=== PATIENT | male | born 1950 | race Caucasian/White ===

== ENCOUNTER 2016-10-02 05:12 | Day surgery (SDC) | payer MEDICARE, OTHER ==
[2016-10-01 09:59] LABS: HEMATOCRIT 50.1 % (42.0-54.0); HEMOGLOBIN 16.9 g/dL (13.5-17.5); MCH 32.9 pg (26.0-34.0); MCHC 33.7 g/dL (31.0-37.0); MCV 97.7 fL (80.0-100.0); MEAN PLATELET VOLUME 9.9 fL (7.4-10.4); RBC 5.13 10x6/uL (4.20-6.10); RDW 14.4 % (11.5-14.5); WBC 9.9 10x3/uL (4.8-10.8)
[~2016-10-02] VITALS: Ht 188 cm; Wt 172.4 kg
[~2016-10-02 05:12] MED LIST: ALEVE220 MG PO; ASPIRIN325 MG PO; GLUCOSAMINE & C1 CAP PO; HYDROCODONE-APA1 TAB PO; LOPRESSOR25 MG PO; MULTI-DAY VITAM1 TAB PO; ZANAFLEX4 MG PO
[2016-10-02 08:17] VITALS: BP 139/98; Ht 188 cm; Wt 172.4 kg
--- NOTE | 2016-10-02 08:53 | NUR ---
0830 CALLED SURGERY AND REPORTED TO DR. GRAHAM ABOUT REDDENED SORE TO [place] AREA. TOLD TO PROCEED WITH CHECKIN PROCESS.
[2016-10-02] MEDS ORDERED: OXYCODONE HCL10 MG PO (11:57)
--- NOTE | 2016-10-03 08:20 | OP ---
PATIENT NAME: CY BOLES MEDICAL RECORD: [id number] :52 LOCATION:D.FORMERLY [facility] ADMISSION DATE: SURGEON: CHRISTIANO GRAHAM MD DATE OF OPERATION: 10/02/2016 SURGEON: Christiano Graham MD. PREOPERATIVE DIAGNOSES: 1. Symptomatic cholelithiasis. 2. Right upper quadrant pain. 3. Morbid obesity. POSTOPERATIVE DIAGNOSES: 1. Symptomatic cholelithiasis. 2. Right upper quadrant pain. 3. Morbid obesity. PROCEDURE PERFORMED: Laparoscopic cholecystectomy. ANESTHESIA: General. COMPLICATIONS: None. SPECIMENS: Gallbladder. Case was contaminated. ESTIMATED BLOOD LOSS: 30 cc. OPERATIVE COURSE: After consent was obtained, the patient was taken to the operating room and placed in supine position on the operating table. Next, general anesthesia was given via endotracheal intubation after a timeout was taken to confirm the correct patient and procedure. The abdomen was then prepped and draped in typical sterile fashion. Local anesthetic was injected just above the umbilicus. A stab incision was made with an 11-blade scalpel. Using a 5-mm bladeless optical trocar, the abdomen was entered under direct laparoscopic vision. Adequate pneumoperitoneum was achieved. The abdominal cavity was inspected. No evidence of bowel injury. No evidence of bleeding. The patient was then placed in the steep reverse Trendelenburg position. All additional trocars were then placed after the administration of local anesthetic. Under direct laparoscopic vision, two 5-mm trocars in the right upper quadrant, 11-mm trocar in the subxiphoid position and an additional fifth trocar was placed in the right upper quadrant for traction. The patient had a significant amount of intra-abdominal fat even in max reverse Trendelenburg position. The liver was nonvisible and it was covered with greater omentum. Using the extra retractor, the greater omentum was retracted caudad exposing the fundus of the gallbladder. The fundus of the gallbladder was then grasped and retracted cephalad. The infundibulum was grasped and retracted laterally. The peritoneum was incised using electrocautery. Blunt dissection was the performed until the critical view was obtained, cystic duct lateral, cystic artery medial, liver in the posterior window, 3 clips were placed in the proximal cystic duct, 3 clips were placed in the proximal cystic artery, both the duct and artery were then transected with laparoscopic Metzenbaum scissors. The remaining portion of the gallbladder was then dissected from the liver bed using electrocautery. Once complete, it was placed into an EndoCatch bag and removed with the 11-mm OPERATIVE REPORT [id number] CY BOLES and sent for permanent pathology. The operative site was then copiously irrigated and suctioned. Careful attention was paid to hemostasis, which was obtained in the liver bed using electrocautery. At this time, the abdominal cavity was inspected. There was no evidence of bowel injury, no evidence of bleeding, no evidence of bile leak. The entire abdominal cavity was then copiously irrigated and suctioned. Again, the liver bed was inspected, no evidence of bleeding or bile leak. All [address] on both the cystic duct and cystic artery. At this time, all remaining instruments were removed. The abdomen was desufflated. Trocars were then removed. Skin was closed with 4-0 Monocryl, Mastisol and Steri-Strips. At the end of the case, all needle and instrument counts were correct. No complications occurred. The patient was extubated and transferred to the PACU in stable condition. TRANSINT:[id number] Voice Confirmation ID: [id number] DOCUMENT ID: [id number] CHRISTIANO GRAHAM MD at 0820 CC: [id number] DICTATION DATE: 10/02/16 1155 JEWEL SORTER: 10/02/16 1711 [facility] 10/02/16 [facility] [address] [place] [address]
== END 2016-10-02 15:45 | disposition home or self-care (01) ==
LOC: D.OPS 05:12 → D.PAN 10:45 → D.OPS 10:45 → D.PAN 11:00 → D.OPS 15:45
PROVIDERS: Anesthesiology
DX: K80.10 Calculus of gallbladder with chronic cholecystitis without obstruction (principal); E66.01 Morbid (severe) obesity due to excess calories; Z68.42 Body mass index [BMI] 45.0-49.9, adult

== ENCOUNTER 2016-12-10 08:55 | Outpatient (CLI) | payer MEDICARE, OTHER ==
[~2016-12-10] VITALS: Ht 190.5 cm; Wt 163.6 kg
--- NOTE | ~2016-12-10 | HEMODYNAMI ---
PATIENT:CY BOLES MEDICAL RECORD: [id number] : 52 LOCATION:[facility] ADMISSION DATE: 12/10/16 Generatedon:12/10/201611:53 Patient name: CY BOLES Patient #: [id number] SSN: D OB: 1950 Date of study: 12/10/2016 Page: Of Hemodynamic Procedure Report Patient Data Patient Demographics Procedure consent was obtained First Name: CY Gender: Male Last Name: ELVI : 1950 Middle Initial: H Age: 66 year(s) Patient #: [id number] Race: Additional ID: [id number] Contact details Address: [address] State: [place] [facility] [place]: [address] Past Medical History Allergies: No known allergies Admission Admission Data Admission Date: 12/10/2016 Admission Time: 8:55 Height (in.): 75 BSA: 2.82 (m2) Height (cm.): 190.5 BMI: 45 (kg/m2) Weight (lbs.): 360 Weight (kg.): 163.29 Lab Results Lab Result Date: 12/10/2016 Lab Result Time: 9:20 Biochemistry Name Units Result Min Max BUN mg/dl 9 --(*---)-- 7 18 Creatinine mg/dl 1 --(--*-)-- 0.6 1.3 CBC Name Units Result Min Max Hematocrit % 44.9 --(*---)-- 42 54 Hemoglobin g/dl 14.7 --(-*--)-- 13.5 17.5 Procedure Procedure Types Cath Procedure Diagnostic Procedure [facility] w/Coronaries Miscellaneous Procedures Moderate Sedation up to 30 minutes Procedure Description Procedure Date Procedure Date: 12/10/2016 Procedure Start Time: 11:40 Procedure End Time: 11:51 Procedure Staff Name Function Catalino Moore MD Performing Physician Risa Roy RT Scrub Charles Bonner RN Nurse Milton Stringer RT Monitor Procedure Data Cath Procedure Fluoroscopy Diagnostic fluoroscopy Total fluoroscopy Time: 2.6 time: 2.6 min min Diagnostic fluoroscopy Total fluoroscopy dose: dose: 1844 mGy 1844 mGy Contrast Material Contrast Material Type Amount (ml) Isovue 300 79 Entry Location Entry Primary Successful Side Size Upsize Upsize Entry Closure Veras ccessful Closure Location (Fr) 1 (Fr) 2 (Fr) Remarks Device Remarks Radial Right 6 Fr Mechanical artery Short Compression Estimated blood loss: 5 ml Diagnostic catheters Device Type Used For End Catheter Placement Medtronic Dexterity 5Fr Procedure TRAP 4.0 catheter (NO CHARGE) Medtronic Dexterity 5Fr Procedure TRAP 4.5 catheter (NO CHARGE) Procedure Complications No complications Procedure Medications Medication Administration Route Dosage Oxygen NC 2 l/min Heparin Flush Bag added to field 2 bags (1000units/500ml NS) 0.9% NaCl I.V. 100 ml/hr Radial Cocktail added to field 1 syringe (Verapomil 2mg/Nitro 400mcg/Heparin 1500units) Fentanyl I.V. 50 mcg Versed I.V. 1 mg Fentanyl I.V. 50 mcg Versed I.V. 1 mg Fentanyl I.V. 50 mcg Versed I.V. 1 mg Fentanyl I.V. 50 mcg Versed I.V. 1 mg Fentanyl I.V. 50 mcg Versed I.V. 1 mg Fentanyl I.V. 50 mcg Versed I.V. 1 mg Radial Cocktail I.A. 1 syringe (Verapomil 2mg/Nitro 400mcg/Heparin 1500units) Hemodynamics Rest BSA: 2.82 (m2) HGB: 14.7 (g/dl) O2 Consumption: Estimated: 333.76 (ml/min) O2 Co nsumption indexed: Estimated:118.35 (ml/min/m) Heart Rate: 75 (bpm) Snapshots Pre Cath Intra NCS Post Cath Vital Signs Time Heart Resp SPO2 etCO2 PQ0rcog NIBP (mmHg) Rhythm Pain Sedation Rate (ipm) (%) (mmHg) (mmHg) Status Level (bpm) 11:08:53 77 18 98 0 0 127/89(100) A-Fib 0 (11) 10(A) , No pain 11:13:16 66 19 97 0 0 110/83(96) A-Fib 0 (11) 10(A) , No pain 11:17:36 87 16 98 0 0 108/61(93) A-Fib 0 (11) 10(A) , No pain 11:21:56 79 18 95 0 0 119/64(85) A-Fib 0 (11) 10(A) , No pain 11:26:20 73 18 96 0 0 111/55(69) A-Fib 0 (11) 10(A) , No pain 11:30:42 87 18 96 0 0 130/60(83) A-Fib 0 (11) 10(A) , No pain 11:35:09 76 18 96 0 0 119/57(89) A-Fib 0 (11) 10(A) , No pain 11:39:33 88 16 95 0 0 117/55(85) A-Fib 0 (11) 10(A) , No pain 11:44:05 95 18 95 0 0 107/42(64) A-Fib 0 (11) 9(A) , No pain 11:48:31 103 18 94 0 0 102/44(62) A-Fib 0 (11) 9(A) , No pain 11:51:50 101 19 96 0 0 113/49(73) A-Fib 0 (11) 9(A) , No pain Medications Time Medication Route Dose Verified Delivered Reason Notes Effectiveness by by 11:08:01 Oxygen NC 2 l/min Charles Soto Per Ha Bonner RN physician RN 11:08:10 Heparin Flush added 2 bags Charles Kimbley used for Bag to Ha Bonner frog farmer (1000units/500ml field RN NS) 11:08:23 0.9% NaCl I.V. 100 Charles Charles Per ml/hr Ha Bonner RN physician RN 11:08:33 Radial Cocktail added 1 Charles Charles used for (Verapomil to syringe Ha Bonner frog farmer 2mg/Nitro field RN 400mcg/Heparin 1500units) 11:34:13 Fentanyl I.V. 50 mcg Charles Charles for sedation Ha Bonner RN RN 11:34:20 Versed I.V. 1 mg Charels Charles for sedation Ha Bonner RN RN 11:35:37 Fentanyl I.V. 50 mcg Charles Charles for sedation Ha Bonner RN RN 11:35:40 Versed I.V. 1 mg Charles Charles for sedation Bonner Bonner RN RN 11:38:44 Fentanyl I.V. 50 mcg Charles Charles for sedation Ha Bonner RN RN 11:38:47 Versed I.V. 1 mg Charles Charles for sedation Ha Bonner RN RN 11:40:08 Fentanyl I.V. 50 mcg Charles Charles for sedation Ha Bonner RN RN 11:40:11 Versed I.V. 1 mg Charles Charles for sedation Ha Bonner RN RN 11:41:47 Fentanyl I.V. 50 mcg Charles Charles for sedation Ha Bonner RN RN 11:41:50 Versed I.V. 1 mg Charles Charles for sedation Ha Bonner RN RN 11:41:59 Radial Cocktail I.A. 1 Charles Vasquezrey for (Verapomil syringe Ha Moore MD vasodilation 2mg/Nitro RN 400mcg/Heparin 1500units) 11:46:44 Fentanyl I.V. 50 mcg Charles Soto for sedation Ha Bonner RN RN 11:46:46 Versed I.V. 1 mg Charles Soto for sedation Ha Bonner RN oncology rn Log Time Note 10:28:39 Charles Bonner RN sent for patient. Start room use. 10:28:40 Time tracking: Regular hours 10:28:44 Plan of Care:Hemodynamics will remain stable., Cardiac rhythm will remain stable., Comfort level will be maintained., Respiratory function will remain adequate., Patient/ family verbilizes understanding of procedure., Procedure tolerated without complication., Recovers from procedure without complications.. 10:59:56 Patient received from Pre/Post Procedure Room to [facility] 1 Alert and oriented. Tansferred to table in Supine position. 10:59:57 Warm blankets applied, and laurie hugger turned on for patient comfort. 10:59:58 Correct patient and procedure confirmed by team. 10:59:59 Signed procedure consent form obtained from patient. 11:00:00 ECG and BP/O2 sat monitors applied to patient. 11:00:09 H&P Date Dictated: 12/04/2016 Within 30 days and on chart., H&P Addendum completed by physician on day of procedure. (MUST COMPLETE FOR ALL OUTPATIENTS). 11:00:11 Pre-procedure instructions explained to patient. 11:00:11 Pre-op teaching completed and patient verbalized understanding. 11:00:12 Family in waiting room. 11:00:13 Patient NPO since Midnight. 11:07:34 Vital chart was started 11:08:01 Oxygen 2 l/min NC was administered by Charles Bonner RN; Per physician; 11:08:10 Heparin Flush Bag (1000units/500ml NS) 2 bags added to field was administered by Charles Bonner RN; used for procedure; 11:08:23 0.9% NaCl 100 ml/hr I.V. was administered by Charles Bonner RN; Per physician; 11:08:33 Radial Cocktail (Verapomil 2mg/Nitro 400mcg/Heparin 1500units) 1 syringe added to field was administered by Charles Bonner RN; used for procedure; 11:15:25 Patient allergic to No known allergies 11:15:27 Is the patient allergic to Iodine/contrast media? No. 11:15:28 Is patient on blood thinner?Yes 11:15:30 ACC The patient was administered the following blood thiners within the last 24 hours: ACCPlavix 11:15:32 Patient diabetic? No. 11:15:35 Previous problem with sedation/anesthesia? No ? 11:15:35 Snore? Yes 11:15:36 Sleep apnea? No 11:15:37 Deviated septum? No 11:15:38 Opens mouth fully? Yes 11:15:39 Sticks out tongue? Yes 11:15:40 Airway obstruction? No ? 11:15:43 Dentures? Yes out 11:15:46 Modified Abdirashid's test Ulnar < 7 seconds 11:15:48 Patient pain scale 0/10 ?. 11:15:51 IV patent on arrival in left forearm with 0.9% NaCl at [facility]. 11:17:20 Lab Result : BUN 9 mg/dl 11:17:20 Lab Result : Creatinine 1 mg/dl 11:17:20 Lab Result : Hematocrit 44.9 % 11:17:20 Lab Result : Hemoglobin 14.7 g/dl 11:17:23 Lab results completed and on chart. 11:17:25 Right Radial & Right Groin area was prepped with chlora-prep and draped in sterile fashion 11:17:26 Alarms reviewed by RMagda NMagda 11:17:27 Sharps counted by scrub and verified by R.N. 11:17:29 Use device set Radial Dx 11:17:30 MBrace Wrist Support opened to sterile field. 11:17:31 Tegaderm 4 x 4 opened to sterile field. 11:17:32 Acist Manifold opened to sterile field. 11:17:32 Acist Hand Control opened to sterile field. 11:17:33 Acist Syringe opened to sterile field. 11:17:35 Medline Cath Pack opened to sterile field. 11:17:35 Bag Decanter opened to sterile field. 11:17:36 Terumo 6Fr Slender Glidesheath opened to sterile field. 11:17:36 St Bill 260cm J .035 wire opened to sterile field. 11:19:06 Baseline sample Acquired. 11:21:59 Zero performed for pressure channel P1 11:25:00 Patient Weight : 360 kg 11:25:16 Patient Height : 75 cm 11:26:10 Rhythm: atrial fibrillation 11:26:11 Full Disclosure recording started 11:33:53 Physician arrived 11:33:54 Physician arrived 11:33:54 --------ALL STOP TIME OUT------ 11:33:55 Final Timeout: patient, procedure, and site verified with staff and physician. All members of the team are in agreement. 11:33:56 Right Radial & Right Groin site verified by team. 11:33:59 Physical assessment completed. ASA score P 2 - A patient with mild systemic disease as per Catalino Moore MD. 11:34:04 Sedation plan: IV Moderate Sedation Versed, Fentanyl 11:34:13 Fentanyl 50 mcg I.V. was administered by Charles Bonner RN; for sedation; 11:34:20 Versed 1 mg I.V. was administered by Charles Bonner RN; for sedation; 11:35:37 Fentanyl 50 mcg I.V. was administered by Charles Bonner RN; for sedation; 11:35:40 Versed 1 mg I.V. was administered by Charles Bonner RN; for sedation; 11:38:44 Fentanyl 50 mcg I.V. was administered by Charles Bonner RN; for sedation; 11:38:47 Versed 1 mg I.V. was administered by Charles Bonner RN; for sedation; 11:40:08 Fentanyl 50 mcg I.V. was administered by Charles Bonner RN; for sedation; 11:40:11 Versed 1 mg I.V. was administered by Charles Bonner RN; for sedation; 11:40:48 Procedure started. 11:40:54 Local anesthetic to right radial artery with Lidocaine 2% by Catalino Moore MD.INITIAL ACCESS ONLY 11:41:03 A 6 Fr Short sheath was inserted into the Right Radial artery 11:41:47 Fentanyl 50 mcg I.V. was administered by Charles Bonner RN; for sedation; 11:41:50 Versed 1 mg I.V. was administered by Charles Bonner RN; for sedation; 11:41:59 Radial Cocktail (Verapomil 2mg/Nitro 400mcg/Heparin 1500units) 1 syringe I.A. was administered by Catalino Moore MD; for vasodilation; 11:42:29 A Luqittronic Dexterity 5Fr TRAP 4.0 catheter (NO CHARGE) was advanced over the wire and used for Procedure. 11:42:42 LV gram done using PLATT 11:42:49 Injector settings: Ml/sec: 5, Volume: 15, 11:42:54 High Pressure Extension Tubing (Ponce) opened to sterile field. 11:43:32 EF : 50 % 11:43:59 LCA angiography performed. 11:45:55 RCA angiography performed. 11:46:03 Catheter exchanged over wire. 11:46:05 A Medtronic Dexterity 5Fr TRAP 4.5 catheter (NO CHARGE) was advanced over the wire and used for Procedure. 11:46:44 Fentanyl 50 mcg I.V. was administered by Charles Bonner RN; for sedation; 11:46:46 Versed 1 mg I.V. was administered by Charles Bonner RN; for sedation; 11:47:57 LCA angiography performed. 11:49:27 Catheter removed. 11:49:34 Terumo TR Band Large opened to sterile field. 11:49:41 Sheath removed intact; hemostasis achieved with Mechanical Compression to the Right Radial artery. 11:49:44 Procedure ended.(Physican Out) 11:50:12 Fluoroscopy time 02.60 minutes. 11:50:16 Fluoroscopy dose: 1844 mGy 11:50:16 Flurop Dose total: 1844 11:50:22 Contrast amount:Isovue 300 79ml. 11:50:24 Sharps counted by scrub and verified by R.N. 11:50:26 TR band inflated with 12cc of air. 11:50:27 Insertion/operative site no bleeding no hematoma. 11:50:31 Post right radial artery:stable, clean and dry 11:50:38 Post Procedure Pulses reassessed and unchanged 11:50:40 Post-procedure physical assessment completed. ASA score P 2 - A patient with mild systemic disease as per Catalino Moore MD. 11:50:42 Post procedure rhythm: unchanged. 11:50:44 Estimated blood loss: 5 ml 11:50:45 Post procedure instruction explained to patient.Patient verbalizes understanding. 11:50:46 Patient needs reinforcement of post procedure teaching. 11:51:04 Procedure type changed to Cath procedure, Diagnostic procedure, LHC, LHC w/Coronaries, Miscellaneous Procedures, Moderate Sedation up to 30 minutes 11:51:22 Procedure and supply charges have been captured, reviewed, submitted and are correct. 11:51:25 Procedure Complication : No complications 11:51:27 Vital chart was stopped 11:51:27 See physician's report for complete and final results. 11:51:29 Report given to Pre/Post Procedure Room. 11:51:31 Patient transfered to Pre/Post Procedure Room with Stretcher. 11:51:33 Procedure ended. 11:51:33 Full Disclosure recording stopped 11:51:39 End room use (Document Last) Device Usage Item Name Manufacture Quantity Catalog Hospital Part Current Minimal Lot# / Number Charge Number Stock Stock Serial# Code [facility] 1 140-0250-00 [id number] 61028 165525 5 Wrist Vascular Support Dynamics Tegaderm 4 3M 1 [id number] 777643 082581 022533 5 x 4 Acist Acist 1 94645 028639 775608 220110 5 Manifold Medical Systems Inc Acist Hand Acist 1 71689 008100 468383 368600 5 Control Medical Systems Inc Acist Acist 1 06659 982732 240636 589480 20 Syringe Medical Systems Inc Medline Cardinal 1 [id number] 688233 29703 627775 5 Cath Pack Health Bag Microtek 1 2002S [id number] 73348 307453 5 Decanter Medical Inc. Terumo 6Fr Terumo 1 [id number] 062951 358445 406797 [address] St Bill 1 964150 793684 036179 417254 30 260cm J .035 wire Medtronic Medtronic 1 [id number] 569831 019939 5 Dexterity 5Fr TRAP 4.0 catheter (NO CHARGE) High Merit 1 [id number] 038212 57379 157076 10 Pressure Medical Extension Tubing (Ponce) Medtronic Medtronic 1 [id number] 337004 969426 5 Dexterity 5Fr TRAP 4.5 catheter (NO CHARGE) Terumo TR Terumo 1 [id number] 078569 317279 433288 40 Band Large Signature Audit [place] Stage Time Signature Unsigned Intra-Procedure 12/10/2016 Milton Stringer 11:53:41 AM RT(R) Signatures Monitor : Milton Stringer RT Signature : Date : Time : [address] [address]
--- NOTE | ~2016-12-10 | OP ---
PATIENT NAME: CY BOLES MEDICAL RECORD: [id number] :52 LOCATION:D.CAT ADMISSION DATE: SURGEON: RADHA GLEZ MD DATE OF OPERATION: 12/10/2016 PROCEDURES: 1. Left heart catheterization. 2. Selective coronary angiography. 3. Left ventriculogram. PROCEDURE IN DETAIL: After informed consent was obtained and after detailed explanation of risks, benefits as well as alternative therapies, the patient elected to proceed with angiogram and heart catheterization. The right radial area was prepped and draped in normal sterile fashion. The right radial artery was cannulated via modified Seldinger technique with placement of 6-Malay sheath. All catheters exchanged through this sheath. FINDINGS: Left ventriculogram was performed in standard 30-degree PLATT view, reveals preserved cardiac wall motion, ejection fraction 50%. SELECTIVE CORONARY ANGIOGRAPHY: 1. Left main is with no significant angiographic disease. 2. Left anterior descending has moderate irregularities, but no flow-limiting stenosis. 3. Left circumflex shows moderate irregularities, but no flow-limiting stenosis. 4. Right coronary has moderate irregularities, but no flow-limiting stenosis. OVERALL IMPRESSION: No hemodynamically significant coronary artery disease is present. Center medical management on treatment of the atrial fibrillation. TRANSINT:[id number] Voice Confirmation ID: [id number] DOCUMENT ID: [id number] RADHA GLEZ MD CC: [id number] DICTATION DATE: 12/10/16 1152 RECORD CHANGER TESTER: 12/10/16 1826 DEP CLI 12/10/16 [facility] [address] [place] [id number]
[~2016-12-10 08:55] MED LIST changes: +OXYCODONE HCL10 MG PO
[2016-12-10] MEDS ORDERED: CIALIS5 MG PO (09:11)
[2016-12-10 09:12] VITALS: BP 157/94; Ht 190.5 cm; Wt 163.6 kg
[2016-12-10 09:27] LABS: BASOPHILS 0.3 % (0-2); EOSINOPHILS 4.2 % (0-7); HEMATOCRIT 44.9 % (42.0-54.0); HEMOGLOBIN 14.7 g/dL (13.5-17.5); IMMATURE GRANULOCYTES 0.3 % (0-5); LYMPHOCYTES 19.6 % (15-50); MCH 31.1 pg (26.0-34.0); MCHC 32.7 g/dL (31.0-37.0); MCV 94.9 fL (80.0-100.0); MEAN PLATELET VOLUME 9.2 fL (7.4-10.4); MONOCYTES 12.5 % (2-11); NEUTROPHILS 63.1 % (40-80); PLATELET COUNT 227 10x3/uL (130-400); RBC 4.73 10x6/uL (4.20-6.10); RDW 14.7 % (11.5-14.5)
[2016-12-10 09:34] LABS: CALC OSMOLALITY 272 mosm/kg (275-300); CALCIUM 8.8 mg/dL (8.5-10.1); CHLORIDE - SERUM 102 mmol/L (98-107); GLUCOSE 104 mg/dL (74-106); POTASSIUM - SERUM 4.2 mmol/L (3.5-5.1); SODIUM 137 mmol/L (136-145); UREA NITROGEN 9 mg/dL (7-18); eGFR NON AFRICAN AMERICAN 80 mL/min (90-120)
--- NOTE | 2016-12-10 12:12 | NUR ---
1205 RECEIVED PT FROM [employer]BR[employer] ARTIST TECHNICAL. PT IS ALERT, DENIES ANY C/O CHEST PAIN. TR BAND IS CDI, NO BLEEDING OR HEMATOMA NOTED. CAP REFILL TO FINGERS IS BRISK, FINGERS WARM TO TOUCH. AT BEDSIDE. CALL LIGHT IN REACH.
--- NOTE | 2016-12-10 12:21 | NUR ---
TR BAND REMAINS TO R/WRIST CDI NO BLEEDING NO HEMATOMA NOTED. VSS WITH CHEST PAIN DENIED WILL MONITOR
[2016-12-10 12:22] LABS: CKMB 1.5 U/L (0.0-3.6); CREATINE KINASE 99 UL (21-232)
[2016-12-10 12:26] LABS: TROPONIN-I < 0.017 ng/mL (0.000-0.060)
--- NOTE | 2016-12-10 13:16 | NUR ---
1255 PT DENIES ANY C/O. TR BAND CDI, NO BLEEDING OR HEMATOMA NOTED. AT BEDSIDE. PT SANTOS PO FLUIDS.
--- NOTE | 2016-12-10 13:17 | NUR ---
1305 TR BAND DEFLATION HAS BEGUN WITH NO BLEEDING OR HEMATOMA NOTED. PT DENIES ANY C/O. AT BEDSIDE. VSS.
[2016-12-10] MEDS ORDERED: COUMADIN5 MG PO (13:20)
--- NOTE | 2016-12-10 14:20 | NUR ---
1400 TR BAND HAS BEEN DEFLATED AND REMOVED PER PROTOCOL. 2X2 AND TEGADERM APPLIED. NO BLEEDING OR HEMATOMA NOTED AT SITE. PT DENIES ANY C/O PAIN OR NAUSEA. DC INSTRUCTIONS REVIEWED WITH PT AND WHO VERBALIZE UNDERSTANDING. COUMADIN PRESCRIPTION GIVEN TO PT, MEDICATION REVIEWED. PT ESCORTED TO PRIVATE AUTO VIA WC BY STAFF WITH DRIVING HIM HOME.
== END 2016-12-10 14:00 | disposition home or self-care (01) ==
LOC: D.CATH 08:55
PROVIDERS: Internal Medicine Interventional Cardiology
DX: I20.9 Angina pectoris, unspecified (principal); R06.02 Shortness of breath; I48.91 Unspecified atrial fibrillation; R60.0 Localized edema; I42.0 Dilated cardiomyopathy; I50.9 Heart failure, unspecified; Z01.812 Encounter for preprocedural laboratory examination

== ENCOUNTER 2017-09-08 07:51 | Outpatient (CLI) | payer MEDICARE, OTHER ==
[~2017-09-08] VITALS: Ht 190.5 cm; Wt 168.2 kg
--- NOTE | ~2017-09-08 | OP ---
PATIENT NAME: CY BOLES MEDICAL RECORD: [id number] :52 LOCATION:D.CAT ADMISSION DATE: SURGEON: RDAHA GLEZ MD DATE OF OPERATION: 09/08/2017 PROCEDURES: 1. Aortofemoral runoff. 2. Abdominal aortography. INDICATION: Leg pain compatible with claudication. PROCEDURE IN DETAIL: After informed consent was obtained and after a detailed explanation of the risks, benefits as well as alternative therapies, the patient elected to proceed with angiogram and aortofemoral runoff. The right femoral area was prepped and draped in normal sterile fashion. The right femoral artery was cannulated via modified Seldinger technique with placement of 5-Tajik sheath. All catheters exchanged through this sheath. FINDINGS: The abdominal aortography was performed. The catheter was pulled down for aortofemoral runoff. Abdominal aortography reveals no significant non-aortic disease. No dissection or aneurysm formation. No renal artery stenosis. RIGHT LEG: A. Iliac: The common internal and external iliacs have mild irregularities, but none greater than 10%. No flow-limiting stenosis. B. Femoral system: The common superficial and deep femoral have minimal disease, nothing greater than 10%. C. Popliteal and infrapopliteal vessels are widely patent. LEFT LEG: A. Iliac: The common internal and external iliacs have mild irregularities, but none greater than 10%. No flow-limiting stenosis. B. Femoral system: The common superficial and deep femoral have minimal disease, nothing greater than 10%. C. Popliteal and infrapopliteal vessels are widely patent. OVERALL IMPRESSION: No significant peripheral vascular disease is present. Leg pain is non-arterial vascular in etiology. TRANSINT:[id number] Voice Confirmation ID: [id number] DOCUMENT ID: [id number] RADHA GLEZ MD CC: [id number] DICTATION DATE: 09/08/17 1014 UNIVERSAL BANKER: 09/08/17 1221 [facility] [address] [place] [address]
--- NOTE | ~2017-09-08 | HEMODYNAMI ---
PATIENT:CY BOLES MEDICAL RECORD: [id number] : 52 LOCATION:[facility] ADMISSION DATE: 09/08/17 Generatedon:09/08/201710:13 Patient name: CY BOLES Patient #: [id number] SSN: D OB: 1950 Date of study: 09/08/2017 Page: Of Hemodynamic Procedure Report Patient Data Patient Demographics Procedure consent was obtained First Name: CY Gender: Male Last Name: ELVI : 1950 [facility] Initial: H Age: 67 year(s) Patient #: [id number] Race: Additional ID: [id number] Contact details Address: [address] State: [place] City: [facility] Zip code: [address] Past Medical History Allergies: No known allergies Admission Admission Data Admission Date: 09/08/2017 Admission Time: 7:51 Lab Results Lab Result Date: 09/08/2017 Lab Result Time: 0:00 Biochemistry Name Units Result Min Max BUN mg/dl 11 --(-*--)-- 7 18 Creatinine mg/dl 1.2 --(---*)-- 0.6 1.3 CBC Name Units Result Min Max Hemoglobin g/dl 16.2 --(--*-)-- 13.5 17.5 Coagulation Name Units Result Min Max PT sec 14.4 --(---*)-- 11.6 15 Procedure Procedure Types Cath Procedure Miscellaneous Procedures Peripheral Cath Diagnostic Procedure Cath Peripheral Kzgxw-Alsskji-Hsu-Off Procedure Description Procedure Date Procedure Date: 09/08/2017 Procedure Start Time: 10:06 Procedure End Time: 10:13 Procedure Staff Name Function Catalino Moore MD Performing Physician Chiqui Grewal RT Monitor Sherorn Brownlee RT Scrub Trang Guajardo RN Nurse Procedure Data Cath Procedure Fluoroscopy Diagnostic fluoroscopy Total fluoroscopy Time: 0.4 time: 0.4 min min Diagnostic fluoroscopy Total fluoroscopy dose: 367 dose: 367 mGy mGy Contrast Material Contrast Material Type Amount (ml) Isovue 300 61 Entry Location Entry Primary Successful Side Size Upsize Upsize Entry Closure Succes sful Closure Location (Fr) 1 (Fr) 2 (Fr) Remarks Device Remarks Femoral Right 5 Fr Exoseal artery Estimated blood loss: 10 ml Diagnostic catheters Device Type Used For End Catheter Placement DIAGNOSTIC UF 5Fr Procedure catheter ([id number]) Procedure Complications No complications Procedure Medications Medication Administration Route Dosage 0.9% NaCl I.V. 100 ml/hr Oxygen NC 2 l/min Lidocaine 2% added to field 20 Heparin Flush Bag added to field 2 bags (1000units/500ml NS) Fentanyl I.V. 100 mcg Versed I.V. 2 mg Versed I.V. 2 mg Fentanyl I.V. 100 mcg Versed I.V. 2 mg Hemodynamics Rest HGB: 16.2 (g/dl) Heart Rate: 94 (bpm) Snapshots Pre Cath Intra NCS Post Cath Vital Signs Time Heart Resp SPO2 etCO2 NIBP (mmHg) Rhythm Pain Sedation Rate (ipm) (%) (mmHg) Status Level (bpm) 9:47:10 89 23 96 0 154/104(128) NSR 0 (11) 10(A) , No pain 9:52:15 78 15 99 36.8 168/108(125) NSR 0 (11) 10(A) , No pain 9:56:47 77 15 99 14.3 157/106(128) NSR 0 (11) 10(A) , No pain 10:01:20 95 20 97 0 156/77(117) NSR 0 (11) 10(A) , No pain 10:05:46 96 16 97 42.9 152/115(133) NSR 0 (11) 10(A) , No pain 10:10:08 88 15 99 0 159/100(145) NSR 0 (11) 10(A) , No pain Medications Time Medication Route Dose Verified Delivered Reason Notes E ffectiveness by by 9:39:34 0.9% NaCl I.V. 100ml/hr Catalino Costello used for Teresa Guajardo RN procedure 9:39:44 Oxygen NC 2 l/min Catalino Costello Per Teresa Guajardo RN physician 9:39:54 Lidocaine 2% added 20ml Catalino Bae for local to vial Teresa Moore MD anesthetic field 9:40:06 Heparin Flush added 2 bags Catalino Bae used for Bag to Teresa Moore MD procedure (1000units/500ml field NS) 10:04:10 Fentanyl I.V. 100 mcg Catalino Costello for Teresa Guajardo RN sedation 10:04:20 Versed I.V. 2 mg Catalino Costello for Teresa Guajardo RN sedation 10:06:06 Versed I.V. 2 mg Catalino Costello for Teresa Guajardo RN sedation 10:07:32 Fentanyl I.V. 100 mcg Catalino Costello for Teresa Guajardo RN sedation 10:08:14 Versed I.V. 2 mg Catalino Costello for Teresa Guajardo RN sedation Procedure Log Time Note 9:35:10 Sherron Brownlee RT(R) sent for patient. Start room use. 9:39:34 0.9% NaCl 100ml/hr I.V. was administered by Trang Guajardo RN; used for procedure; 9:39:44 Oxygen 2 l/min NC was administered by Trang Guajardo RN; Per physician; 9:39:54 Lidocaine 2% 20ml vial added to field was administered by Catalino Moore MD; for local anesthetic; 9:40:06 Heparin Flush Bag (1000units/500ml NS) 2 bags added to field was administered by Catalino Moore MD; used for procedure; 9:44:44 Time tracking: Regular hours 9:44:49 Plan of Care:Hemodynamics will remain stable., Cardiac rhythm will remain stable., Comfort level will be maintained., Respiratory function will remain adequate., Patient/ family verbilizes understanding of procedure., Procedure tolerated without complication., Recovers from procedure without complications.. 9:44:55 Patient received from Pre/Post Procedure Room to CCL 2 Alert and oriented. Tansferred to table in Supine position. 9:44:57 Warm blankets applied, and laurie hugger turned on for patient comfort. 9:44:57 Correct patient and procedure confirmed by team. 9:45:02 Signed procedure consent form obtained from patient. 9:45:11 ECG and BP/O2 sat monitors applied to patient. 9:45:37 H&P Date Dictated: 08/28/2017 Within 30 days and on chart., H&P Addendum completed by physician on day of procedure. (MUST COMPLETE FOR ALL OUTPATIENTS). 9:45:39 Pre-procedure instructions explained to patient. 9:45:40 Family in waiting room. 9:45:42 Patient NPO since Midnight. 9:45:52 Patient allergic to No known allergies 9:45:56 Is the patient allergic to Iodine/contrast media? No. 9:45:56 Vital chart was started 9:45:59 Was the patient premedicated? Yes 9:46:06 Is patient on blood thinner?No 9:46:08 Patient diabetic? No. 9:46:22 Snore? No 9:46:24 Sleep apnea? No 9:46:33 Dentures? No ? 9:46:46 Patient pain scale 0/10 ?. 9:47:00 IV patent on arrival in left forearm with 0.9% NaCl at [facility]. 9:47:44 Lab Result : BUN 11 mg/dl 9:47:44 Lab Result : Hemoglobin 16.2 g/dl 9:47:44 Lab Result : Creatinine 1.2 mg/dl 9:47:44 Lab Result : PT 14.4 sec 9:47:50 Lab results completed and on chart. 9:47:55 Bilateral groins area was prepped with chlora-prep and draped in sterile fashion 9:47:56 Alarms reviewed by R. N. 9:47:56 Sharps counted by scrub and verified by R.N. 9:48:28 Baseline sample Acquired. 9:48:46 Full Disclosure recording started 9:59:00 Rhythm: atrial fibrillation 9:59:05 Physician paged 10:03:41 Zero performed for pressure channel P1 10:03:47 Zero performed for pressure channel P1 10:03:53 Physician arrived 10:03:54 --------ALL STOP TIME OUT------ 10:03:55 Final Timeout: patient, procedure, and site verified with staff and physician. All members of the team are in agreement. 10:04:05 Bilateral groins site verified by team. 10:04:09 Physical assessment completed. ASA score P 2 - A patient with mild systemic disease as per Catalino Moore MD. 10:04:10 Fentanyl 100 mcg I.V. was administered by Trang Guajardo RN; for sedation; 10:04:14 Sedation plan: IV Moderate Sedation Medication:Versed, Fentanyl 10:04:20 Versed 2 mg I.V. was administered by Trang Guajardo RN; for sedation; 10:05:03 Use device set Femoral Dx 10:05:05 ACIST Syringe (73013) opened to sterile field. 10:05:05 Bag Decanter (2002S) opened to sterile field. 10:05:12 Medline Cath Pack ([id number]) opened to sterile field. 10:05:13 SHEATH 5FR Clarinda ([id number]) opened to sterile field. 10:05:14 DIAGNOSTIC WIRE .035 260cm J wire (773511) opened to sterile field. 10:05:15 ACIST Hand Control (83587) opened to sterile field. 10:05:16 ACIST Manifold (10389) opened to sterile field. 10:05:20 Tegaderm 4 x 4 (1626W) opened to sterile field. 10:05:21 PERCUTANEOUS ENTRY 19GA needle opened to sterile field. 10:06:06 Versed 2 mg I.V. was administered by Trang Guajardo RN; for sedation; 10:06:24 Procedure started. 10:06:34 Local anesthetic to right femoral artery with Lidocaine 2% by Catalino Moore MD.INITIAL ACCESS ONLY 10:07:17 A 5 Fr sheath was inserted into the Right Femoral artery 10:07:32 Fentanyl 100 mcg I.V. was administered by Trang Guajardo RN; for sedation; 10:07:56 A DIAGNOSTIC UF 5Fr catheter ([id number]) was advanced over the wire and used for Procedure.AFRO 10:08:13 Left leg runoff performed. 10:08:14 Versed 2 mg I.V. was administered by Trang Guajardo RN; for sedation; 10:08:27 Right leg runoff performed. 10:09:05 EXOSEAL 5Fr (EX500) opened to sterile field. 10:11:40 Sheath removed intact; hemostasis achieved with Exoseal to the Right Femoral artery. 10:11:42 Procedure ended.(Physican Out) 10:11:53 Fluoroscopy time 00.40 minutes. 10:11:57 Fluoroscopy dose: 367 mGy 10:11:57 Flurop Dose total: 367 10:12:01 Contrast amount:Isovue 300 61ml. 10:12:02 Sharps counted by scrub and verified by R.N. 10:12:07 Insertion/operative site no bleeding no hematoma. 10:12:11 Post-op/insertion site Right Femoral artery dressed using a 4 x 4 and Tegaderm. 10:12:13 Post Procedure Pulses reassessed and unchanged 10:12:20 Post procedure rhythm: unchanged. 10:12:24 Estimated blood loss: 10 ml 10:12:26 Post procedure instruction explained to patient.Patient verbalizes understanding. 10:12:41 Procedure and supply charges have been captured, reviewed, submitted and are correct. 10:13:04 Procedure Complication : No complications 10:13:07 Vital chart was stopped 10:13:07 See physician's report for complete and final results. 10:13:09 Report given to Pre/Post Procedure Room. 10:13:13 Patient transfered to Pre/Post Procedure Room with Stretcher. 10:13:15 Procedure ended. 10:13:15 Full Disclosure recording stopped 10:13:17 End room use (Document Last) Device Usage Item Name Manufacture Quantity Catalog Hospital Part Current Minimal Lot# / Number Charge Number Stock Stock Serial# Code ACIST Acist 1 10674 133763 772377 516355 20 Syringe Medical (47467) Systems Inc Bag Decanter Microtek 1 2001S 133858 40754 111946 5 (2001S) Medical Inc. Medline Cath Cardinal 1 [id number] 419985 71321 927007 5 Pack Health ([id number]) SHEATH 5FR Terumo 1 UOS419 272737 024275 553717 40 Clarinda (GLE453) DIAGNOSTIC St Bill 1 673382 963818 201692 222122 30 WIRE .035 260cm J wire (244287) ACIST Hand Acist 1 22514 050188 817261 255015 5 Control Medical (18243) Systems Inc ACIST Acist 1 34717 465602 268009 463603 5 Manifold Medical (22664) Systems Inc Tegaderm 4 x 3M 1 1626W 692409 479740 224661 5 4 (1626W) PERCUTANEOUS Cook Medical 1 [id number] 602705 702455 5 ENTRY 19GA needle DIAGNOSTIC Cardinal 1 [id number] 236966 932896 550513 10 UF 5Fr Health catheter ([id number]) EXOSEAL 5Fr Cardinal 1 EX500 794674 004510 449005 10 (EX500) Health Signature Audit Meraux Stage Time Signature Unsigned Intra-Procedure 09/08/2017 Chiqui Grewal 10:13:40 AM RT(R) Signatures Monitor : Chiqui Grewal Signature : RT Date : Time : [address] [place] [address]
[~2017-09-08 07:51] MED LIST changes: +CIALIS5 MG PO; +COUMADIN5 MG PO
[2017-09-08 08:11] VITALS: BP 157/76; Ht 190.5 cm; Wt 168.2 kg
[2017-09-08 08:28] LABS: BASOPHILS 0.3 % (0-2); EOSINOPHILS 2.8 % (0-7); HEMATOCRIT 47.5 % (42.0-54.0); HEMOGLOBIN 16.2 g/dL (13.5-17.5); IMMATURE GRANULOCYTES 0.5 % (0-5); LYMPHOCYTES 17.8 % (15-50); MCH 32.9 pg (26.0-34.0); MCHC 34.1 g/dL (31.0-37.0); MCV 96.3 fL (80.0-100.0); MEAN PLATELET VOLUME 9.5 fL (7.4-10.4); MONOCYTES 9.3 % (2-11); NEUTROPHILS 69.3 % (40-80); PLATELET COUNT 197 10x3/uL (130-400); RBC 4.93 10x6/uL (4.20-6.10); RDW 14.2 % (11.5-14.5); WBC 10.1 10x3/uL (4.8-10.8)
[2017-09-08 08:44] LABS: INR 1.16 (0.85-1.17); PROTIME 14.4 SECONDS (11.6-15.0)
[2017-09-08 08:48] LABS: ANION GAP 14.3 mmol/L (8-16); CALCIUM 8.9 mg/dL (8.5-10.1); CARBON DIOXIDE 26.3 mmol/L (21.0-32.0); CREATININE - SERUM 1.2 mg/dL (0.6-1.3); POTASSIUM - SERUM 4.6 mmol/L (3.5-5.1)
== END 2017-09-08 12:55 | disposition home or self-care (01) ==
LOC: D.CATH 07:51
PROVIDERS: Internal Medicine Interventional Cardiology
DX: M79.605 Pain in left leg (principal); M79.604 Pain in right leg; Z01.812 Encounter for preprocedural laboratory examination

== ENCOUNTER 2018-11-05 23:23 | Inpatient (IN) | payer MEDICARE, OTHER ==
[2018-11-05 23:50] LABS: HEMATOCRIT 45.2 % (42.0-54.0); HEMOGLOBIN 15.9 g/dL (13.5-17.5); MCH 32.9 pg (26.0-34.0); MCHC 35.2 g/dL (31.0-37.0); MCV 93.6 fL (80.0-100.0); MEAN PLATELET VOLUME 9.5 fL (7.4-10.4); PLATELET COUNT 181 10x3/uL (130-400); RBC 4.83 10x6/uL (4.20-6.10); RDW 14.2 % (11.5-14.5); WBC 28.2 10x3/uL (4.8-10.8)
[2018-11-06] VITALS (8 sets, daily range): BP systolic 109–139; BP diastolic 60–102; BMI 41.3; BMI 41.2
[2018-11-06 00:02] LABS: ANION GAP 16.1 mmol/L (8-16); BILIRUBIN - TOTAL 1.07 mg/dL (0.2-1.3); CALCIUM 8.3 mg/dL (8.5-10.1); CARBON DIOXIDE 19.5 mmol/L (21.0-32.0); CREATININE - SERUM 1.7 mg/dL (0.6-1.3); POTASSIUM - SERUM 4.6 mmol/L (3.5-5.1); PROTEIN - SERUM 6.9 g/dL (6.4-8.2)
[2018-11-06 00:04] LABS: APTT 55.3 SECONDS (22.8-39.4); INR 3.28 (0.85-1.17); PROTIME 32.6 SECONDS (11.6-15.0)
--- NOTE | 2018-11-06 00:23 | NUR ---
ULTRASOUND AT PT'S BEDSIDE TO DO STUDY.
[2018-11-06 00:28] LABS: LYMPHOCYTES 3 % (15-50); MONOCYTES 5 % (2-11); NEUTROPHILS 82 % (40-80); PLATELET ESTIMATE NORMAL
--- NOTE | 2018-11-06 01:28 | NUR ---
PT TO RADIOLOGY.
[2018-11-06 01:31] LABS: APPEARANCE CLEAR (CLEAR); BACTERIA NONE SEEN /hpf (NONE SEEN); BILIRUBIN NEGATIVE (NEGATIVE); COLOR DK YELLOW (YELLOW); EPITHELIAL CELLS 0-5 /hpf (0-5); GLUCOSE NEGATIVE (NEGATIVE); KETONE NEGATIVE (NEGATIVE); NITRITE NEGATIVE (NEGATIVE); PROTEIN TRACE mg/dL (NEGATIVE); RED CELLS - URINE RARE /hpf (0-5); WHITE CELLS - URINE 0-5 /hpf (0-5)
[2018-11-06 01:32] LABS: AMORPHOUS SEDIMENT >1+ /lpf (NONE SEEN); GRANULAR CAST 0-5 /lpf (NONE SEEN)
--- NOTE | 2018-11-06 01:40 | NUR ---
PT'S IV ANTIBIOTIC INVANZ FINISHED.
--- NOTE | 2018-11-06 01:52 | NUR ---
PT RETURNED FROM RADIOLOGY.
--- NOTE | 2018-11-06 02:05 | NUR ---
PT'S IV INFUSION OF NORMAL SALINE RATE CHANGED FROM 125ML/HR TO A BOLUS. INFUSION AT RATE OF 125ML/HR STOPPED AT THIS TIME AND BOLUS STARTED.
--- NOTE | 2018-11-06 03:45 | NUR ---
RECIEVED PT FROM ER VIA BED WITH HOSPITAL STAFF PRESENT. ALERT AND ORIENTED X4. RESPIRATIONS EVEN AND UNLABORED. VS STABLE AND AFEBRILE. NO VISUAL CUES OF DISTRESS NOTED. INSTRUCTED ON USING CALL LIGHT SYSTEM FOR ASSISTANCE. STATED HE UNDERSTOOD. DENIES ANY OTHER NEEDS AT THIS TIME. BED LOW, SIDE RAILS UP X2. CALL LIGHT IN REACH. WILL CONTINUE TO MONITOR.
[2018-11-06 11:20] LABS: BASOPHILS 0 % (0-2); EOSINOPHILS 0 % (0-7); HEMOGLOBIN 14.3 g/dL (13.5-17.5); IMMATURE GRANULOCYTES 2.4 % (0-5); LYMPHOCYTES 2.7 % (15-50); MCH 33.5 pg (26.0-34.0); MCHC 35.8 g/dL (31.0-37.0); MCV 93.7 fL (80.0-100.0); MEAN PLATELET VOLUME 9.8 fL (7.4-10.4); MONOCYTES 4.1 % (2-11); NEUTROPHILS 90.8 % (40-80); PLATELET COUNT 193 10x3/uL (130-400); RBC 4.27 10x6/uL (4.20-6.10); RDW 14.3 % (11.5-14.5); WBC 29.7 10x3/uL (4.8-10.8)
--- NOTE | 2018-11-06 15:27 | NUR ---
[facility] READY TO PICK HIM UP TO GO TO SURGERY. JUST GOT PHONE CALL THAT THE [facility] ARE READY TO BE GIVEN.
--- NOTE | 2018-11-06 17:45 | NUR ---
RECEIVED TO ROOM AND STABLE AT THIS TIME.NO COMPLAINTS
[2018-11-07] VITALS: BP 132/53
[2018-11-07 04:00] VITALS: BP 136/73
[2018-11-07 07:44] LABS: HEMATOCRIT 37.6 % (42.0-54.0); HEMOGLOBIN 12.8 g/dL (13.5-17.5); MCH 32.6 pg (26.0-34.0); MCV 95.7 fL (80.0-100.0); MEAN PLATELET VOLUME 9.6 fL (7.4-10.4); PLATELET COUNT 208 10x3/uL (130-400); RBC 3.93 10x6/uL (4.20-6.10); RDW 14.7 % (11.5-14.5); WBC 23.4 10x3/uL (4.8-10.8)
[2018-11-07 07:54] LABS: ALBUMIN 1.7 g/dL (3.4-5.0); ANION GAP 15.6 mmol/L (8-16); BILIRUBIN - TOTAL 1.04 mg/dL (0.2-1.3); CALCIUM 7.3 mg/dL (8.5-10.1); CARBON DIOXIDE 21.7 mmol/L (21.0-32.0); CREATININE - SERUM 1.4 mg/dL (0.6-1.3); POTASSIUM - SERUM 4.3 mmol/L (3.5-5.1); PROTEIN - SERUM 6.2 g/dL (6.4-8.2)
[2018-11-07 08:17] LABS: LYMPHOCYTES 3 % (15-50); MONOCYTES 5 % (2-11); NEUTROPHILS 85 % (40-80); PLATELET ESTIMATE NORMAL
[2018-11-07 09:45] LABS: INR 2.28 (0.85-1.17); PROTIME 24.4 SECONDS (11.6-15.0)
[2018-11-07 09:50] VITALS: BP 128/66
[2018-11-07 14:16] VITALS: BP 131/69
[2018-11-07 17:19] VITALS: BP 121/79
--- NOTE | 2018-11-07 20:05 | NUR ---
LYING IN BED. ALERT AND ORIENTED X4. RESP IRREG. BBS EXP WHEEZES. NONPROD COUGH NOTED. ABD IS DISTENDED AND FIRM. BS ARE HYPOACTIVE X4 QUADS. SCROTAL EDEMA AND REDNESS NOTED. LOMBARDO CATH PATENT AND DRAINING STEPHON URINE. 2+ EDEMA NOTED TO BLE. SCDS IN USE BILAT. NS @ 125 ML/HR INFUSING IN LT HAND WITHOUT DIFF. SALINE LOCK NOTED TO RT HAND. RATES PAIN IN SCROTUM 9. SR ELEVATED X2. CL IN REACH. MEDICATED WITH MORPHINE FOR PAIN.
[2018-11-07 20:32] VITALS: BP 123/64
[2018-11-08 01:01] VITALS: BP 125/81
--- NOTE | 2018-11-08 02:35 | NUR ---
MEDICATED WITH MORPHINE FOR C/O PAIN IN SCROTUM RATING 9. LARGE AMT OF YELLOW DRAINAGE NOTED ON BLUE PADS FROM SCROTUM. PADS CHANGED. PT HAS DIFF TURNING IN BED AND REQUIRED STAFF X2 TO TURN HIM DUE TO THE PAIN. CL IN REACH.
[2018-11-08 07:20] LABS: BASOPHILS 0.2 % (0-2); EOSINOPHILS 1.3 % (0-7); HEMATOCRIT 37.2 % (42.0-54.0); HEMOGLOBIN 12.8 g/dL (13.5-17.5); IMMATURE GRANULOCYTES 1.5 % (0-5); LYMPHOCYTES 5.9 % (15-50); MCH 32.8 pg (26.0-34.0); MCHC 34.4 g/dL (31.0-37.0); MCV 95.4 fL (80.0-100.0); MEAN PLATELET VOLUME 9.6 fL (7.4-10.4); MONOCYTES 7.8 % (2-11); NEUTROPHILS 83.3 % (40-80); PLATELET COUNT 207 10x3/uL (130-400); RDW 14.9 % (11.5-14.5); WBC 18.3 10x3/uL (4.8-10.8)
[2018-11-08 07:32] LABS: INR 2.02 (0.85-1.17); PROTIME 22.2 SECONDS (11.6-15.0)
--- NOTE | 2018-11-08 07:54 | NUR ---
PT ALERT X 4. EXPIRATORY WHEEZES TO ALL WILLAMS. IV TO LEFT HAND, PATENT, DRESSING CLEAN DRY AND INTACT. IV TO RIGHT HAND, SALINE LOCKED. ADBOMEN DISTENDED AND FIRM. SCD'S IN PLACE. PT REPORTING PAIN OF 9/10. BED LOW, CALL LIGHT IN REACH. NO OTHER NEEDS AT THIS TIME.
[2018-11-08 08:33] LABS: ALBUMIN 1.5 g/dL (3.4-5.0); BILIRUBIN - TOTAL 1.47 mg/dL (0.2-1.3); CALCIUM 7.5 mg/dL (8.5-10.1); CARBON DIOXIDE 23.1 mmol/L (21.0-32.0); CREATININE - SERUM 1.2 mg/dL (0.6-1.3); POTASSIUM - SERUM 4.1 mmol/L (3.5-5.1); PROTEIN - SERUM 6.1 g/dL (6.4-8.2)
[2018-11-08 10:12] VITALS: BP 131/76
[2018-11-08 14:37] VITALS: BP 172/95
[2018-11-08 18:17] VITALS: BP 156/93
--- NOTE | 2018-11-08 19:45 | NUR ---
LYING IN BED. ALERT AND ORIENTED X4. RATES PAIN IN SCROTUM 9. SCROTAL EDEMA AND REDNESS NOTED WITH YELLOW DRAINAGE. LOMBARDO CATH PATENT AND DRAINING STEPHON URINE. ABD OBESE, FIRM AND BS HYPOACTIVE X4 QUADS. 2+ EDEMA NOTED TO BLE. SCDS IN USE BILAT. NS @ 10 ML/HR INFUSING IN LT HAND. SR ELEVATED X2. CL IN REACH.
[2018-11-08 20:00] VITALS: BP 146/87
--- NOTE | 2018-11-08 20:45 | NUR ---
MEDICATED WITH MORPHINE FOR C/O PAIN IN SCROTUM. CL IN REACH.
[2018-11-09] VITALS: BP 151/76
--- NOTE | 2018-11-09 00:20 | NUR ---
MEDICATED WITH TORADOL ORDERED FOR C/O PAIN IN SCROTUM. CL IN REACH.
--- NOTE | 2018-11-09 03:51 | NUR ---
HAS RESTED WELL SINCE TORADOL WAS GIVEN. NO DISTRESS. CL IN REACH.
[2018-11-09 04:00] VITALS: BP 156/75
--- NOTE | 2018-11-09 04:00 | NUR ---
WOKE UP AND REQUESTED PAIN MED. MEDICATED WITH MORPHINE FOR C/O PAIN IN SCROTUM.
[2018-11-09 08:00] VITALS: BP 141/83
[2018-11-09 08:01] LABS: BASOPHILS 0.2 % (0-2); EOSINOPHILS 2.3 % (0-7); HEMATOCRIT 38.9 % (42.0-54.0); IMMATURE GRANULOCYTES 2.5 % (0-5); LYMPHOCYTES 7.8 % (15-50); MCH 31.7 pg (26.0-34.0); MCHC 33.4 g/dL (31.0-37.0); MCV 94.9 fL (80.0-100.0); MEAN PLATELET VOLUME 9.6 fL (7.4-10.4); NEUTROPHILS 77.2 % (40-80); PLATELET COUNT 234 10x3/uL (130-400)
[2018-11-09 08:06] LABS: INR 1.8 (0.85-1.17); PROTIME 20.3 SECONDS (11.6-15.0)
[2018-11-09 08:25] LABS: ALBUMIN 1.4 g/dL (3.4-5.0); ANION GAP 12.8 mmol/L (8-16); BILIRUBIN - TOTAL 1.55 mg/dL (0.2-1.3); CALCIUM 7.8 mg/dL (8.5-10.1); CARBON DIOXIDE 26.1 mmol/L (21.0-32.0); CREATININE - SERUM 1.3 mg/dL (0.6-1.3); POTASSIUM - SERUM 3.9 mmol/L (3.5-5.1); PROTEIN - SERUM 6.2 g/dL (6.4-8.2)
--- NOTE | 2018-11-09 09:03 | OP ---
PATIENT NAME: CY BOLES MEDICAL RECORD: [id number] :52 LOCATION:[facility] ADMISSION DATE:11/06/18 SURGEON: ROD PLATA MD DATE OF OPERATION: 11/06/2018 SURGEON: Rod Plata MD ANESTHESIA: General anesthesia by Farhad Mahoney CRNA DIAGNOSIS: Scrotal cellulitis, scrotal edema, ____ Emma's gangrene. PROCEDURE: Incision and drainage of scrotal edema. FINDINGS: Scrotal edema. No abscess or necrosis seen. SPECIMENS: Scrotal edema, fluid for culture. ESTIMATED BLOOD LOSS: None. CLINICAL HISTORY: This is a 68-year-old male, who is not diabetic. He complained of increasing scrotal pain for the past few days. He came to the Emergency Room and he was found to have quite severe leukocytosis with a white blood cell count of 28.2. He also had lactic acidosis with a lactic acid level of 2.2 this morning. He is in renal failure with a creatinine of 1.7. A CT scan of the abdomen shows no subcutaneous gas in the scrotum. The scrotal james are extremely thickened and inflamed. Sigmoid diverticulosis is also noted. Ultrasound of the testicles shows normal testicular flow. He is on warfarin at home for chronic atrial fibrillation. His INR was 3.28. Prior to this surgery, we gave him 2 units of fresh frozen plasma. Since he is already on IV antibiotics on the floor, we did not give any further antibiotics here in the OR. This morning when I examined him, he had some areas that looked like bruising or possibly early necrosis in the most dependent part of the scrotum. It was difficult to examine him due to the scrotal tenderness. He comes to have this area further examined under anesthesia and possibly debride if necessary. DESCRIPTION OF PROCEDURE: The patient was placed in supine position on the OR table. He was then given induction of general anesthesia. We placed the legs in frog-leg position and prepped and draped him. A Alvarez catheter was inserted into the bladder and put to bag drainage. A 16-Maltese Alvarez catheter was used for this. Looking at the scrotum, I do not see any areas of necrosis. I cannot palpate any obvious areas of fluctuance, which what appeared to be an abscess. There is fluid seeping out from the scrotal skin due to transudation. I used an 18-gauge needle and placed it into the most dependent part of the scrotum to look for an abscess. I got clear fluid out, which is just edema fluid. We sent this fluid for culture. I made a couple of small stab incisions using a #10 blade. With exploration with my fingers, no abscess cavities were found. We could actually squeeze on the scrotal skin and expressed fluid out through the incisions. I have left the incisions open to prevent abscess formation in the area. We put 4 x 4 gauze to soak up any exudation of scrotal edema fluid. The patient was awakened and brought to the recovery room. TRANSINT:[id number] Voice Confirmation ID: [id number] DOCUMENT ID: [id number] OPERATIVE REPORT [id number] CY BOLES, ROD Burnham MD at 0903 CC: [id number] DICTATION DATE: 11/06/18 165 SUPERVISOR MOTOR VEHICLE ASSEMBLY: 11/07/18 0147 ADM IN [facility] [address] [place] [address]
--- NOTE | 2018-11-09 13:07 | NUR ---
NUTRITION F/U CHART REVIEWED. PT VISIT. TOLERATING REG DIET WITH 100% INTAKE RECENT MEALS. WILL CONTINUE TO PROVIDE DIET, MONITOR INTAKE. RD FOLLOWING
[2018-11-09 14:23] VITALS: BP 126/74
--- NOTE | 2018-11-09 14:39 | NUR ---
PATIENT SLEEPING. NO NEEDS AT THIS TIME. WCTM
--- NOTE | 2018-11-09 16:00 | NUR ---
DRESSING CHANGE COMPLETED. TOLERATED WELL. TM
[2018-11-09 18:01] VITALS: BP 146/81
[2018-11-09 20:00] VITALS: BP 172/82
--- NOTE | 2018-11-09 21:35 | NUR ---
PT ALERT X 4. EXPIRATORY WHEEZES TO ALL WILLAMS. IV TO RIGHT HAND, SALINE LOCKED. IV TO LEFT HAND, PATENT, DRESSING CLEAN DRY AND INTACT. LOMBARDO IN PLACE, URINE DARK STEPHON BLOOD TINGED. SCROTUM SWOLLEN, INCISION TO POSTERIOR SIDE, DRESSING CDI. +2 EDEMA TO BLE, SCD'S IN PLACE. PT REPORTING PAIN OF 10/10, MEDICATED PER ORDERS, WILL MONITOR. BED LOW, CALL LIGHT IN REACH. NO OTHER NEEDS AT THIS TIME.
--- NOTE | 2018-11-10 01:36 | NUR ---
PT SLEEPING AT THIS TIME
[2018-11-10 04:00] VITALS: BP 165/94
[2018-11-10 05:39] LABS: BASOPHILS 0.6 % (0-2); EOSINOPHILS 3.3 % (0-7); HEMATOCRIT 38.5 % (42.0-54.0); HEMOGLOBIN 12.9 g/dL (13.5-17.5); IMMATURE GRANULOCYTES 4.7 % (0-5); LYMPHOCYTES 9.3 % (15-50); MCHC 33.5 g/dL (31.0-37.0); MCV 95.5 fL (80.0-100.0); MEAN PLATELET VOLUME 9.2 fL (7.4-10.4); MONOCYTES 12.1 % (2-11); PLATELET COUNT 271 10x3/uL (130-400); RBC 4.03 10x6/uL (4.20-6.10); RDW 15.1 % (11.5-14.5)
[2018-11-10 05:56] LABS: INR 1.56 (0.85-1.17); PROTIME 18.1 SECONDS (11.6-15.0)
[2018-11-10 06:24] LABS: ALBUMIN 1.4 g/dL (3.4-5.0); ANION GAP 10.2 mmol/L (8-16); BILIRUBIN - TOTAL 1.45 mg/dL (0.2-1.3); CALCIUM 7.6 mg/dL (8.5-10.1); CARBON DIOXIDE 26.9 mmol/L (21.0-32.0); CREATININE - SERUM 1.2 mg/dL (0.6-1.3); POTASSIUM - SERUM 4.1 mmol/L (3.5-5.1); PROTEIN - SERUM 6.2 g/dL (6.4-8.2)
[2018-11-10 08:27] VITALS: BP 140/83
--- NOTE | 2018-11-10 09:15 | NUR ---
PT RESTING IN BED. C/O PAIN TO SCROTAL AREA 05/13. PAIN MEDICATION TO BE ADMINISTERED PER MD ORDERS. IV TO LEFT HAND WITH NS @ 50ML/HR INFUSING VIA PUMP, SITE WITHOUT REDNESS OR EDEMA. SALINE LOC TO RIGHT HAND, INTACT WITHOUT REDNESS OR EDEMA. F/C PATENT TO GRAVITY. DENIES FURTHER NEEDS AT THIS TIME. CL WITHIN REACH. ENCOURAGED TO CALL WITH NEEDS. CONTINUE POC
[2018-11-10 12:45] VITALS: BP 135/84
--- NOTE | 2018-11-10 13:47 | MORECARE ---
CASE MANAGEMENT DISCHARGE SUMMARY PATIENT: CY BOLES UNIT: [id number] ADM DATE: 11/06/18 AGE: 68 : 51 SEX: M ROOM/BED: D.2201 AUTHOR: CHRISTIAN IRVIN PHYSICIAN: REFERRING PHYSICIAN: SULMA GREER MD DATE OF SERVICE: 11/10/18 Discharge Plan Patient Name: CY BOLES Facility: [facility]:[place] : 1950 Planned Disposition: Group Home Facility Anticipated Discharge Date: Discharge Date: Expected LOS: Initial Reviewer: [email or web address] Initial Review Date: 11/06/2018 Generated: 11/10/18 2:47 pm DCPIA - Discharge Planning Initial Assessment Updated by [email or web address]: Laura Bryan on 11/10/18 1:43 pm * Is the patient Alert and Oriented? Yes * How many steps to enter\exit or inside your home? HANDICAP * PCP KASH * Pharmacy [facility] [address] * Preadmission Environment Home Alone * ADLs Independent * Equipment [facility] Bed Shower Chair Walker Wheelchair * List name and contact numbers for known caregivers / representatives who currently or will assist patient after discharge: AGA HUITRON ([phone]) * Verbal permission to speak to the caregivers and representatives has been obtained from the patient. N/A * Community resources currently utilized None * Additional services required to return to the preadmission environment? Yes * Can the patient safely return to the preadmission environment? No * Has this patient been hospitalized within the prior 30 days at any hospital? No Patient Name: CY BOLES Page [id number] at 1347 All edits/amendments must be made on the electronic document DICTATION DATE: 11/10/18 1346 NETWORK PLANNER: ROSANA 11/10/18 1346 RPT#: [id number] DC DATE: STATUS: ADM IN [facility] [address] [place] [address] END OF REPORT
--- NOTE | 2018-11-10 13:57 | MORECARE ---
CASE MANAGEMENT DISCHARGE SUMMARY PATIENT: CY BOLES UNIT: [id number] ADM DATE: 11/06/18 AGE: 68 : 51 SEX: M ROOM/BED: D.2201 AUTHOR: ALBARO,DOC PHYSICIAN: REFERRING PHYSICIAN: SULMA GREER MD DATE OF SERVICE: 11/10/18 Discharge Plan Patient Name: CY BOLES Facility: [facility]:[place] : 1950 Planned Disposition: [facility] Facility Anticipated Discharge Date: Discharge Date: Expected LOS: Initial Reviewer: [email or web address] Initial Review Date: 11/06/2018 Generated: 11/10/18 2:57 pm Comments DCP- Discharge Planning Updated by [email or web address]: Laura Bryan on 11/10/18 12:[address] Patient Name: CY BOLES Admission Status: ER Accout number: [id number] Admission Date: 11-06-2018 : 1950 Admission Diagnosis: Attending: ZOEY, Current LOS: 4 Anticipated DC Date: Planned Disposition: [facility] Facility Primary Insurance: MEDICARE A & B Discharge Planning Comments: CM met with patient to complete initial dc planning assessment. CM educated patient on the CM role and verbal consent given by patient to complete assessment. Patient lives at home by himself at home, he recently lost his . His daughter in law work from his home during the day. At discharge patient [facility] and feels this is a safe discharge. Patient stated that he has a cane, hospital bed, shower, walker, wheelchair at home. He stated that he needs some help before he can return home. IMM served and explained. I will send a referral to [facility]. CM will continue to follow and will assist as needed with dc plans/needs. Reticle Printer: Laura Bryan DCPIA - Discharge Planning Initial Assessment Updated by [email or web address]: Laura Bryan on 11/10/18 1:43 pm * Is the patient Alert and Oriented? Yes * How many steps to enter\exit or inside your home? HANDICAP * PCP KASH * Pharmacy [facility] [address] * Preadmission Environment Home Alone * ADLs Independent * Equipment [facility] Bed Shower Chair Walker Wheelchair * List name and contact numbers for known caregivers / representatives who currently or will assist patient after discharge: AGA HUITRON ([phone]) * Verbal permission to speak to the caregivers and representatives has been obtained from the patient. N/A * Community resources currently utilized None * Additional services required to return to the preadmission environment? Yes * Can the patient safely return to the preadmission environment? No * Has this patient been hospitalized within the prior 30 days at any hospital? No Last DP export: 11/10/18 12:47 pm Patient Name: CY BOLES Page [phone] at 1357 All edits/amendments must be made on the electronic document DICTATION DATE: 11/10/18 135 BUSINESS SUPPORT COORDINATOR: ROSANA 11/10/18 1356 RPT#: [id number] DC DATE: STATUS: ADM IN [facility] [address] [place] [address] END OF REPORT
--- NOTE | 2018-11-10 14:27 | MORECARE ---
CASE MANAGEMENT DISCHARGE SUMMARY PATIENT: CY BOLES UNIT: [id number] ADM DATE: 11/06/18 AGE: 68 : 52 SEX: M ROOM/BED: D.2201 AUTHOR: ALBARO,DOC PHYSICIAN: REFERRING PHYSICIAN: SULMA GREER MD DATE OF SERVICE: 11/10/18 Discharge Plan Patient Name: CY BOLES Facility: [facility]:[place] : 1950 Planned Disposition: Halfway Facility Anticipated Discharge Date: Discharge Date: Expected LOS: Initial Reviewer: [email or web address] Initial Review Date: 11/06/2018 Generated: 11/10/18 3:27 pm Comments DCP- Discharge Planning Updated by [email or web address]: Laura Bryan on 11/10/18 12:[address] Patient Name: CY BOLES Admission Status: ER Accout number: [id number] Admission Date: 11-06-2018 : 1950 Admission Diagnosis: Attending: ZOEY, Current LOS: 4 Anticipated DC Date: Planned Disposition: Halfway Facility Primary Insurance: MEDICARE A & B Discharge Planning Comments: CM met with patient to complete initial dc planning assessment. CM educated patient on the CM role and verbal consent given by patient to complete assessment. Patient lives at home by himself at home, he recently lost his . His daughter in law work from his home during the day. At discharge patient would like to go to [facility] half-way and feels this is a safe discharge. Patient stated that he has a cane, hospital bed, shower, walker, wheelchair at home. He stated that he needs some help before he can return home. IMM served and explained. I will send a referral to [facility]. CM will continue to follow and will assist as needed with dc plans/needs. Cloth Spreader Screen Printing: Laura Bryan DCPIA - Discharge Planning Initial Assessment Updated by [email or web address]: Laura Bryan on 11/10/18 1:43 pm * Is the patient Alert and Oriented? Yes * How many steps to enter\exit or inside your home? HANDICAP * PCP KASH * Pharmacy [facility] [address] * Preadmission Environment Home Alone * ADLs Independent * Equipment Cane Hospital Bed Shower Chair Walker Wheelchair * List name and contact numbers for known caregivers / representatives who currently or will assist patient after discharge: AGA HUITRON ([phone]) * Verbal permission to speak to the caregivers and representatives has been obtained from the patient. N/A * Community resources currently utilized None * Additional services required to return to the preadmission environment? Yes * Can the patient safely return to the preadmission environment? No * Has this patient been hospitalized within the prior 30 days at any hospital? No External Providers External Provider: [facility] Next Contact Date: Service Request Date: Service Type: Resolution: Reviewer: Comments: Coverage Notice Reviewer: [email or web address] Destiny Bryan Notice Issued Date-Time: 11/10/2018 12:40 Notice Type: IM Discharge Notice Notice Delivered To: Patient Relationship to Patient: Rubber Stamp Assembler Name: Delivery Method: HAND - Hand Delivered Lana Days: Prior Verbal Notification: Recipient Understood Notice: Yes Recipient Signature: Med Rec Note Co-signed by Attending: Coverage Notice Comment: Reviewer: [id number] Bryan Notice Issued Date-Time: 11/10/2018 12:40 Notice Type: Patient Choice Letter Notice Delivered To: Patient Relationship to Patient: Rubber Stamp Assembler Name: Delivery Method: - Lana Days: Prior Verbal Notification: Recipient Understood Notice: Yes Recipient Signature: Yes Med Rec Note Co-signed by Attending: Coverage Notice Comment: farhan Richter DP export: 11/10/18 12:57 pm Patient Name: CY BOLES Page [phone] at 1427 All edits/amendments must be made on the electronic document DICTATION DATE: 11/10/18 1427 ELECTRICAL ASSEMBLIES SUPERVISOR: ROSANA 11/10/18 1427 RPT#: [id number] DC DATE: STATUS: ADM IN [facility] [address] [place] [address] END OF REPORT
[2018-11-10 16:45] VITALS: BP 135/69
--- NOTE | 2018-11-10 19:50 | NUR ---
AWAKE,ALERT.NO COMPLAITNS AT THS TIME. DRSG TO SCROTUM AREA SATURATED WITH YELLOW DRAINAGE.CHANGED USING ABD PAD AND 4X4. SCROTUM IS RED AND EDEMATOUS. IV INFUSING TO LEFT HAND WITHOUT REDENESS OR EDEMA NOTED. CL IN REACH .
[2018-11-10 20:00] VITALS: BP 144/73
[2018-11-11 04:00] VITALS: BP 155/77
--- NOTE | 2018-11-11 04:23 | NUR ---
I have reviewed this patient and I concur with the Shift Assessment completed by the Licensed Practical Nurse today this shift.
[2018-11-11 05:29] LABS: BASOPHILS 0.4 % (0-2); EOSINOPHILS 3.3 % (0-7); HEMATOCRIT 37.7 % (42.0-54.0); HEMOGLOBIN 12.8 g/dL (13.5-17.5); IMMATURE GRANULOCYTES 3.8 % (0-5); LYMPHOCYTES 8.2 % (15-50); MCV 94.3 fL (80.0-100.0); MEAN PLATELET VOLUME 9.2 fL (7.4-10.4); MONOCYTES 9.5 % (2-11); NEUTROPHILS 74.8 % (40-80); PLATELET COUNT 320 10x3/uL (130-400); RDW 14.8 % (11.5-14.5); WBC 14.7 10x3/uL (4.8-10.8)
[2018-11-11 05:30] LABS: INR 1.45 (0.85-1.17)
[2018-11-11 05:58] LABS: ALBUMIN 1.4 g/dL (3.4-5.0); BILIRUBIN - TOTAL 1.49 mg/dL (0.2-1.3); CALCIUM 7.6 mg/dL (8.5-10.1); CARBON DIOXIDE 25.4 mmol/L (21.0-32.0); CREATININE - SERUM 1.1 mg/dL (0.6-1.3); POTASSIUM - SERUM 4.4 mmol/L (3.5-5.1); PROTEIN - SERUM 6.2 g/dL (6.4-8.2)
--- NOTE | 2018-11-11 09:36 | NUR ---
MORNING ASSESSMENT COMPLETE. SEE ASSESSMENT FLOWSHEET FOR FURTHER DETAILS. PT LYING IN BED AAO X4 TO PERSON, PLACE, TIME, AND SITUATION. DENIES NEEDS AT THIS TIME. CL IN REACH. SIDE RAILS UP X3 FOR PT SAFETY. BED IN LOWEST POSITION.
[2018-11-11 09:41] VITALS: BP 124/69
[2018-11-11 12:42] LABS: APPEARANCE SL CLDY (CLEAR); BACTERIA MODERATE /hpf (NONE SEEN); BILIRUBIN NEGATIVE (NEGATIVE); COLOR DK YELLOW (YELLOW); EPITHELIAL CELLS 0-5 /hpf (0-5); GLUCOSE NEGATIVE (NEGATIVE); KETONE NEGATIVE (NEGATIVE); NITRITE NEGATIVE (NEGATIVE); PROTEIN NEGATIVE (NEGATIVE); SPECIFIC GRAVITY 1.015 (1.005-1.020); WHITE CELLS - URINE 0-5 /hpf (0-5)
[2018-11-11 12:43] LABS: MUCUS <1+ /lpf (NONE SEEN)
[2018-11-11 15:09] VITALS: BP 131/62
[2018-11-11 16:00] VITALS: BP 144/88
[2018-11-11 20:00] VITALS: BP 146/74
[2018-11-12] VITALS: BP 153/83
--- NOTE | 2018-11-12 03:31 | NUR ---
I have reviewed this patient and I concur with the Shift Assessment completed by the Licensed Practical Nurse today this shift.
[2018-11-12 04:00] VITALS: BP 150/86
[2018-11-12 04:09] LABS: INR 2.08 (0.85-1.17); PROTIME 22.7 SECONDS (11.6-15.0)
[2018-11-12 07:54] LABS: ANION GAP 10.1 mmol/L (8-16); CALCIUM 7.7 mg/dL (8.5-10.1); CARBON DIOXIDE 26.5 mmol/L (21.0-32.0); CREATININE - SERUM 1.1 mg/dL (0.6-1.3); POTASSIUM - SERUM 4.6 mmol/L (3.5-5.1)
[2018-11-12 08:15] LABS: BASOPHILS 0.2 % (0-2); EOSINOPHILS 2.9 % (0-7); HEMATOCRIT 36.6 % (42.0-54.0); HEMOGLOBIN 12.5 g/dL (13.5-17.5); IMMATURE GRANULOCYTES 1.7 % (0-5); LYMPHOCYTES 6.5 % (15-50); MCH 32.3 pg (26.0-34.0); MCHC 34.2 g/dL (31.0-37.0); MCV 94.6 fL (80.0-100.0); MEAN PLATELET VOLUME 9.1 fL (7.4-10.4); MONOCYTES 6.8 % (2-11); NEUTROPHILS 81.9 % (40-80); PLATELET COUNT 307 10x3/uL (130-400); RBC 3.87 10x6/uL (4.20-6.10); RDW 15.2 % (11.5-14.5); WBC 13.2 10x3/uL (4.8-10.8)
[2018-11-12 08:33] VITALS: BP 163/75
--- NOTE | 2018-11-12 10:19 | NUR ---
MORNING ASSESSMENT COMPLETE. SEE ASSESSMENT FLOWSHEET FOR FURHTER DETAILS. PT LYING IN BED AAO X4 TO PERSON, PLACE, TIME, ADN SITUATION. DENIES NEEDS AT THIS TIME. CL IN REACH. SIDE RAILS UP X3 FOR PT SAEFTY. BED IN LOWEST POSITION.
--- NOTE | 2018-11-12 12:35 | NUR ---
NUTRITION F/U CHART REVIEWED. PT CURRENTLY NPO FOR PROCEDURE TODAY. WILL PROVIDE DIET WHEN RESUMED, MONITOR PO INTAKE. RD FOLLOWING
--- NOTE | 2018-11-12 13:51 | MORECARE ---
CASE MANAGEMENT DISCHARGE SUMMARY PATIENT: CY BOLES UNIT: [id number] ADM DATE: 11/06/18 AGE: 68 : 51 SEX: M ROOM/BED: D.2201 AUTHOR: ALBARODOC PHYSICIAN: REFERRING PHYSICIAN: SULMA GREER MD DATE OF SERVICE: 11/12/18 Discharge Plan Patient Name: CY BOLES Facility: [facility]:[place] : 1950 Planned Disposition: Halfway Facility Anticipated Discharge Date: Discharge Date: Expected LOS: Initial Reviewer: [email or web address] Initial Review Date: 11/06/2018 Generated: 11/12/18 2:50 pm Comments DCP- Discharge Planning Updated by [id number]: Laura Bryan on 11/12/18 12:[address] [facility] TO DC DCP- Discharge Planning Updated by [email or web address]: Laura Bryan on 11/10/18 12:[address] Patient Name: CY BOLES Admission Status: ER Accout number: [id number] Admission Date: 11-06-2018 : 1950 Admission Diagnosis: Attending: ZOEY, Current LOS: 4 Anticipated DC Date: Planned Disposition: Halfway Facility Primary Insurance: MEDICARE A & B Discharge Planning Comments: CM met with patient to complete initial dc planning assessment. CM educated patient on the CM role and verbal consent given by patient to complete assessment. Patient lives at home by himself at home, he recently lost his . His daughter in law work from his home during the day. At discharge patient would like to go to [facility] and feels this is a safe discharge. Patient stated that he has a cane, hospital bed, shower, walker, wheelchair at home. He stated that he needs some help before he can return home. IMM served and explained. I will send a referral to [place]. CM will continue to follow and will assist as needed with dc plans/needs. Property Maintenance Supervisor: Laura Bryan DCPIA - Discharge Planning Initial Assessment Updated by [id number]: Laura Bryan on 11/10/18 1:43 pm * Is the patient Alert and Oriented? Yes * How many steps to enter\exit or inside your home? HANDICAP * PCP KASH * Pharmacy [facility] [address] * Preadmission Environment Home Alone * ADLs Independent * Equipment Cane Hospital Bed Shower Chair Walker Wheelchair * List name and contact numbers for known caregivers / representatives who currently or will assist patient after discharge: AGA HUITRON ([phone]) * Verbal permission to speak to the caregivers and representatives has been obtained from the patient. N/A * Community resources currently utilized None * Additional services required to return to the preadmission environment? Yes * Can the patient safely return to the preadmission environment? No * Has this patient been hospitalized within the prior 30 days at any hospital? No Coverage Notice Reviewer: [id number] Destiny Bryan Notice Issued Date-Time: 11/10/2018 12:40 Notice Type: IM Discharge Notice Notice Delivered To: Patient Relationship to Patient: Roll Tender Name: Delivery Method: HAND - Hand Delivered Lana Days: Prior Verbal Notification: Recipient Understood Notice: Yes Recipient Signature: Med Rec Note Co-signed by Attending: Coverage Notice Comment: Reviewer: [id number] Bryan Notice Issued Date-Time: 11/10/2018 12:40 Notice Type: Patient Choice Letter Notice Delivered To: Patient Relationship to Patient: Roll Tender Name: Delivery Method: - Lana Days: Prior Verbal Notification: Recipient Understood Notice: Yes Recipient Signature: Yes Med Rec Note Co-signed by Attending: Coverage Notice Comment: farhan vang Last DP export: 11/10/18 1:27 pm Patient Name: CY BOLES Page [phone] at 1351 All edits/amendments must be made on the electronic document DICTATION DATE: 11/12/18 1350 DICTATING MACHINE MECHANIC: ROSANA 11/12/18 1350 RPT#: [id number] DC DATE: STATUS: ADM IN [facility] [address] [place] [address] END OF REPORT
[2018-11-12 16:52] VITALS: BP 143/77
--- NOTE | 2018-11-12 20:01 | NUR ---
AWAKE,ALERT.NO COMPLAITNS VOICED AT PRESENT. IV TO RIGHT HAND INTACT WITHOUT REDNESS OR EDEMA NOTED. CONTINUES TO HAVE EDEMA,REDNESS AND DRAINAGE FROM SCROTAL AREA. VOIDING WITHOUT DIFFICULTY. CL IN REACH
[2018-11-12 21:08] VITALS: BP 149/89
[2018-11-13 01:01] VITALS: BP 163/85
--- NOTE | 2018-11-13 01:12 | NUR ---
ASSESSED, PT IS RESTING QUIET WITH EASY RESPIRATIONS AND NO DISTRESS NOTED. ASSIGNED NURSE IS AT THE BEDSIDE STARTING IV ANTIBOTICS. BED IS LOW, RAILS UP X'S 2 WITH THE CALL LIGHT AT HAND.
[2018-11-13 04:17] LABS: BASOPHILS 0.2 % (0-2); EOSINOPHILS 2.6 % (0-7); HEMATOCRIT 38.4 % (42.0-54.0); HEMOGLOBIN 13.2 g/dL (13.5-17.5); IMMATURE GRANULOCYTES 1.2 % (0-5); LYMPHOCYTES 8.9 % (15-50); MCH 32.4 pg (26.0-34.0); MCHC 34.4 g/dL (31.0-37.0); MCV 94.3 fL (80.0-100.0); MONOCYTES 5.6 % (2-11); NEUTROPHILS 81.5 % (40-80); PLATELET COUNT 317 10x3/uL (130-400); RBC 4.07 10x6/uL (4.20-6.10); WBC 12.1 10x3/uL (4.8-10.8)
[2018-11-13 04:22] LABS: PROTIME 26.3 SECONDS (11.6-15.0)
[2018-11-13 04:24] LABS: INR 2.51 (0.85-1.17)
[2018-11-13 04:26] LABS: CALC OSMOLALITY 263 mosm/kg (275-300); CALCIUM 7.8 mg/dL (8.5-10.1); CARBON DIOXIDE 26.6 mmol/L (21.0-32.0); CHLORIDE - SERUM 98 mmol/L (98-107); GLUCOSE 95 mg/dL (74-106); POTASSIUM - SERUM 4.3 mmol/L (3.5-5.1); SODIUM 131 mmol/L (136-145); UREA NITROGEN 16 mg/dL (7-18); eGFR NON AFRICAN AMERICAN 79 mL/min (90-120)
[2018-11-13 05:19] VITALS: BP 154/75
[2018-11-13 08:43] VITALS: BP 155/75
--- NOTE | 2018-11-13 11:13 | NUR ---
PATIENT RESTING. NO NEEDS AT THIS TIME
[2018-11-13 13:31] VITALS: BP 121/86
[2018-11-13 15:59] VITALS: BP 169/84
--- NOTE | 2018-11-13 20:06 | NUR ---
PT REQUESTED PAIN MEDICINE. ADMINISTERED PER ORDER. WASTED MORPHIN IN PYXIS WITH Jenny BLEVINS LPN. WHEN WASTING ACCIDENTALLY LISTED THAT 6 MG WAS WASTED AND ONLY 2 GIVEN. 6 MG WAS ADMINISTERED PER ORDER AND 2 MG WASTED IN THE SHARPS CONTAINER. CALLED PHARMACY AND SPOKE WITH ANGELINA. HE INSTRUCTED THIS NURSE TO MAKE A NOTE OF WASTE ERROR BECAUSE THERE IS NO WAY TO CORRECT. PT TOLERATED PAIN MEDIINE WELL.
--- NOTE | 2018-11-13 20:34 | NUR ---
RECEIVED ORDER TO PLACE LOMBARDO CATHETER DUE TO PERINEAL WOUND. PLACED 16 AMHARIC CATHETER. MAINTAINED STEILE FIELD. PATIENT TOLERATED WELL.
[2018-11-14] VITALS: BP 184/89
[2018-11-14 03:00] VITALS: BP 170/71
--- NOTE | 2018-11-14 03:28 | NUR ---
PT USES CALL LIGHT. REQUEST PAIN MEDICATION. RATES PAIN 10/10. ADMINISTERED PER ORDER.
[2018-11-14 06:20] LABS: BASOPHILS 0.4 % (0-2); EOSINOPHILS 2.8 % (0-7); HEMATOCRIT 36.3 % (42.0-54.0); HEMOGLOBIN 12.3 g/dL (13.5-17.5); IMMATURE GRANULOCYTES 0.8 % (0-5); LYMPHOCYTES 7.7 % (15-50); MCH 31.9 pg (26.0-34.0); MCHC 33.9 g/dL (31.0-37.0); MEAN PLATELET VOLUME 8.8 fL (7.4-10.4); MONOCYTES 6.3 % (2-11); PLATELET COUNT 272 10x3/uL (130-400); RBC 3.86 10x6/uL (4.20-6.10); RDW 14.9 % (11.5-14.5); WBC 14.8 10x3/uL (4.8-10.8)
[2018-11-14 06:28] LABS: CALC OSMOLALITY 262 mosm/kg (275-300); CALCIUM 7.6 mg/dL (8.5-10.1); CARBON DIOXIDE 28.7 mmol/L (21.0-32.0); CHLORIDE - SERUM 97 mmol/L (98-107); GLUCOSE 98 mg/dL (74-106); POTASSIUM - SERUM 4.5 mmol/L (3.5-5.1); SODIUM 130 mmol/L (136-145); UREA NITROGEN 17 mg/dL (7-18); eGFR NON AFRICAN AMERICAN 79 mL/min (90-120)
--- NOTE | 2018-11-14 06:47 | NUR ---
PT REQUESTED PAIN MEDICINE STATES THAT PAIN IS 10/10. ADMINISTERED MEDICATION PER ORDER.
[2018-11-14 08:43] VITALS: BP 148/80
--- NOTE | 2018-11-14 11:48 | NUR ---
PATIENT ATTEMPTED TO SIT ON THE SIDE OF THE BED WITH AND PONCHO PT. BED AND DRESSING CHANGED. TOLERATED WELL. SCD'S ON. WCTM
[2018-11-14 13:50] VITALS: BP 116/63
[2018-11-14 17:55] VITALS: BP 146/69
--- NOTE | 2018-11-14 20:00 | NUR ---
ALERT RESTING IN BED SEE SHIFT ASSESSMENT, REDNESS AND SWELLING NOTED TO SCROTUM, REQUESTING PAIN MEDICATIONS SOON CAN HAVE IT, CALL LIGHT IN REACH
[2018-11-15] VITALS: BP 149/836
[2018-11-15 03:00] VITALS: BP 132/87
[2018-11-15 04:46] LABS: BASOPHILS 0.5 % (0-2); HEMATOCRIT 36.2 % (42.0-54.0); HEMOGLOBIN 12.5 g/dL (13.5-17.5); IMMATURE GRANULOCYTES 0.7 % (0-5); LYMPHOCYTES 7.3 % (15-50); MCH 32.3 pg (26.0-34.0); MCHC 34.5 g/dL (31.0-37.0); MCV 93.5 fL (80.0-100.0); MEAN PLATELET VOLUME 8.8 fL (7.4-10.4); NEUTROPHILS 81.5 % (40-80); PLATELET COUNT 271 10x3/uL (130-400); RBC 3.87 10x6/uL (4.20-6.10); RDW 14.8 % (11.5-14.5); WBC 12.2 10x3/uL (4.8-10.8)
[2018-11-15 04:52] LABS: INR 3.47 (0.85-1.17); PROTIME 34.1 SECONDS (11.6-15.0)
[2018-11-15 04:58] LABS: ANION GAP 7.2 mmol/L (8-16); CARBON DIOXIDE 30.1 mmol/L (21.0-32.0); CREATININE - SERUM 1.2 mg/dL (0.6-1.3); POTASSIUM - SERUM 4.3 mmol/L (3.5-5.1)
--- NOTE | 2018-11-15 08:01 | NUR ---
ALERT AND ORIENTEDSYING IN SEMIFOWLER POSITION. COMPLAINS OF SCROTAL PAIN 10/10 AND RECEIVES MS FOR PAIN AMANAGEMENT. SCROTUM EDEMATOUS WITH ERRYTHEMA AND SMALL AMOUT OF PURULENT DRAINAGE. ABDOMEN DISTENDED WITH BS NOTED. STATES HAS BEEN HAVING BOWEL MOVEMENTS. ENCOURAGED TO USE CALL LIGHT FOR ASSIST.
[2018-11-15 09:08] VITALS: BP 166/78
[2018-11-15 12:18] VITALS: BP 146/79
[2018-11-15 17:06] VITALS: BP 156/99
[2018-11-15 20:00] VITALS: BP 141/65
--- NOTE | 2018-11-15 20:00 | NUR ---
ALERT RESTING IN BED, SCROTUM SWOLLEN RED AND WEEPING, REQUESTIGN PAIN MEDICATION, SEE SHIFT ASSESSMENT, CALL LIGHT IN REACH
[2018-11-16] VITALS: BP 158/92
[2018-11-16 03:00] VITALS: BP 148/79
[2018-11-16 04:06] LABS: BASOPHILS 0.5 % (0-2); EOSINOPHILS 4.1 % (0-7); HEMOGLOBIN 12.2 g/dL (13.5-17.5); IMMATURE GRANULOCYTES 0.4 % (0-5); LYMPHOCYTES 9.2 % (15-50); MCH 31.8 pg (26.0-34.0); MCHC 33.9 g/dL (31.0-37.0); MCV 93.8 fL (80.0-100.0); MEAN PLATELET VOLUME 8.8 fL (7.4-10.4); MONOCYTES 6.6 % (2-11); NEUTROPHILS 79.2 % (40-80); PLATELET COUNT 279 10x3/uL (130-400); RBC 3.84 10x6/uL (4.20-6.10); RDW 14.8 % (11.5-14.5); WBC 9.8 10x3/uL (4.8-10.8)
[2018-11-16 04:14] LABS: CALC OSMOLALITY 267 mosm/kg (275-300); CARBON DIOXIDE 30.1 mmol/L (21.0-32.0); CHLORIDE - SERUM 98 mmol/L (98-107); GLUCOSE 91 mg/dL (74-106); POTASSIUM - SERUM 4.2 mmol/L (3.5-5.1); SODIUM 134 mmol/L (136-145); UREA NITROGEN 13 mg/dL (7-18); eGFR NON AFRICAN AMERICAN 79 mL/min (90-120)
--- NOTE | 2018-11-16 07:15 | NUR ---
PATIENT RECIEVED RESTING IN BED WITH NO NEEDS VOICED AT THIS TIME. PATIENT ADMITTED WITH FOURNIERS GANGRENE. CL IN REACH
[2018-11-16 08:46] VITALS: BP 151/88
[2018-11-16 13:17] VITALS: BP 140/86
[2018-11-16 15:55] LABS: INR 2.59 (0.85-1.17)
[2018-11-16 16:47] VITALS: BP 143/94
--- NOTE | 2018-11-16 19:40 | NUR ---
LYING IN BED. ALERT AND ORIENTED X4. DENIES PAIN. RESP EVEN AND NONLABORED. BBS CTA BUT DIMINISHED. SCDS IN USE BILAT. BLIND IN LT EYE. ABD OBESE, DISTENDED. BS PRESENT X4 QUADS. SCROTUM IS RED, SWOLLEN. LOMBARDO CATH PATENT AND DRAINING DK YELLOW URINE. BLE ARE DRY,SCALY. 2+ EDEMA TO BLE. NS @ 30 ML/HR INFUSING IN LT HAND. NO DISTRESS. SR ELEVATED X2. CL IN REACH.
[2018-11-16 21:01] VITALS: BP 132/64
--- NOTE | 2018-11-16 22:22 | NUR ---
MEDICATED WITH MORPHINE FOR C/O PAIN IN SCROTUM RATING 10. CL IN REACH.
[2018-11-17 01:05] VITALS: BP 157/86
--- NOTE | 2018-11-17 01:30 | NUR ---
MEDICATED FOR C/O SCROTAL PAIN RATING 10 WITH MORPHINE ORDERED. CL IN REACH.
--- NOTE | 2018-11-17 04:30 | NUR ---
MEDICATED WITH MORPHINE FOR C/O PAIN IN SCROTUM RATING 10. CL IN REACH.
[2018-11-17 05:37] VITALS: BP 155/86
[2018-11-17 06:44] LABS: CALC OSMOLALITY 262 mosm/kg (275-300); CALCIUM 7.7 mg/dL (8.5-10.1); CARBON DIOXIDE 34.7 mmol/L (21.0-32.0); CHLORIDE - SERUM 95 mmol/L (98-107); GLUCOSE 112 mg/dL (74-106); SODIUM 131 mmol/L (136-145); UREA NITROGEN 11 mg/dL (7-18); eGFR NON AFRICAN AMERICAN 79 mL/min (90-120)
[2018-11-17 07:03] LABS: INR 2.27 (0.85-1.17); PROTIME 24.3 SECONDS (11.6-15.0)
[2018-11-17 07:13] LABS: HEMATOCRIT 36.7 % (42.0-54.0); HEMOGLOBIN 12.5 g/dL (13.5-17.5); MCH 31.8 pg (26.0-34.0); MCHC 34.1 g/dL (31.0-37.0); MCV 93.4 fL (80.0-100.0); MEAN PLATELET VOLUME 9.2 fL (7.4-10.4); PLATELET COUNT 331 10x3/uL (130-400); RBC 3.93 10x6/uL (4.20-6.10); RDW 14.4 % (11.5-14.5); WBC 9.5 10x3/uL (4.8-10.8)
--- NOTE | 2018-11-17 07:30 | NUR ---
PT IS RESTING IN BED WITH EYES OPEN. RESPIRATIONS ARE EVEN AND UNLABORED. PT REPORTS PAIN 10/10 IN SCROTAL AREA. SCROTAL EDEMA AND DRAINAGE NOTED. WILL ADDRESS PAIN. SEE EMAR. LOMBARDO CATHETER NOTED AND DRAINING WITHOUT DIFFICULTY. CLEAR YELLOW URINE IS SEEN IN COLLECTION BAG. BED IS IN THE LOWEST POSITION. CALL LIGHT AND BEDSIDE TABLE ARE WITHIN REACH. WILL CONT TO MONITOR.
[2018-11-17 08:57] VITALS: BP 123/90
[2018-11-17 09:02] LABS: EOSINOPHILS 8 % (0-7); LYMPHOCYTES 11 % (15-50); MONOCYTES 9 % (2-11); NEUTROPHILS 72 % (40-80)
[2018-11-17 09:03] LABS: PLATELET ESTIMATE NORMAL
[2018-11-17 10:34] VITALS: BP 110/49
--- NOTE | 2018-11-17 14:29 | NUR ---
PT WITH INCREASED AMOUNT OF EDEMA AND DRAINAGE TO SCROTUM, TESTICLES AND PERINEAL AREA. DARK RED SEDIMENT NOTED IN CATHETER TUBING. DR PLATA NOTIFIED OF PT STATUS.
[2018-11-17 16:20] VITALS: BMI 41.2
[2018-11-17 17:38] VITALS: BP 136/89
--- NOTE | 2018-11-17 18:24 | NUR ---
CONSENTS FOR PROCEDURE IN AM WITH DR DIAZ SIGNED BY PT. SIGNED CONSENTS PLACED IN PT CHART. PT DENIES FURTHER QUESTIONS AT THIS TIME.
--- NOTE | 2018-11-17 20:10 | NUR ---
LYING IN BED. ALERT AND ORIENTED X4. DEPUTY EDITOR IN CHIEF DILAUDID IN USE. ALWAYS RATES PAIN 10. RESP IRREG. BBS CTA, BUT DIMINISHED IN BLL. ABD DISTENDED AND FIRM. SCROTUM IS RED, SWOLLEN, EXCORIATED WITH BLACK NECROTIC AREA ON LT TESTICLE. LOMBARDO CATH DRAINING DK YELLOW URINE. SCDS IN USE. NS @ KVO INFUSING IN LT HAND. 1+ EDEMA NOTED TO RLE. 2 + EDEMA NOTED TO LLE. SR ELEVATED X2. CL IN REACH.
[2018-11-17 22:01] VITALS: BP 140/88
[2018-11-18] VITALS (15 sets, daily range): BP systolic 89–151; BP diastolic 50–89
--- NOTE | 2018-11-18 00:45 | NUR ---
NAPS OFF AND ON. USING MAINTENANCE ENGINEER OIL FIELD DILAUDID. RATES PAIN 10. CL IN REACH.
[2018-11-18 05:18] LABS: BASOPHILS 1.9 % (0-2); EOSINOPHILS 4.8 % (0-7); HEMATOCRIT 37.3 % (42.0-54.0); HEMOGLOBIN 12.6 g/dL (13.5-17.5); IMMATURE GRANULOCYTES 0.3 % (0-5); LYMPHOCYTES 14.9 % (15-50); MCH 31.8 pg (26.0-34.0); MCHC 33.8 g/dL (31.0-37.0); MCV 94.2 fL (80.0-100.0); MEAN PLATELET VOLUME 9.1 fL (7.4-10.4); MONOCYTES 8.3 % (2-11); NEUTROPHILS 69.8 % (40-80); PLATELET COUNT 349 10x3/uL (130-400); RBC 3.96 10x6/uL (4.20-6.10); RDW 14.5 % (11.5-14.5); WBC 9.9 10x3/uL (4.8-10.8)
[2018-11-18 05:31] LABS: ANION GAP 8.2 mmol/L (8-16); CALCIUM 7.9 mg/dL (8.5-10.1); CARBON DIOXIDE 36.3 mmol/L (21.0-32.0); CREATININE - SERUM 1.1 mg/dL (0.6-1.3); POTASSIUM - SERUM 3.5 mmol/L (3.5-5.1)
[2018-11-18 05:32] LABS: INR 1.65 (0.85-1.17); PROTIME 18.9 SECONDS (11.6-15.0)
--- NOTE | 2018-11-18 07:20 | NUR ---
PT IS RESTING IN BED WITH EYES CLOSED. RESPIRATIONS ARE EVEN AND UNLABORED. PT IS EASILY AROUSED WITH VERBAL STIMULATION. LOMBARDO CATHETER NOTED AND DRAINING WITHOUT DIFFICULTY. YELLOW URINE NOTED IN LOMBARDO COLLECTION BAG. LOMBARDO CARE GIVEN AT THIS TIME. PERINEAL AND SCROTAL EDEMA PRESENT. ESCHAR PRESENT ON SCROTUM. PT REPORTS PAIN AT THIS TIME. LAND SURVEYOR DILAUDID AVAILABLE. PT IS AAO X 4. PT DENIES FURTHER NEEDS AT THIS TIME. BED IS IN THE LOWEST POSITION. CALL LIGHT AND BEDSIDE TABLE ARE WITHIN REACH. SIDE RAILS X 2. WILL CONT TO MONITOR.
--- NOTE | 2018-11-18 07:35 | NUR ---
PT TRANSPORTED OFF FLOOR VIA BED FOR PROCEDURE. STUDENT NURSE IS AT BEDSIDE.
--- NOTE | 2018-11-18 09:31 | NUR ---
Rehab Note- Acute Inpatient Rehab prescreen order received. The patient has surgery scheduled today. He has been refusing therapy d/t increased pain and unable to tolerate the scrotal pain for therapy. Will continue to follow at this time as the patient would have to be able to tolerate the 3hrs/day of therapy for an inpatient acute rehab stay. Thank you for this referral! Mya Saldana RN CLinical Liaison, [facility] Rehab
--- NOTE | 2018-11-18 10:06 | NUR ---
HAS 3 KERLIX TIED END TO END PACKING THE WOUND
--- NOTE | 2018-11-18 11:06 | NUR ---
CONSULTED ANESTHESIA REGARDING DECREASED BLOOD PRESSURE 70/53. PLACED PATIENT IN SUPINE POSITION. DR. EMERY AT BEDSIDE. VERBAL ORDERS RECEIVED TO GIVE BOLUS OF 500CC LR. WILL CONTINUE TO MONITOR.
--- NOTE | 2018-11-18 11:54 | NUR ---
PT RETURNS TO ROOM FROM PROCEDURE TRANSPORTED BY RECOVERY STAFF MAXI SIEGEL. PT IS AAO X 4. LARGE AMOUNT OF DRAINAGE NOTED TO SCROTUM AREA. GAUZE APPLIED TO PREVIOUS DRESSING AND CLEAN ABD PADS APPLIED. BED IS IN THE LOWEST POSITION. CALL LIGHT AND BEDSIDE TABLE ARE WITHIN REACH. VSS. SEE FLOWSHEET. WILL CONT TO MONITOR. LOMBARDO CATHETER DRAINING WITHOUT DIFFICULTY.
--- NOTE | 2018-11-18 12:17 | NUR ---
NUTRITION F/U PT BACK IN ROOM FROM PROCEDURE. REG DIET TO RESUME. PT WITH GOOD PO INTAKE PRIOR TO PROCEDURE. WILL HONOR FOOD PREFERENCES, MONITOR PO INTAKE. RD FOLLOWING
--- NOTE | 2018-11-18 12:30 | NUR ---
SPOKE WITH DR DIAZ ORDERS RECD TO RESTART DIET PREVIOUS AND CONTINUE WITH PREVIOUS ORDER FOR BUILDING CARPENTER HELPER.
[2018-11-18 13:34] LABS: HEMATOCRIT 32.6 % (42.0-54.0); HEMOGLOBIN 10.9 g/dL (13.5-17.5); MCH 31.7 pg (26.0-34.0); MCHC 33.4 g/dL (31.0-37.0); MCV 94.8 fL (80.0-100.0); MEAN PLATELET VOLUME 8.9 fL (7.4-10.4); PLATELET COUNT 356 10x3/uL (130-400); RBC 3.44 10x6/uL (4.20-6.10); RDW 14.7 % (11.5-14.5)
--- NOTE | 2018-11-18 13:41 | NUR ---
LARGE AMOUNT OF SANGUINOUS DRAINAGE NOTED. DR DIAZ NOTIFIED. WILL AWAIT FURTHER ORDERS.
--- NOTE | 2018-11-18 14:14 | NUR ---
4X4 GUAZE PLACED ON PT SCROTUM ON TOP IN PLACE DRESSING. ABD PADS PLACED OVER 4X4 GUAZE. WILL CONT TO MONITOR AMOUNT OF DRAINAGE. PT IS AAO X4. SEE FLOWSHEET FOR CURRENT VITALS.
[2018-11-18 14:32] LABS: EOSINOPHILS 3 % (0-7); LYMPHOCYTES 9 % (15-50); MONOCYTES 9 % (2-11); NEUTROPHILS 79 % (40-80)
[2018-11-18 14:33] LABS: PLATELET ESTIMATE NORMAL
--- NOTE | 2018-11-18 19:45 | NUR ---
PT LYING IN BED, NO SIGNS OF DISTRESS. ALERT AND ORIENTED. VSS. PT USING DILAUDID CUSHION COVER INSPECTOR FOR PAIN CONTROL. IV LEFT HAND INFUSING NS @ KVO. NO REDNESS OR SWELLING AT INSERTION SITE. PT BLED THROUGH DRESSING TO SCROTUM ALL OVER SHEET. CHANGED LINENS, REINFORCED DRESSING WITH 4X4S AND ABD PAD. LOMBARDO DRAINING DARK STEPHON URINE. SCDS IN PLACE. DENIES NEEDS AT THIS TIME. CLIN REACH, WILL CONT TO MONITOR
--- NOTE | 2018-11-19 02:00 | NUR ---
PT PULLED OUT IV TO LEFT HAND WITH CATHETER TIP INTACT. THIS NURSE UNABLE TO RESITE IV. CALLED ER, LILLY RN SITED 20G IV RIGHT AC X1 ATTEMPT.
--- NOTE | 2018-11-19 04:25 | NUR ---
PT PULLED OUT IV TO RIGHT AC W/ CATHETER TIP INTACT STATING HE GOT TANGLED IN HIS CORDS. CALLED ER, LILLY SIEGEL RESITED 22G IV TO RIGHT ABD
[2018-11-19 05:02] VITALS: BP 130/75
[2018-11-19 05:48] LABS: INR 1.86 (0.85-1.17); PROTIME 20.8 SECONDS (11.6-15.0)
[2018-11-19 05:52] LABS: BASOPHILS 2.4 % (0-2); EOSINOPHILS 4.2 % (0-7); HEMATOCRIT 27.9 % (42.0-54.0); HEMOGLOBIN 9.3 g/dL (13.5-17.5); IMMATURE GRANULOCYTES 0.4 % (0-5); LYMPHOCYTES 17.2 % (15-50); MCH 31.4 pg (26.0-34.0); MCHC 33.3 g/dL (31.0-37.0); MCV 94.3 fL (80.0-100.0); MEAN PLATELET VOLUME 9.2 fL (7.4-10.4); MONOCYTES 10.1 % (2-11); NEUTROPHILS 65.7 % (40-80); PLATELET COUNT 346 10x3/uL (130-400); RBC 2.96 10x6/uL (4.20-6.10); RDW 14.6 % (11.5-14.5); WBC 9.4 10x3/uL (4.8-10.8)
[2018-11-19 05:53] LABS: ANION GAP 4.8 mmol/L (8-16); CALCIUM 7.8 mg/dL (8.5-10.1); CARBON DIOXIDE 35.1 mmol/L (21.0-32.0); CREATININE - SERUM 1.1 mg/dL (0.6-1.3); POTASSIUM - SERUM 3.9 mmol/L (3.5-5.1)
--- NOTE | 2018-11-19 08:16 | NUR ---
AWAKE AND ALERT. ORIENTED X3. NO C/O AT THIS TIME. LUNGS ARE CLEAR BILATERALLY, NO COUGH NOTED. SKIN IS INTACT WITHOUT REDNESS EXCEPT WOUND TO SCROTUM AREA WHICH HAS SOME OLD BLEEDING NOTED. WILL MONITOR. IV TO RIGHT LOWER ABDOMEN IS PATENT WITHOUT REDNESS AT INSERTION SITE. LOMBARDO PATENT WITH CLEAR YELLOW URINE. DENIES NEEDS.
[2018-11-19 08:20] VITALS: BP 121/64
--- NOTE | 2018-11-19 09:08 | NUR ---
Noticied VS stating hr 49 @ 0820 I went to the room, pulse checked HR is 100 via radial pulse. Patient denies any complaints or concerns at this time.
--- NOTE | 2018-11-19 11:23 | NUR ---
DRESSING TO ANETA AREA REENFORCED. [id number] NEEDS.
[2018-11-19 11:27] VITALS: BP 108/46
[2018-11-19 12:26] VITALS: BP 99/60
--- NOTE | 2018-11-19 13:00 | NUR ---
ATE ALL OF LUNCH. DENIES NEEDS. NO CHANGES AT THIS TIME.
[2018-11-19 14:44] VITALS: BP 115/56
--- NOTE | 2018-11-19 15:00 | NUR ---
SPOKE WITH DR. DIAZ RE COUMADIN DOSE. NEW ORDERS TO HOLD FOR TODAY.
--- NOTE | 2018-11-19 17:51 | NUR ---
SITTING UP IN BED FINISHING SUPPER. DENIES NEEDS. NO CHANGES NOTED.
--- NOTE | 2018-11-19 19:45 | NUR ---
PT LYING IN BED, NO SIGNS OF DISTRESS. ALERT AND ORIENTED. BREATHING EVEN, UNLABORED ON 02 2L/NC. INFORMED PT HE WOULD BE NPO AFTER MIDNIGHT, VERBALIZED UNDERSTANDING. IV RIGHT ABDOMEN INFUSING NS @ KVO W/ DILAUDID TRACTOR TRAILER TRUCK DRIVER. PT STATES TRACTOR TRAILER TRUCK DRIVER IS HELPING WITH PAIN TO SCROTUM. DRESSING TO SCROTUM WITH SMALL AMOUNT OF SEROSANGUINEOUS DRAINAGE TO OUTSIDE OF DRESSING. +1 EDEMA TO BILAT LOWER EXT. REPLACED ARM BAND WITH ONE THAT HAS HIS NEW ROOM NUMBER ON IT. CONSENTS HAVE ALREADY BEEN SIGNED FOR PROCEDURE. LOMBARDO DRAINING CLEAR YELLOW URINE. SCDS IN PLACE TO BILAT LEGS. PROVIDED PT WITH LARGE SPRITE. DENIES ANY NEEDS OR COMPLAINTS AT THIS TIME. CL IN REACH, WILL CONT TO MONITOR
[2018-11-19 20:52] VITALS: BP 127/64
[2018-11-20] VITALS (11 sets, daily range): BP systolic 100–153; BP diastolic 56–81
[2018-11-20 03:53] LABS: BASOPHILS 1.8 % (0-2); EOSINOPHILS 6.4 % (0-7); HEMATOCRIT 26.6 % (42.0-54.0); HEMOGLOBIN 8.9 g/dL (13.5-17.5); IMMATURE GRANULOCYTES 0.7 % (0-5); LYMPHOCYTES 17.8 % (15-50); MCH 31.6 pg (26.0-34.0); MCHC 33.5 g/dL (31.0-37.0); MCV 94.3 fL (80.0-100.0); MEAN PLATELET VOLUME 8.7 fL (7.4-10.4); MONOCYTES 11.2 % (2-11); NEUTROPHILS 62.1 % (40-80); PLATELET COUNT 316 10x3/uL (130-400); RBC 2.82 10x6/uL (4.20-6.10); RDW 14.5 % (11.5-14.5); WBC 8.3 10x3/uL (4.8-10.8)
[2018-11-20 04:00] LABS: ANION GAP 4.1 mmol/L (8-16); CALCIUM 7.7 mg/dL (8.5-10.1); CARBON DIOXIDE 37.5 mmol/L (21.0-32.0); CREATININE - SERUM 1.2 mg/dL (0.6-1.3); POTASSIUM - SERUM 3.6 mmol/L (3.5-5.1)
[2018-11-20 04:04] LABS: INR 1.52 (0.85-1.17); PROTIME 17.7 SECONDS (11.6-15.0)
--- NOTE | 2018-11-20 07:36 | NUR ---
RESTING QUIETLY IN BED WITH EYES CLOSED. ROUSES TO VERBAL STIMULATION. ORIENTED X3. LUNGS ARE CLEAR BILATERALLY, NO COUGH NOTED. SKIN IS INTACT WITHOUT REDNESS EXCEPT INCISION TO ANETA AREA WHICH HAS A DRY INTACT DRESSING IN PLACE. IV TO RIGHT AC IS PATENT WITHOUT REDNESS AT INSERTION SITE. DENIES NEEDS. SCD'S IN PLACE. LOMBARDO PATENT WITH CLEAR YELLOW URINE.
--- NOTE | 2018-11-20 10:21 | NUR ---
IS NPO FOR SURGERY AT THIS TIME. ALL AM MEDS HELD EXCEPT METOPROLOL. DENIES NEEDS.
--- NOTE | 2018-11-20 13:19 | NUR ---
PREOP MEDICATIONS GIVEN
--- NOTE | 2018-11-20 17:49 | NUR ---
PATIENT RESTING IN BED. ATE 100% OF DINNER WITH NO NAUSEA NOTED. DENIES PAIN. DENIES NEEDS. WILL CONTINUE TO MONITOR.
--- NOTE | 2018-11-20 19:55 | NUR ---
WENT IN TO MEET AND ASSESS PT. CHECKED SCROTOM BECAUSE I&D WAS PERFORMED EARLIER IN DAY. SCROTOM, BOTTOM SHEET, TOP SHEET, AND BLANKET SATURATED IN BLOOD. CHARGE NURSE CAME TO ROOM. AGREED TO PAGE ROLLER PRINT TENDER DR. JUAN VILLEGAS WITH IMMEDIATE RETURN CALL. READ THROUGH AM LABS WITH . RECEIVED ORDERS TO OBTAIN STAT CBC, PT, INR, APTT. THOSE ORDERS IMMEDIATELY PUT IN. DR. VILLEGAS INSTRUCTED TO CHANGE DRESSING EXCEPT WHAT WAS CLOTTED OFF. PERFORMED DRESSING CHANGE. ALLOWED CLOTTED OFF PACKING TO BE REINFORCED. APPLIED NEW GAUZE AND FOUR X FOURS AND ADDITIONALLY REINFORCED WITH ABD PADS. BED CHANGED DURING WOUND CARE. PT TOLERATED WELL. LAB IN ROOM TO OBTAIN BLOOD. AWAITING RESULTS AT THIS TIME.
--- NOTE | 2018-11-20 20:44 | NUR ---
SPOKE WITH CHARGE NURSE ABOUT PREVIOUS H&H. LAST TYPE AND SCREEN WAS 11/05.
[2018-11-20 20:54] LABS: INR 1.43 (0.85-1.17); PROTIME 16.9 SECONDS (11.6-15.0)
[2018-11-20 20:55] LABS: APTT 35.5 SECONDS (22.8-39.4)
--- NOTE | 2018-11-20 21:00 | NUR ---
POST OP SURGICAL SCROTUM WITH SIGNIFICANT AMOUNT OF BLOOD FROM SITE. DRESSING CRY WITH BLOOD. ASKED CONTROL CLERK REPAIRS TO REINFORCE WITH MORE GAUZE AND CALL MD. GOT ORDERS FOR H AND H. WILL CONTINUE TO MONTELIJAH.
[2018-11-20 21:07] LABS: BASOPHILS 2.7 % (0-2); EOSINOPHILS 5.4 % (0-7); HEMATOCRIT 26.2 % (42.0-54.0); HEMOGLOBIN 8.7 g/dL (13.5-17.5); IMMATURE GRANULOCYTES 0.4 % (0-5); LYMPHOCYTES 19.1 % (15-50); MCH 31.6 pg (26.0-34.0); MCHC 33.2 g/dL (31.0-37.0); MCV 95.3 fL (80.0-100.0); MEAN PLATELET VOLUME 8.9 fL (7.4-10.4); MONOCYTES 9.2 % (2-11); NEUTROPHILS 63.2 % (40-80); PLATELET COUNT 332 10x3/uL (130-400); RBC 2.75 10x6/uL (4.20-6.10); RDW 14.6 % (11.5-14.5); WBC 8.9 10x3/uL (4.8-10.8)
--- NOTE | 2018-11-20 21:29 | NUR ---
RECHECKED DRESSING. SCROTOM STILL BLEEDING AND BUT DRESSING NOT SATURATED. APPLIED ICE PACK TO AREA TO AID IN CLOTTING.
--- NOTE | 2018-11-20 22:50 | NUR ---
PT BLEEDING SLOWED DOWN. PT ALERT AND ORIENTED. DENIES NEEDS AT THIS TIME.
--- NOTE | 2018-11-20 23:30 | NUR ---
PT ACCIDENTALLY PULLED OUT IV. WILL ATTEMPT TO RESITE.
[2018-11-21] VITALS: BP 121/63
--- NOTE | 2018-11-21 00:04 | NUR ---
IV RESITED TO THE RIGHT AC 20 GUAGE.
[2018-11-21 03:00] VITALS: BP 120/58
--- NOTE | 2018-11-21 06:54 | NUR ---
I CONCUR WITH TOOL ROOM SUPERVISOR ASSESSMENT.
[2018-11-21 07:02] LABS: BASOPHILS 2.2 % (0-2); EOSINOPHILS 5.4 % (0-7); HEMATOCRIT 24.3 % (42.0-54.0); HEMOGLOBIN 8.2 g/dL (13.5-17.5); IMMATURE GRANULOCYTES 0.4 % (0-5); LYMPHOCYTES 17.5 % (15-50); MCHC 33.7 g/dL (31.0-37.0); MCV 94.9 fL (80.0-100.0); MEAN PLATELET VOLUME 8.9 fL (7.4-10.4); MONOCYTES 10.8 % (2-11); NEUTROPHILS 63.7 % (40-80); PLATELET COUNT 321 10x3/uL (130-400); RBC 2.56 10x6/uL (4.20-6.10); RDW 14.5 % (11.5-14.5); WBC 9.6 10x3/uL (4.8-10.8)
[2018-11-21 07:12] LABS: ANION GAP 7.7 mmol/L (8-16); CALCIUM 7.6 mg/dL (8.5-10.1); CARBON DIOXIDE 33.1 mmol/L (21.0-32.0); CREATININE - SERUM 1.1 mg/dL (0.6-1.3); POTASSIUM - SERUM 3.8 mmol/L (3.5-5.1)
[2018-11-21 07:19] LABS: INR 1.39 (0.85-1.17); PROTIME 16.5 SECONDS (11.6-15.0)
--- NOTE | 2018-11-21 08:35 | NUR ---
PT LAYING IN BED RESTING WITH EYES CLOSED, AWOKEN EASILY TO VERBAL STIMULI. DENIES NEEDS AT THIS TIME. ROUTINE MEDICATIONS TO BE GIVEN PER EMAR ORDER. LCTA, DRESSING TO SCROTUM BLOODY AND NEEDING CHANGED, DRESSING TO BE CHANGED. BED LOW AND LOCKED, SR UP X2, CL IN EASY REACH. WILL CONTINUE TO MONITOR.
[2018-11-21 09:50] VITALS: BP 111/63
--- NOTE | 2018-11-21 11:58 | NUR ---
PT'S DRESSING CHANGED TO SCROTUM PER DAILY WOUNDCARE ORDER. PT TOLERATED WELL, VOICES NO NEEDS AT THIS TIME. DRESSING CDI. SR UP X2, CL IN EASY REACH. BED LOW AND LOCKED.
[2018-11-21 14:41] VITALS: BP 119/69
--- NOTE | 2018-11-21 15:26 | NUR ---
I have reviewed this patient and I concur with the Shift Assessment completed by the Licensed Practical Nurse today this shift.
[2018-11-21 17:12] VITALS: BP 153/75
[2018-11-21 20:00] VITALS: BP 110/48
[2018-11-22] VITALS: BP 126/55
[2018-11-22 03:00] VITALS: BP 114/95
[2018-11-22 05:52] LABS: BASOPHILS 1.6 % (0-2); EOSINOPHILS 7.8 % (0-7); HEMATOCRIT 21.7 % (42.0-54.0); IMMATURE GRANULOCYTES 0.5 % (0-5); LYMPHOCYTES 19.9 % (15-50); MCH 32.2 pg (26.0-34.0); MCHC 34.1 g/dL (31.0-37.0); MCV 94.3 fL (80.0-100.0); MEAN PLATELET VOLUME 8.6 fL (7.4-10.4); MONOCYTES 8.9 % (2-11); NEUTROPHILS 61.3 % (40-80); PLATELET COUNT 321 10x3/uL (130-400); RDW 14.6 % (11.5-14.5); WBC 7.3 10x3/uL (4.8-10.8)
[2018-11-22 06:08] LABS: HEMOGLOBIN 7.4 g/dL (13.5-17.5)
[2018-11-22 06:15] LABS: ALBUMIN 1.5 g/dL (3.4-5.0); BILIRUBIN - TOTAL 0.57 mg/dL (0.2-1.3); CALCIUM 7.7 mg/dL (8.5-10.1); CARBON DIOXIDE 35.4 mmol/L (21.0-32.0); CREATININE - SERUM 1.1 mg/dL (0.6-1.3); POTASSIUM - SERUM 3.4 mmol/L (3.5-5.1); PROTEIN - SERUM 5.9 g/dL (6.4-8.2)
--- NOTE | 2018-11-22 06:21 | NUR ---
LAB CALL HG OF 7.4 CALL TO [facility] AT [phone] AWATTING CALL BACK.
[2018-11-22 08:21] VITALS: BP 125/62
--- NOTE | 2018-11-22 08:50 | NUR ---
MORNING ASSESSMENT COMPLETE. SEE ASSESSMENT FLOWSHEET FOR FURHTER DETIALS. PT LYING IN BED AAO X4 TO PERSON, PLACE, TIME, AND SIUTATION. DENIES NEEDS AT THIS TIME. CL IN REACH. SIDE RAILS UP X3 FOR PT SAEFTY BED IN LOWEST POSITION. WILL BE GIVING 2U PRBC TODAY PER H[facility] 7.4
[2018-11-22 14:23] VITALS: BP 148/64
[2018-11-22 20:00] VITALS: BP 99/62
[2018-11-23] VITALS: BP 121/58
[2018-11-23 03:00] VITALS: BP 120/60
[2018-11-23 04:21] LABS: LYMPHOCYTES 19.8 % (15-50); MCH 32.2 pg (26.0-34.0); MCHC 34.6 g/dL (31.0-37.0); MCV 93.1 fL (80.0-100.0); NEUTROPHILS 67.2 % (40-80); PLATELET COUNT 343 10x3/uL (130-400); RDW 15.1 % (11.5-14.5); WBC 7.1 10x3/uL (4.8-10.8)
[2018-11-23 04:30] LABS: HEMATOCRIT 26.9 % (42.0-54.0); HEMOGLOBIN 9.3 g/dL (13.5-17.5); RBC 2.89 10x6/uL (4.20-6.10)
[2018-11-23 04:47] LABS: ALBUMIN 1.6 g/dL (3.4-5.0); ALT (SGPT) 41 U/L (10-68); CALC OSMOLALITY 262 mosm/kg (275-300); CALCIUM 7.6 mg/dL (8.5-10.1); CARBON DIOXIDE 35.7 mmol/L (21.0-32.0); CHLORIDE - SERUM 94 mmol/L (98-107); CREATININE - SERUM 0.9 mg/dL (0.6-1.3); GLUCOSE 97 mg/dL (74-106); POTASSIUM - SERUM 3.3 mmol/L (3.5-5.1); SODIUM 131 mmol/L (136-145); UREA NITROGEN 13 mg/dL (7-18); eGFR NON AFRICAN AMERICAN 89 mL/min (90-120)
[2018-11-23 05:04] LABS: ALKALINE PHOSPHATASE 89 U/L (46-116); BILIRUBIN - TOTAL 0.62 mg/dL (0.2-1.3); PROTEIN - SERUM 6.4 g/dL (6.4-8.2)
--- NOTE | 2018-11-23 07:31 | NUR ---
PATIENT RESTING IN BED. ALERT AND ORIENTED. LUNGS CLEAR BILATERALLY IN ALL WILLAMS. HEART SOUNDS S1 AND S2 HEART IN ALL WILLAMS. BOWEL SOUNDS ACTIVE X 4. IV TO RIGHT AC PATENT. SKIN INTACT WITHOUT REDNESS. DRESSING C/D/I. O2 AT 2L PRN IN PLACE NC. DENIES PAIN. DENIES NEEDS. WILL CONTINUE TO MONITOR.
[2018-11-23 09:19] VITALS: BP 109/79
--- NOTE | 2018-11-23 09:45 | NUR ---
PATIENT IN BED EATING BREAKFAST. DENIES NEEDS.
--- NOTE | 2018-11-23 12:49 | NUR ---
PATIENT IN BED EATING LUNCH. IV TUBING CHANGED. DENIES PAIN. DENIES NEEDS
[2018-11-23 13:10] VITALS: BP 125/84
--- NOTE | 2018-11-23 13:36 | NUR ---
DRESSING CHANGED TO SCROTUM PER ORDER
--- NOTE | 2018-11-23 14:34 | NUR ---
BOLUS DOSE GIVEN FROM MOTORCYCLE REPAIR SHOP SUPERVISOR PER REQUEST AFTER DRESSING CHANGE
[2018-11-23 16:16] VITALS: BP 115/68
--- NOTE | 2018-11-23 17:41 | NUR ---
LYING IN BED EATING DINNER. DENIES NEEDS.
--- NOTE | 2018-11-23 18:35 | NUR ---
PATIENT LYING IN BED. DENIES NEEDS
--- NOTE | 2018-11-23 20:13 | NUR ---
PT RECEIVED WITH EYES CLOSED AND CHEST RISING. NO CONCERNS NOTED AT THIS TIME. CALL LIGHT IN REACH. WILL CONTINUE TO OBSERVE.
[2018-11-23 21:20] VITALS: BP 151/74
--- NOTE | 2018-11-23 23:12 | NUR ---
MEDICATIONS GIVEN PER MAR, WITHOUT DIFFICULTY. WILL CONTNUE OBSERVE. CALL LIGHT IN REACH.
[2018-11-24 00:26] VITALS: BP 174/80
[2018-11-24 04:38] VITALS: BP 148/66
[2018-11-24 06:06] LABS: HEMATOCRIT 28.2 % (42.0-54.0); HEMOGLOBIN 9.4 g/dL (13.5-17.5); MCH 30.9 pg (26.0-34.0); MCHC 33.3 g/dL (31.0-37.0); MCV 92.8 fL (80.0-100.0); PLATELET COUNT 361 10x3/uL (130-400); RBC 3.04 10x6/uL (4.20-6.10); RDW 14.9 % (11.5-14.5); WBC 8.1 10x3/uL (4.8-10.8)
[2018-11-24 06:19] LABS: INR 1.42 (0.85-1.17); PROTIME 16.8 SECONDS (11.6-15.0)
--- NOTE | 2018-11-24 06:45 | NUR ---
PT RESTING WITH EYES CLOSED AND CHEST RISING. EASILY AWOKEN AND RECEIVED MEDICATIONS, TOLERATED WELL. WILL CONTINUE TO OBSERVE.
[2018-11-24 07:12] LABS: ALBUMIN 1.6 g/dL (3.4-5.0); ALKALINE PHOSPHATASE 91 U/L (46-116); ALT (SGPT) 46 U/L (10-68); CALC OSMOLALITY 268 mosm/kg (275-300); CALCIUM 7.9 mg/dL (8.5-10.1); CARBON DIOXIDE 36.5 mmol/L (21.0-32.0); CHLORIDE - SERUM 95 mmol/L (98-107); GLUCOSE 92 mg/dL (74-106); POTASSIUM - SERUM 3.5 mmol/L (3.5-5.1); PROTEIN - SERUM 6.5 g/dL (6.4-8.2); SODIUM 135 mmol/L (136-145); UREA NITROGEN 11 mg/dL (7-18); eGFR NON AFRICAN AMERICAN 79 mL/min (90-120)
[2018-11-24 08:29] VITALS: BP 115/63
[2018-11-24 09:16] LABS: BASOPHILS 2 % (0-2); EOSINOPHILS 11 % (0-7); LYMPHOCYTES 13 % (15-50); MONOCYTES 13 % (2-11); NEUTROPHILS 54 % (40-80); PLATELET ESTIMATE NORMAL
[2018-11-24 09:17] LABS: ANISOCYTOSIS OCC; HYPOCHROMASIA OCC; ROULEAUX OCC
--- NOTE | 2018-11-24 12:21 | NUR ---
NUTRITION F/U PT TOLERATING DIABETIC DIET WITH 100% INTAKE RECENT MEALS. WILL CONTINUE TO PROVIDE DIET, MONITOR PO INTAKE. RD FOLLOWING
[2018-11-24 12:30] VITALS: BP 96/65
[2018-11-24 16:05] VITALS: BP 109/59
[2018-11-24 22:16] VITALS: BP 98/83
[2018-11-25 04:51] VITALS: BP 98/54
[2018-11-25 05:23] LABS: BASOPHILS 1.4 % (0-2); EOSINOPHILS 12.7 % (0-7); HEMATOCRIT 27.3 % (42.0-54.0); HEMOGLOBIN 9.1 g/dL (13.5-17.5); IMMATURE GRANULOCYTES 0.6 % (0-5); LYMPHOCYTES 17.3 % (15-50); MCH 31.1 pg (26.0-34.0); MCHC 33.3 g/dL (31.0-37.0); MCV 93.2 fL (80.0-100.0); MEAN PLATELET VOLUME 8.6 fL (7.4-10.4); MONOCYTES 8.4 % (2-11); NEUTROPHILS 59.6 % (40-80); PLATELET COUNT 337 10x3/uL (130-400); RBC 2.93 10x6/uL (4.20-6.10); RDW 14.7 % (11.5-14.5)
[2018-11-25 05:41] LABS: ALBUMIN 1.6 g/dL (3.4-5.0); ANION GAP 4.7 mmol/L (8-16); BILIRUBIN - TOTAL 0.42 mg/dL (0.2-1.3); CARBON DIOXIDE 36.6 mmol/L (21.0-32.0); CREATININE - SERUM 1.1 mg/dL (0.6-1.3); POTASSIUM - SERUM 3.3 mmol/L (3.5-5.1); PROTEIN - SERUM 6.3 g/dL (6.4-8.2)
[2018-11-25 08:30] VITALS: BP 121/76
--- NOTE | 2018-11-25 12:34 | MORECARE ---
CASE MANAGEMENT DISCHARGE SUMMARY PATIENT: CY BOLES UNIT: [id number] ADM DATE: 11/06/18 AGE: 68 : 51 SEX: M ROOM/BED: D.2206 AUTHOR: ALBARODOC PHYSICIAN: REFERRING PHYSICIAN: SULMA GREER MD DATE OF SERVICE: 11/25/18 Discharge Plan Patient Name: CY BOLES Facility: [facility]:[place] : 1950 Planned Disposition: Usp Facility Anticipated Discharge Date: Discharge Date: Expected LOS: Initial Reviewer: [email or web address] Initial Review Date: 11/06/2018 Generated: 11/25/18 1:34 pm Comments DCP- Discharge Planning Updated by [email or web address]: Laura Bryan on 11/25/18 11:[address] REFERRAL SENT TO [facility] DCP- Discharge Planning Updated by [email or web address]: Laura Bryan on 11/12/18 12:[address] PATIENT HAS BEEN ACCEPTED TO [facility] WHEN HE IS STABLE TO DC DCP- Discharge Planning Updated by [id number]: Laura Bryan on 11/10/18 12:[address] Patient Name: CY BOLES Admission Status: ER Accout number: [id number] Admission Date: 11-06-2018 : 1950 Admission Diagnosis: Attending: ZOEY, Current LOS: 4 Anticipated DC Date: Planned Disposition: Usp Facility Primary Insurance: MEDICARE A & B Discharge Planning Comments: CM met with patient to complete initial dc planning assessment. CM educated patient on the CM role and verbal consent given by patient to complete assessment. Patient lives at home by himself at home, he recently lost his . His daughter in law work from his home during the day. At discharge patient would like to go to [facility] and feels this is a safe discharge. Patient stated that he has a cane, hospital bed, shower, walker, wheelchair at home. He stated that he needs some help before he can return home. IMM served and explained. I will send a referral to [facility]. CM will continue to follow and will assist as needed with dc plans/needs. Construction Recruiter: Laura Bryan DCPIA - Discharge Planning Initial Assessment Updated by [id number]: Laura Bryan on 11/10/18 1:43 pm * Is the patient Alert and Oriented? Yes * How many steps to enter\exit or inside your home? HANDICAP * PCP KASH * Pharmacy [facility] [address] * Preadmission Environment Home Alone * ADLs Independent * Equipment Cane Hospital Bed Shower Chair Walker Wheelchair * List name and contact numbers for known caregivers / representatives who currently or will assist patient after discharge: AGA HUITRON ([phone]) * Verbal permission to speak to the caregivers and representatives has been obtained from the patient. N/A * Community resources currently utilized None * Additional services required to return to the preadmission environment? Yes * Can the patient safely return to the preadmission environment? No * Has this patient been hospitalized within the prior 30 days at any hospital? No External Providers External Provider: [facility] Next Contact Date: Service Request Date: Service Type: Resolution: Reviewer: Comments: Coverage Notice Reviewer: [id number] Destiny Bryan Notice Issued Date-Time: 11/10/2018 12:40 Notice Type: IM Discharge Notice Notice Delivered To: Patient Relationship to Patient: Rubber Ball Finisher Name: Delivery Method: HAND - Hand Delivered Lana Days: Prior Verbal Notification: Recipient Understood Notice: Yes Recipient Signature: Med Rec Note Co-signed by Attending: Coverage Notice Comment: Reviewer: [id number] Bryan Notice Issued Date-Time: 11/10/2018 12:40 Notice Type: Patient Choice Letter Notice Delivered To: Patient Relationship to Patient: Rubber Ball Finisher Name: Delivery Method: - Lana Days: Prior Verbal Notification: Recipient Understood Notice: Yes Recipient Signature: Yes Med Rec Note Co-signed by Attending: Coverage Notice Comment: farhan vang Last DP export: 11/12/18 12:50 p Patient Name: CY BOLES Page [phone] at 1234 All edits/amendments must be made on the electronic document DICTATION DATE: 11/25/18 1234 MANAGER BUSINESS CONTINUITY: ROSANA 11/25/18 1234 RPT#: [id number] DC DATE: STATUS: ADM IN [facility] [address] [place] [address] END OF REPORT
--- NOTE | 2018-11-25 12:53 | NUR ---
PATIENT HAS BEEN RESTING ALL DAY. NO COMPLAINTS. WILL CONTINUE TO MONITOR
[2018-11-25 14:08] VITALS: BP 103/58
[2018-11-25 16:44] VITALS: BP 109/57
--- NOTE | 2018-11-25 18:58 | NUR ---
DRESSING CHANGE COMPLETED. WET TO DRY. PATIENT WAS DISTRESSED DURING THE PACKING PROCESS. PACKING WAS SEROSANGUINEOUS. WCTM
--- NOTE | 2018-11-25 20:00 | NUR ---
RESTING IN BED NO APPAREENT DISTRESS, SEE SHIFT ASSESSMENT, CALL LIGHT IN REACH
[2018-11-25 22:53] VITALS: BP 110/54
[2018-11-26 02:05] VITALS: BP 142/87
[2018-11-26 05:24] VITALS: BP 154/84
[2018-11-26 06:11] LABS: EOSINOPHILS 14.8 % (0-7); HEMATOCRIT 27.6 % (42.0-54.0); HEMOGLOBIN 9.2 g/dL (13.5-17.5); IMMATURE GRANULOCYTES 0.4 % (0-5); LYMPHOCYTES 24.1 % (15-50); MCH 31.1 pg (26.0-34.0); MCHC 33.3 g/dL (31.0-37.0); MCV 93.2 fL (80.0-100.0); MEAN PLATELET VOLUME 8.5 fL (7.4-10.4); MONOCYTES 9.9 % (2-11); NEUTROPHILS 48.8 % (40-80); PLATELET COUNT 359 10x3/uL (130-400); RBC 2.96 10x6/uL (4.20-6.10); RDW 14.5 % (11.5-14.5)
[2018-11-26 06:20] LABS: ALBUMIN 1.7 g/dL (3.4-5.0); ALKALINE PHOSPHATASE 92 U/L (46-116); ALT (SGPT) 51 U/L (10-68); BILIRUBIN - TOTAL 0.53 mg/dL (0.2-1.3); CALC OSMOLALITY 268 mosm/kg (275-300); CALCIUM 8.5 mg/dL (8.5-10.1); CARBON DIOXIDE 37.2 mmol/L (21.0-32.0); CHLORIDE - SERUM 97 mmol/L (98-107); GLUCOSE 92 mg/dL (74-106); PROTEIN - SERUM 6.5 g/dL (6.4-8.2); SODIUM 135 mmol/L (136-145); UREA NITROGEN 11 mg/dL (7-18); eGFR NON AFRICAN AMERICAN 79 mL/min (90-120)
[2018-11-26 06:22] LABS: POTASSIUM - SERUM 4.3 mmol/L (3.5-5.1)
[2018-11-26 07:21] LABS: INR 1.67 (0.85-1.17); PROTIME 19.1 SECONDS (11.6-15.0)
--- NOTE | 2018-11-26 08:12 | NUR ---
PT IS RESTING IN BED WITH EYES CLOSED. RESPIRATIONS ARE EVEN AND UNLABORED. PT IS EASILY AROUSED WITH VERBAL STIMULATION. PT REPORTS PAIN 10/10. WILL ADDRESS. SEE EMAR. PT DENIES PRESENCE OF N/V. DRAINAGE AND SWELLING NOTED TO SCROTUM. LOMBARDO CATHETER IS DRAINING WITHOUT DIFFICULTY. PT DENIES FURTHER NEEDS AT THIS TIME. WILL CONT TO MONITOR.
[2018-11-26 08:40] VITALS: BP 147/78
--- NOTE | 2018-11-26 11:35 | MORECARE ---
CASE MANAGEMENT DISCHARGE SUMMARY PATIENT: CY BOLES UNIT: [id number] ADM DATE: 11/06/18 AGE: 68 : 51 SEX: M ROOM/BED: D.2206 AUTHOR: CHRISTIAN IRVIN PHYSICIAN: REFERRING PHYSICIAN: SULMA GREER MD DATE OF SERVICE: 11/26/18 Discharge Plan Patient Name: CY BOLES Facility: [facility]:[place] : 1950 Planned Disposition: Alf Facility Anticipated Discharge Date: Discharge Date: Expected LOS: Initial Reviewer: [email or web address] Initial Review Date: 11/06/2018 Generated: 11/26/18 12:35 pm Comments DCP- Discharge Planning Updated by [email or web address]: Laura Bryan on 11/26/18 10:[address] UPDATED CLINICAL SENT TO [facility] TO CALL ME BACK DCP- Discharge Planning Updated by [email or web address]: Laura Bryan on 11/26/18 10:[address] SAFIA WITH [facility] CALLED AND STATED THAT THEY COULD NOT ACCEPT HIM TILL FRIDAY, BUT SHE THOUGHT HE COULD GO TO A SKILLED. WILL SPEAK TO MD/WELLNESS HEALTH COACH DCP- Discharge Planning Updated by [email or web address]: Laura Bryan on 11/25/18 11:[address] [facility] DCP- Discharge Planning Updated by [id number]: Laura Bryan on 11/12/18 12:[address] PATIENT HAS BEEN ACCEPTED TO [facility] WHEN HE IS STABLE TO DC DCP- Discharge Planning Updated by [id number]: Laura Bryan on 11/10/18 12:[address] Patient Name: CY BOLES Admission Status: ER Accout number: [id number] Admission Date: 11-06-2018 : 1950 Admission Diagnosis: Attending: ZOEY, Current LOS: 4 Anticipated DC Date: Planned Disposition: Alf Facility Primary Insurance: MEDICARE A & B Discharge Planning Comments: CM met with patient to complete initial dc planning assessment. CM educated patient on the CM role and verbal consent given by patient to complete assessment. Patient lives at home by himself at home, he recently lost his . His daughter in law work from his home during the day. At discharge patient would like to go to [facility] and feels this is a safe discharge. Patient stated that he has a cane, hospital bed, shower, walker, wheelchair at home. He stated that he needs some help before he can return home. IMM served and explained. I will send a referral to [facility]. CM will continue to follow and will assist as needed with dc plans/needs. Hand Hardener: Laura Bryan DCPIA - Discharge Planning Initial Assessment Updated by [email or web address]: Laura Bryan on 11/10/18 1:43 pm * Is the patient Alert and Oriented? Yes * How many steps to enter\exit or inside your home? HANDICAP * PCP KASH * Pharmacy [facility] [address] * Preadmission Environment Home Alone * ADLs Independent * Equipment Cane Hospital Bed Shower Chair Walker Wheelchair * List name and contact numbers for known caregivers / representatives who currently or will assist patient after discharge: AGA HUITRON ([phone]) * Verbal permission to speak to the caregivers and representatives has been obtained from the patient. N/A * Community resources currently utilized None * Additional services required to return to the preadmission environment? Yes * Can the patient safely return to the preadmission environment? No * Has this patient been hospitalized within the prior 30 days at any hospital? No Coverage Notice Reviewer: [email or web address] Destiny Bryan Notice Issued Date-Time: 11/10/2018 12:40 Notice Type: IM Discharge Notice Notice Delivered To: Patient Relationship to Patient: Yard Associate Name: Delivery Method: HAND - Hand Delivered Lana Days: Prior Verbal Notification: Recipient Understood Notice: Yes Recipient Signature: Med Rec Note Co-signed by Attending: Coverage Notice Comment: Reviewer: [id number] - Laura Bryan Notice Issued Date-Time: 11/10/2018 12:40 Notice Type: Patient Choice Letter Notice Delivered To: Patient Relationship to Patient: Yard Associate Name: Delivery Method: - Lana Days: Prior Verbal Notification: Recipient Understood Notice: Yes Recipient Signature: Yes Med Rec Note Co-signed by Attending: Coverage Notice Comment: farhan vang Last DP export: 11/25/18 11:34 a Patient Name: CY BOLES Page [phone] at 1135 All edits/amendments must be made on the electronic document DICTATION DATE: 11/26/181133 STOCK REPLENISHER: ROSANA 11/26/18 1134 RPT#: [id number] DC DATE: STATUS: ADM IN [facility] [address] [place] [address] END OF REPORT
[2018-11-26 12:40] VITALS: BP 109/72
--- NOTE | 2018-11-26 14:16 | NUR ---
DRESSING CHANGED PER NURSING INSTRUCTION. PT TOLERATED WELL.
[2018-11-26 17:34] VITALS: BP 133/64
--- NOTE | 2018-11-26 20:00 | NUR ---
ALERT RESTING IN BED, REQUESTING PAIN MEDICATION, DISCUSSED ALTERNATING IV DILAUDID WITH PO NORCO TO HELP KEEP PAIN UNDER CONTROL, PT AGREED STATES I JUST HURT BAD ALL THE TIME SO DR ARRIAGA CHANGED MY DILAUDID BACK TO EVERY 4 HRS. SEE SHIFT ASSESSMENT CALL LIGHT IN REACH
[2018-11-26 20:49] VITALS: BP 141/76
[2018-11-27 04:19] LABS: BASOPHILS 1.7 % (0-2); EOSINOPHILS 12.7 % (0-7); HEMATOCRIT 28.3 % (42.0-54.0); HEMOGLOBIN 9.4 g/dL (13.5-17.5); IMMATURE GRANULOCYTES 0.4 % (0-5); LYMPHOCYTES 24.8 % (15-50); MCH 31.1 pg (26.0-34.0); MCHC 33.2 g/dL (31.0-37.0); MCV 93.7 fL (80.0-100.0); MEAN PLATELET VOLUME 8.6 fL (7.4-10.4); MONOCYTES 7.4 % (2-11); PLATELET COUNT 393 10x3/uL (130-400); RBC 3.02 10x6/uL (4.20-6.10); RDW 14.4 % (11.5-14.5); WBC 7.6 10x3/uL (4.8-10.8)
[2018-11-27 04:24] LABS: CALCIUM 8.1 mg/dL (8.5-10.1); CARBON DIOXIDE 34.6 mmol/L (21.0-32.0); CREATININE - SERUM 1.2 mg/dL (0.6-1.3); INR 1.72 (0.85-1.17); PROTIME 19.6 SECONDS (11.6-15.0)
[2018-11-27 04:27] LABS: POTASSIUM - SERUM 3.6 mmol/L (3.5-5.1)
[2018-11-27 04:59] VITALS: BP 122/72
--- NOTE | 2018-11-27 07:55 | NUR ---
PT RESTING IN BED WITH EYES CLOSED. NO ACUTE DISTRESS NOTED. OPENS EYES SPONTANEOUSLY. RATES PAIN AT THIS TIME /, BUT VOICES "ITS NOT TIME FOR ANY PAIN MEDICATIONS RIGHT NOW" IV TO RIGHT FOREARM WITH NS @ 30 ML/HR INFUSING VIA PUMP. SITE WITHOUT REDNESS OR EDEMA. F/C PATENT TO GRAVITY. PT DENIES FURTHER NEEDS AT THIS TIME. CL WITHIN REACH. ENCOURAGED TO CALL WITH NEEDS. CONTINUE POC
[2018-11-27 09:23] VITALS: BP 103/62
[2018-11-27] MEDS ORDERED: COUMADIN6 MG PO (10:54)
[2018-11-27] MEDS ORDERED: LASIX40 MG PO (10:58)
--- NOTE | 2018-11-27 11:11 | MORECARE ---
CASE MANAGEMENT DISCHARGE SUMMARY PATIENT: CY BOLES UNIT: [id number] ADM DATE: 11/06/18 AGE: 68 : 51 SEX: M ROOM/BED: D.2206 AUTHOR: ALBARO,DOC PHYSICIAN: REFERRING PHYSICIAN: SULMA GREER MD DATE OF SERVICE: 11/27/18 Discharge Plan Patient Name: CY BOLES Facility: [facility]:[place] : 1950 Planned Disposition: Halfway Facility Anticipated Discharge Date: Discharge Date: Expected LOS: Initial Reviewer: [id number] Initial Review Date: 11/06/2018 Generated: 11/27/18 12:11 pm Comments DCP- Discharge Planning Updated by [email or web address]: Laura Bryan on 11/27/18 10:[address] PATIENT WILL BE DISCHARGING TO [facility] TODAY TO A SKILLED BED. [facility] WILL BE PICKING THE PATIENT UP AT NOON TODAY. IMM SERVED AND EXPLAINED DCP- Discharge Planning Updated by [email or web address]: Laura Bryan on 11/26/18 10:[address] UPDATED CLINICAL SENT TO [facility] FOR [facility] TO CALL ME BACK DCP- Discharge Planning Updated by [email or web address]: Laura Bryan on 11/26/18 10:[address] SAIFA WITH [facility] CALLED AND STATED THAT THEY COULD NOT ACCEPT HIM TILL FRIDAY, BUT SHE THOUGHT HE COULD GO TO A SKILLED. WILL SPEAK TO MD/OFFICE MACHINERY OR EQUIPMENT INSTALLER DCP- Discharge Planning Updated by [email or web address]: Laura Bryan on 11/25/18 11:[address] REFERRAL SENT TO [facility] DCP- Discharge Planning Updated by [email or web address]: Laura Bryan on 11/12/18 12:[address] PATIENT HAS BEEN ACCEPTED TO [facility] WHEN HE IS STABLE TO DC DCP- Discharge Planning Updated by [email or web address]: Laura Bryan on 11/10/18 12:[address] Patient Name: CY BOLES Admission Status: ER Accout number: [id number] Admission Date: 11-06-2018 : 1950 Admission Diagnosis: Attending: ZOEY, Current LOS: 4 Anticipated DC Date: Planned Disposition: Halfway Facility Primary Insurance: MEDICARE A & B Discharge Planning Comments: CM met with patient to complete initial dc planning assessment. CM educated patient on the CM role and verbal consent given by patient to complete assessment. Patient lives at home by himself at home, he recently lost his . His daughter in law work from his home during the day. At discharge patient would like to go to [facility] and feels this is a safe discharge. Patient stated that he has a cane, hospital bed, shower, walker, wheelchair at home. He stated that he needs some help before he can return home. IMM served and explained. I will send a referral to [facility]. CM will continue to follow and will assist as needed with dc plans/needs. Primer Powder Blender Wet: Laura Bryan DCPIA - Discharge Planning Initial Assessment Updated by [id number]: Laura Bryan on 11/10/18 1:43 pm * Is the patient Alert and Oriented? Yes * How many steps to enter\exit or inside your home? HANDICAP * PCP KASH * Pharmacy [facility] [address] * Preadmission Environment Home Alone * ADLs Independent * Equipment Cane Hospital Bed Shower Chair Walker Wheelchair * List name and contact numbers for known caregivers / representatives who currently or will assist patient after discharge: AGA HIUTRON ([phone]) * Verbal permission to speak to the caregivers and representatives has been obtained from the patient. N/A * Community resources currently utilized None * Additional services required to return to the preadmission environment? Yes * Can the patient safely return to the preadmission environment? No * Has this patient been hospitalized within the prior 30 days at any hospital? No Coverage Notice Reviewer: [id number] Destiny Bryan Notice Issued Date-Time: 11/10/2018 12:40 Notice Type: IM Discharge Notice Notice Delivered To: Patient Relationship to Patient: Land Law Examiner Name: Delivery Method: HAND - Hand Delivered Lana Days: Prior Verbal Notification: Recipient Understood Notice: Yes Recipient Signature: Med Rec Note Co-signed by Attending: Coverage Notice Comment: Reviewer: [id number] Destiny Bryan Notice Issued Date-Time: 11/10/2018 12:40 Notice Type: Patient Choice Letter Notice Delivered To: Patient Relationship to Patient: Land Law Examiner Name: Delivery Method: - Lana Days: Prior Verbal Notification: Recipient Understood Notice: Yes Recipient Signature: Yes Med Rec Note Co-signed by Attending: Coverage Notice Comment: farhan vang Reviewer: [id number] - Laura Bryan Notice Issued Date-Time: 11/27/2018 11:02 Notice Type: IM Discharge Notice Notice Delivered To: Patient Relationship to Patient: Land Law Examiner Name: Delivery Method: HAND - Hand Delivered Lana Days: Prior Verbal Notification: Recipient Understood Notice: Yes Recipient Signature: Yes Med Rec Note Co-signed by Attending: Coverage Notice Comment: Last DP export: 11/26/18 10:35 a Patient Name: CY BOLES Page [phone] at 1111 All edits/amendments must be made on the electronic document DICTATION DATE: 11/27/18 1111 STORAGE FACILITY HOUSEKEEPER: ROSANA 11/27/18 1111 RPT#: [id number] DC DATE: STATUS: ADM IN [facility] [address] [place] [address] END OF REPORT
--- NOTE | 2018-11-27 11:30 | NUR ---
DRESSING CHANGE TO SCROTAL AREA COMPLETED. AREA UNDRESSED, SEROSANGEOUNOUS DRAINAGE NOTED TO PACKING. PACKING REMOVED, AREA CLEANED WITH SALINE. PACKED WITH SALINE SOAKED KERLEX COVERED WITH ABD PAD. PT SANTOS WELL
--- NOTE | 2018-11-27 12:10 | NUR ---
PT DISCHARGE INSTRUCTIONS GIVEN TO PT. PT VOICES UNDERSTANDING, DENIES QUESTIONS. VOICES UNDERSTANDING OF BEING ADMITTED TO [facility]. IV TO RIGHT ARM D/C'D, CATH INTACT. PT UNABLE TO SIT UP TO RIDE IN W/C, AMBULANCE CALLED FOR TRANSPORT TO NURSING FACILITY. PT BELONGINGS TAKEN WITH GROUP HOME STAFF ALONG WITH D/C PAPERWORK AND PRESCRIPTIONS.
--- NOTE | 2018-11-27 15:00 | NUR ---
AMBULANCE HERE TO TRANSFER PT TO [facility] N[facility]. PT TRANSFERRED SELF FROM BED TO STRETCHER, F/C INTACT AND DRAINING. O2 @ 3L IN PLACE.
--- NOTE | 2018-11-30 11:32 | MORECARE ---
CASE MANAGEMENT DISCHARGE SUMMARY PATIENT: CY BOLES UNIT: [id number] ADM DATE: 11/06/18 AGE: 68 : 51 SEX: M ROOM/BED: D.2206 AUTHOR: ALBARO,DOC PHYSICIAN: REFERRING PHYSICIAN: SULMA GREER MD DATE OF SERVICE: 11/30/18 Discharge Plan Patient Name: CY BOLES Facility: [facility]:[place] : 1950 Planned Disposition: Alf Facility Anticipated Discharge Date: Discharge Date: 11/27/2018 Expected LOS: Initial Reviewer: [email or web address] Initial Review Date: 11/06/2018 Generated: 11/30/18 12:31 pm Comments DCP- Discharge Planning Updated by [email or web address]: Laura Bryan on 11/27/18 10:[address] PATIENT WILL BE DISCHARGING TO [facility] TODAY TO A SKILLED BED. [facility] WILL BE PICKING THE PATIENT UP AT NOON TODAY. IMM SERVED AND EXPLAINED DCP- Discharge Planning Updated by [id number]: Laura Bryan on 11/26/18 10:[address] UPDATED CLINICAL SENT TO [facility] FOR FARSHAD TO CALL ME BACK DCP- Discharge Planning Updated by [email or web address]: Laura Bryan on 11/26/18 10:[address] SAFIA WITH [facility] CALLED AND STATED THAT THEY COULD NOT ACCEPT HIM TILL FRIDAY, BUT SHE THOUGHT HE COULD GO TO A SKILLED. WILL SPEAK TO MD/JAVA PORTAL DEVELOPER DCP- Discharge Planning Updated by [id number]: Laura Bryan on 11/25/18 11:[address] REFERRAL SENT TO [facility] DCP- Discharge Planning Updated by [id number]: Laura Bryna on 11/12/18 12:[address] PATIENT HAS BEEN ACCEPTED TO [facility] WHEN HE IS STABLE TO DC DCP- Discharge Planning Updated by [id number]: Laura Bryan on 11/10/18 12:[address] Patient Name: CY BOLES Admission Status: ER Accout number: [id number] Admission Date: 11-06-2018 : 1950 Admission Diagnosis: Attending: ZOEY, Current LOS: 4 Anticipated DC Date: Planned Disposition: Alf Facility Primary Insurance: MEDICARE A & B Discharge Planning Comments: CM met with patient to complete initial dc planning assessment. CM educated patient on the CM role and verbal consent given by patient to complete assessment. Patient lives at home by himself at home, he recently lost his . His daughter in law work from his home during the day. At discharge patient would like to go to [facility] and feels this is a safe discharge. Patient stated that he has a cane, hospital bed, shower, walker, wheelchair at home. He stated that he needs some help before he can return home. IMM served and explained. I will send a referral to [facility]. CM will continue to follow and will assist as needed with dc plans/needs. Pack Room Operator: Laura Bryan DCPIA - Discharge Planning Initial Assessment Updated by [id number]: Laura Bryan on 11/10/18 1:43 pm * Is the patient Alert and Oriented? Yes * How many steps to enter\exit or inside your home? HANDICAP * PCP KASH * Pharmacy [facility] [address] * Preadmission Environment Home Alone * ADLs Independent * Equipment Cane Hospital Bed Shower Chair Walker Wheelchair * List name and contact numbers for known caregivers / representatives who currently or will assist patient after discharge: AGA HUITRON ([phone]) * Verbal permission to speak to the caregivers and representatives has been obtained from the patient. N/A * Community resources currently utilized None * Additional services required to return to the preadmission environment? Yes * Can the patient safely return to the preadmission environment? No * Has this patient been hospitalized within the prior 30 days at any hospital? No Coverage Notice Reviewer: [id number] Destiny Bryan Notice Issued Date-Time: 11/10/2018 12:40 Notice Type: IM Discharge Notice Notice Delivered To: Patient Relationship to Patient: Flatbed Truck Driver Name: Delivery Method: HAND - Hand Delivered Lana Days: Prior Verbal Notification: Recipient Understood Notice: Yes Recipient Signature: Med Rec Note Co-signed by Attending: Coverage Notice Comment: Reviewer: [id number] Destiny Bryan Notice Issued Date-Time: 11/10/2018 12:40 Notice Type: Patient Choice Letter Notice Delivered To: Patient Relationship to Patient: Flatbed Truck Driver Name: Delivery Method: - Lana Days: Prior Verbal Notification: Recipient Understood Notice: Yes Recipient Signature: Yes Med Rec Note Co-signed by Attending: Coverage Notice Comment: farhan vang Reviewer: [id number] Destiny Bryan Notice Issued Date-Time: 11/27/2018 11:02 Notice Type: IM Discharge Notice Notice Delivered To: Patient Relationship to Patient: Flatbed Truck Driver Name: Delivery Method: HAND - Hand Delivered Lana Days: Prior Verbal Notification: Recipient Understood Notice: Yes Recipient Signature: Yes Med Rec Note Co-signed by Attending: Coverage Notice Comment: Last DP export: 11/27/18 10:11 a Patient Name: CY BOLES Page 76857 at 1132 All edits/amendments must be made on the electronic document DICTATION DATE: 11/30/18 113 MASSEUR/MASSEUSE: ROSANA 11/30/18 113 RPT#: [id number] DC DATE:11/27/18 STATUS: DIS IN [facility] [address] [place] [address] END OF REPORT
--- NOTE | 2018-12-17 13:36 | OP ---
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 PROCEDURE: Excisional debridement of scrotum. The type of tissues debrided included eschar, nonviable skin and subcutaneous tissue, granulation tissue, fibrous tissue. The dimensions of debridement, including margins, measured 15.5 cm in cephalad caudad dimension and 10.0 cm in the lateral dimension. This was a sharp debridement back to viable bleeding tissue. SURGEON: Jorge Diaz MD CASE FINISHER: None. BLOOD LOSS: Please see the anesthesia sheet. The risks, possible complications, and alternatives to the procedure were explained to the patient. He elects to proceed. OPERATIVE COURSE: The patient was conveyed to the operating room urgently on 11/18/2018. General anesthesia was induced by the anesthesia staff. The patient was placed in the lithotomy position in adjustable stirrups. The scrotum was evaluated. Through the use of double curvilinear incisions, I excised the skin and subcutaneous tissue. There were thrombosed subcutaneous vessels. I continued a piecemeal excision of the skin and subcutaneous tissue as well as some fibrous material back to viable bleeding tissue, which was cauterized. The final dimensions of the sharp debridement are listed above. The wound was then packed with 0.25 strength soaked Kerlix and then a dry dressing. The patient was then extubated and conveyed to the post-anesthesia care unit where he was in stable condition. TRANSINT:[id number] Voice Confirmation ID: [id number] DOCUMENT ID: [id number] JORGE DIAZ MD at 1336 CC: [id number] DICTATION DATE: 12/16/181826 RAILROAD HAND: 12/17/18 0501 DIS IN 11/27/18 [place] [id number] [place] [id number]
--- NOTE | 2018-12-17 13:36 | OP ---
PATIENT NAME: CY BOLES MEDICAL RECORD: [id number] :52 LOCATION:D.[facility] ADMISSION DATE:11/06/18 SURGEON: JORGE DIAZ MD DATE OF OPERATION: 11/20/2018 PREOPERATIVE DIAGNOSIS: Emma gangrene. POSTOPERATIVE DIAGNOSES: Emma gangrene with additional necrotic material that required excision. PROCEDURE: Excisional debridement of scrotum with packing of the additional material that was sharply excised, measured 4 x 2.5 cm. The entire excised defect now is 16.5 x 10.8 cm. The debrided tissues included skin and subcutaneous tissue as well as some nonviable fibrous material. SURGEON: Jorge Diaz MD PIGMENT PUSHER: None. BLOOD LOSS: Minimal. ANESTHESIA: General. COMPLICATIONS: None. The risks, possible complications and alternatives to the procedure were explained to the patient. He elects to proceed. OPERATIVE COURSE: The patient was conveyed the operating room electively on 11/20/2018. This is a second look type of procedure. General anesthesia was induced by the anesthesia staff. The patient was positioned in the lithotomy position. The scrotum and perineum was sterilely prepped and draped. I identified some nonviable material which was excised with the scalpel. I excised back to bleeding healthy tissue. The types of tissues debrided are listed above as well as the dimensions. The wound was then packed with saline soaked Kerlix and then a sterile dry dressing. The patient was then extubated and conveyed back to the post-anesthesia care unit where he was in stable condition. TRANSINT:[id number] Voice Confirmation ID: [id number] DOCUMENT ID: [id number] JORGE DIAZ MD at 1336 CC: [id number] DICTATION DATE: 12/16/18 1833 MENTAL HEALTH PRACTITIONER: 12/17/18 0518 DIS IN 11/27/18 [address] [place] [address]
== END 2018-11-27 15:00 | DRG 854 ==
LOC: D.ER 23:23 → D.MS 11-06 00:47 → D.EDHOLD 11-06 00:47 → D.MS 11-06 01:07
PROVIDERS: Emergency Medicine; Family Medicine; Internal Medicine Nephrology; Student in an Organized Health Care Education/Training Program; Surgery; Urology; ADMIT Family Medicine; ATTEND Family Medicine
PROC: 0VJ80ZZ Inspection of Scrotum and Tunica Vaginalis, Open Approach (ICD-10-PCS; principal; 2018-11-06 16:20)
PROC: 0JBB0ZZ Excision of Perineum Subcutaneous Tissue and Fascia, Open Approach (ICD-10-PCS; 2018-11-18)
DX: A41.9 Sepsis, unspecified organism (principal); N17.9 Acute kidney failure, unspecified; Z68.41 Body mass index [BMI] 40.0-44.9, adult; N39.0 Urinary tract infection, site not specified; N49.3 Fournier gangrene; N49.2 Inflammatory disorders of scrotum; E86.0 Dehydration; I48.2 Chronic atrial fibrillation; Z79.01 Long term (current) use of anticoagulants; I10 Essential (primary) hypertension; E66.01 Morbid (severe) obesity due to excess calories

== ENCOUNTER 2019-12-13 15:09 | Inpatient (IN) | payer MEDICARE, OTHER ==
[~2019-12-13] VITALS: Ht 190.5 cm; Wt 167.8 kg
[~2019-12-13 15:09] MED LIST changes: +COUMADIN6 MG PO; +LASIX40 MG PO
[2019-12-13] MEDS ORDERED: ALEVE220 MG PO (15:15)
[2019-12-13 17:22] LABS: HEMATOCRIT 48.4 % (42.0-54.0); HEMOGLOBIN 15.6 g/dL (13.5-17.5); LYMPHOCYTES 21.1 % (15-50); MCH 30.8 pg (26.0-34.0); MCHC 32.2 g/dL (31.0-37.0); MCV 95.5 fL (80.0-100.0); MEAN PLATELET VOLUME 8.3 fL (7.4-10.4); NEUTROPHILS 64.1 % (40-80); RBC 5.07 10x6/uL (4.20-6.10); RDW 14.5 % (11.5-14.5); WBC 7.5 10x3/uL (4.8-10.8)
[2019-12-13 17:25] LABS: PLATELET COUNT 217 10x3/uL (130-400)
[2019-12-13 17:37] LABS: CALCIUM 8.7 mg/dL (8.5-10.1); CARBON DIOXIDE 29.9 mmol/L (21.0-32.0); CREATININE - SERUM 1.3 mg/dL (0.6-1.3); POTASSIUM - SERUM 4.9 mmol/L (3.5-5.1)
[2019-12-13 17:43] LABS: ALBUMIN 3.1 g/dL (3.4-5.0); BILIRUBIN - TOTAL 1.04 mg/dL (0.2-1.3); PROTEIN - SERUM 7.5 g/dL (6.4-8.2)
[2019-12-13 19:47] LABS: BILIRUBIN NEGATIVE (NEGATIVE); GLUCOSE NEGATIVE (NEGATIVE); KETONE NEGATIVE (NEGATIVE); NITRITE NEGATIVE (NEGATIVE); UROBILINOGEN NORMAL (NORMAL)
[2019-12-13 20:14] VITALS: BP 134/86
[2019-12-13 20:27] LABS: INR 2.6 (0.85-1.17); PROTIME 27.4 SECONDS (11.6-15.0)
--- NOTE | 2019-12-13 21:00 | NUR ---
GAVE TURKEY SANDWICH AND ICE WATER FOR HS SNACK.
[2019-12-13 21:07] VITALS: BP 186/96; BMI 46.3
--- NOTE | 2019-12-13 21:10 | NUR ---
PT ARRIVED ON UNIT VIA STRETCHER AT 2028 , ESCORTED BY ER NURSE. POSITIONED IN BED FOR COMFORT. STATED IV VANC PER ORDER. GAVE SCHEDULED PEPCID AND PRN CLONIDINE FOR ELEVAED BLOOD PRESSURE OF 186/96 ON ARRIVAL. APPLIED NYSTAIN POWDER TO INGUINAL YEAST / REDNESS.
--- NOTE | 2019-12-13 21:23 | NUR ---
ADMISSION ASSESSMENT AND HISTORY COMPLETE.
[2019-12-14 00:10] VITALS: BP 150/99
[2019-12-14] MEDS ORDERED: COLACE100 MG PO (02:22)
[2019-12-14 04:00] VITALS: BP 148/71; BP 150/75
[2019-12-14 05:25] LABS: APTT 47.5 SECONDS (22.8-39.4); INR 2.08 (0.85-1.17); PROTIME 23.1 SECONDS (11.6-15.0)
[2019-12-14 05:43] LABS: HEMATOCRIT 48.7 % (42.0-54.0); HEMOGLOBIN 15.6 g/dL (13.5-17.5); MCH 30.9 pg (26.0-34.0); MCV 96.4 fL (80.0-100.0); MEAN PLATELET VOLUME 8.8 fL (7.4-10.4); NEUTROPHILS 77.5 % (40-80); PLATELET COUNT 211 10x3/uL (130-400); RBC 5.05 10x6/uL (4.20-6.10); RDW 15.1 % (11.5-14.5)
[2019-12-14 05:49] LABS: ANION GAP 14.2 mmol/L (8-16); CALCIUM 8.2 mg/dL (8.5-10.1); CARBON DIOXIDE 26.2 mmol/L (21.0-32.0); CREATININE - SERUM 1.1 mg/dL (0.6-1.3); PHOSPHOROUS 3.5 mg/dL (2.5-4.9); POTASSIUM - SERUM 5.4 mmol/L (3.5-5.1)
--- NOTE | 2019-12-14 07:42 | NUR ---
PT AWAKE AND SITTING UP IN BED, PT WAS ADMINISTERED PRN MEDICATION AT 7 AM AND STATED PAIN IS EASING A LITTLE BUT STILL THERE, PT HAS BILATERAL LOWER EDEMA MORE SO IN RT FOOT THAN LEFT. PEDAL PULSES ARE FAINT. PT HAS DISCOLORATION OF SKIN ON BOTH LOWER EXTREMETIES FROM MID RAWLS TO FEET. PT STATED HAS BEEN LIKE THIS FOR SEVERAL WEEKS, ITCHES AND SOMETIMES HE HAS NUMBNESS. ASKED ME TO GET A CCREAM FOR HIS LEGS TO HELP CLEAR IT UP, EXPLAINED TO PT THAT I WOULD PREFER WE WAIT FOR NURSE PRACTITIONER TO MAKE HER ROUNDS AND HAVE HER TAKE A LOOK AT LOWER EXTREMETIES AND HAVE SOMETHING ORDERED TO APPLY TO LEGS. PT THEN ASKED FOR SOME CREAM FOR SCROTUM AREA WHICH IS ALSO RED AND INFLAMMED, PT HAS NYSTATIN CREAM FOR YEAST IN FOLDS. APPLIED BUDROS CREAM FOR NOW TO AREA AND WILL SEE IF PT CAN HAVE SOME CALMOSEPTINE FOR AREA. PT WAS SATISFIED WITH APPLICATION OF CREAM TO THE AREA, NO OTHER NEEDS VOICED AT THIS TIME. IV IN LT AC, CDI, LUNGS CTA, URINAL AT BEDSIDE, CONTINUE WITH PLAN OF CARE
[2019-12-14 09:03] VITALS: BP 132/75
--- NOTE | 2019-12-14 10:53 | NUR ---
I have reviewed this patient and I concur with the Shift Assessment completed by the Licensed Practical Nurse today this shift.
[2019-12-14 12:33] VITALS: BMI 46.2
[2019-12-14 12:48] VITALS: BP 153/69
--- NOTE | 2019-12-14 14:26 | NUR ---
Redness and inflammation noted to scrotum. Also yeasty rash. Wound care monitoring.
--- NOTE | 2019-12-14 14:47 | MORECARE ---
CASE MANAGEMENT DISCHARGE SUMMARY PATIENT: CY BOLES UNIT: [id number] ADM DATE: 12/13/19 AGE: 69 : 51 SEX: M ROOM/BED: D.2236 AUTHOR: CHRISTIAN IRVIN PHYSICIAN: REFERRING PHYSICIAN: AMELIA RAYMUNDO MD DATE OF SERVICE: 12/14/19 Discharge Plan Patient Name: CY BOLES Facility: [facility]:[place] : 1950 Planned Disposition: Anticipated Discharge Date: Discharge Date: Expected LOS: Initial Reviewer: [email or web address] Initial Review Date: 12/13/2019 Generated: 12/14/19 3:47 pm Comments DCP- Discharge Planning Updated by [email or web address]: Ifrah Palmer on 12/14/19 1:[address] Patient Name: CY BOLES Admission Status: ER Accout number: [id number] Admission Date: 12-13-2019 : 1950 Admission Diagnosis: Attending: AMELIA RAYMUNDO Current LOS: 1 Anticipated DC Date: Planned Disposition: Primary Insurance: MEDICARE A & B Discharge Planning Comments: CM met with patient at bedside after explaining CM role and obtaining verbal consent. CM discussed availability / needs of home health, REHAB and medical equipment. STATES DOES NOT WANT HH OR REHAB. IF IT LOOKS LIKE HE WILL NEED IT AT DISCHARGE I WILL SEND REFERRALS IF HE WILL AGREE. CM TO FOLLOW AND ASSIST. Mlt: Ifrah Palmer DCPIA - Discharge Planning Initial Assessment Updated by [email or web address]: Ifrah Palmer on 12/14/19 2:39 pm * Is the patient Alert and Oriented? Yes * PCP KASH * Pharmacy [facility] * Preadmission Environment Home Alone * ADLs Independent * Other Equipment HAS WALKER AND WC IF NEEDED. * List name and contact numbers for known caregivers / representatives who currently or will assist patient after discharge: AGA, [phone] * Community resources currently utilized None * Has this patient been hospitalized within the prior 30 days at any hospital? No Patient Name: CY BOLES Page [id number] at 1440 All edits/amendments must be made on the electronic document DICTATION DATE: 12/14/191446 AIRCRAFT CLEANER: DM 12/14/191446 RPT#: [id number] DC DATE: STATUS: ADM IN [facility] [address] [place] [address] END OF REPORT
--- NOTE | 2019-12-14 15:27 | NUR ---
PT ON CL IN REGARDS TO "SOMETHING FOR HIS LEGS" PT WANTED ME TO "LATHER" CREAM ON LEGS, EXPLAINED TO PT THAT I AM WAITING ON ORDERS FOR CREAM OR TREATMENT. PT STATED NURSE PRACTITIONER TOLD HIM SHE WOULD PUT IN AN ORDER, AFTER REVIEWING ORDERS AND NURSING MESSAGE FOUND A NURSE MESSAGE TO APPLU UNNA BOOTS TO PT FROM TOES TO JUST BELOW KNEE. CALLED WOUND CARE NURSE LESLY RN AND DISCUSSED MESSAGE FOR ORDERS. PER LESLY, SHE WILL PLACE ORDERS FOR UNNA BOOTS PER JOYCELYN AIRLINE STATION AGENT. NO OTHER NEEDS AT THIS TIME. CONTINUE WITH PLAN OF CARE
[2019-12-14 16:13] VITALS: Ht 190.5 cm; Wt 167.8 kg
--- NOTE | 2019-12-14 16:36 | NUR ---
BILATERAL UNNA BOOTS APPLIED PER ORDER. PT TOLERATED WELL. INSTRUCTED TO NOTIFY NURSE IF: EXTREME PAIN BEGINS IN EITHER LEG, SHORTNESS OF BREATH OR EXCESSIVE SWELLING AT TOES OR KNEES. IN THESE CASES UNNA BOOTS WILL BE CUT OFF. PT VOICED UNDERSTANDING. WOUND CARE CONTINUES TO FOLLOW.
[2019-12-14 17:39] VITALS: BP 129/65
--- NOTE | 2019-12-14 20:30 | NUR ---
PT SITTING UP IN BED WITHOUT DISTRESS, AOX4. STATES PAIN 03/13. WENT TO GIVE MORPHINE, IV INFILTRATED. REMOVED LEFT AC IV WITH CATHETER INTACT. RESITED 22G IV X2 ATTEMPTS TO RIGHT HAND. GAVE MORPHINE AND ZOFRAN. UNNA BOOTS TO BILAT LEGS INTACT. SCROTUM RED, SWOLLEN. +2 PITTING EDEMA TO ALL EXT. PT DENIES NEEDS AT THIS TIME. CL IN REACH, WILL CTM
[2019-12-14 21:06] VITALS: BP 140/85
[2019-12-15 00:55] VITALS: BP 153/92
[2019-12-15 05:43] LABS: BASOPHILS 0.3 % (0-2); EOSINOPHILS 6.9 % (0-7); HEMATOCRIT 46.2 % (42.0-54.0); HEMOGLOBIN 14.5 g/dL (13.5-17.5); IMMATURE GRANULOCYTES 0.3 % (0-5); LYMPHOCYTES 20.5 % (15-50); MCHC 31.4 g/dL (31.0-37.0); MEAN PLATELET VOLUME 9.2 fL (7.4-10.4); MONOCYTES 10.1 % (2-11); NEUTROPHILS 61.9 % (40-80); PLATELET COUNT 176 10x3/uL (130-400); RBC 4.67 10x6/uL (4.20-6.10); RDW 14.6 % (11.5-14.5)
[2019-12-15 06:10] VITALS: BP 176/87
[2019-12-15 06:13] LABS: MCV 98.9 fL (80.0-100.0); WBC 5.8 10x3/uL (4.8-10.8)
[2019-12-15 06:24] LABS: ANION GAP 11.6 mmol/L (8-16); CALCIUM 8.2 mg/dL (8.5-10.1); CARBON DIOXIDE 25.9 mmol/L (21.0-32.0); MAGNESIUM - SERUM 1.9 mg/dL (1.8-2.4); PHOSPHOROUS 3.1 mg/dL (2.5-4.9)
[2019-12-15 06:31] LABS: CREATININE - SERUM 1.4 mg/dL (0.6-1.3); POTASSIUM - SERUM 4.5 mmol/L (3.5-5.1)
--- NOTE | 2019-12-15 07:05 | NUR ---
ALERT AND ORIENTED, RESTING IN BED WITH EYES OPEN. NO C/O PAIN. NO S/S OF ACUTE DISTRESS NOTED. BLIND IN LEFT EYE. GENERALIZED EDEMA 2+, BUE AND BLE. SCROTUM RED AND SWOLLEN. USES URINAL. UP WITH ASSIST. DEB BOOTS TO BLE. IV TO RIGHT HAND, NS INFUSING @ KVO. SITE PATENT WITHOUT REDNESS OR SWELLING. ON TELEMETRY 80 SR. STANDBY ASSIST WITH WALKER. DENIES ANY NEEDS AT THIS TIME. CALL LIGHT IN REACH. WILL CONTINUE TO MONITOR.
[2019-12-15 08:00] VITALS: BP 165/89
[2019-12-15 10:02] LABS: INR 1.34 (0.85-1.17); PROTIME 16.5 SECONDS (11.6-15.0)
[2019-12-15 12:00] VITALS: BP 147/84
[2019-12-15 16:00] VITALS: BP 145/83
--- NOTE | 2019-12-15 18:22 | NUR ---
ALERT AND ORIENTED, RESTING IN BED WATCHING TV. NO C/O PAIN. NO S/S OF ACUTE DISTRESS NOTED. DENIES ANY NEEDS AT THIS TIME. CALL LIGHT IN REACH. WILL CONTINUE TO MONITOR.
--- NOTE | 2019-12-15 20:00 | NUR ---
PT SITTING UP IN BED WITHOUT DISTRESS, AOX4. STATES PAIN 03/13. GAVE MORPHINE ORDERED. DENIES OTHER NEEDS. CL IN REACH, WILL CTM
[2019-12-15 21:08] VITALS: BP 174/101
[2019-12-16] VITALS (7 sets, daily range): BP systolic 123–208; BP diastolic 71–106
[2019-12-16 05:56] LABS: BASOPHILS 0.5 % (0-2); EOSINOPHILS 5.5 % (0-7); HEMATOCRIT 45.8 % (42.0-54.0); HEMOGLOBIN 14.6 g/dL (13.5-17.5); IMMATURE GRANULOCYTES 0.3 % (0-5); LYMPHOCYTES 18.6 % (15-50); MCH 31.2 pg (26.0-34.0); MCHC 31.9 g/dL (31.0-37.0); MCV 97.9 fL (80.0-100.0); MEAN PLATELET VOLUME 8.8 fL (7.4-10.4); MONOCYTES 11.5 % (2-11); NEUTROPHILS 63.6 % (40-80); PLATELET COUNT 177 10x3/uL (130-400); RBC 4.68 10x6/uL (4.20-6.10); RDW 14.4 % (11.5-14.5); WBC 6.3 10x3/uL (4.8-10.8)
[2019-12-16 06:07] LABS: ANION GAP 9.8 mmol/L (8-16); CALCIUM 8.4 mg/dL (8.5-10.1); CARBON DIOXIDE 27.5 mmol/L (21.0-32.0); CREATININE - SERUM 1.3 mg/dL (0.6-1.3); MAGNESIUM - SERUM 2.1 mg/dL (1.8-2.4); PHOSPHOROUS 3.2 mg/dL (2.5-4.9); POTASSIUM - SERUM 4.3 mmol/L (3.5-5.1)
[2019-12-16 06:55] LABS: INR 1.18 (0.85-1.17); PROTIME 14.9 SECONDS (11.6-15.0)
--- NOTE | 2019-12-16 06:55 | NUR ---
RESTING IN BED WITH EYES CLOSED. RESPIRATIONS EVEN AND UNLABORED. NO S/S OF ACUTE DISTRESS NOTED. GENERALIZED EDEMA PRESENT TO BUE AND BLE. SCROTUM RED. UP WITH ASSIST. IV TO RIGHT HAND, NS INFUSING @ KVO. SITE PATENT WITHOUT REDNESS OR SWELLING. CALL LIGHT IN REACH. WILL CONTINUE TO MONITOR.
--- NOTE | 2019-12-16 14:24 | NUR ---
IV TO RIGHT HAND INFILTRATED. DISCONTINUED IV, CATHETER TIP INTACT. RESITED IV TO RIGHT AC, 22 GA X1 STICK. BLOOD RETURN VISIBLE.
--- NOTE | 2019-12-16 16:19 | NUR ---
UNNA BOOT CHANGED PER ORDER.
--- NOTE | 2019-12-16 17:56 | NUR ---
ALERT AND ORIENTED, RESTING IN BED WITH EYES OPEN. NO C/O PAIN. NO S/S OF ACUTE DISTRESS NOTED. DENIES ANY NEEDS AT THIS TIME. CALL LIGHT IN REACH. WILL CONTINUE TO MONITOR.
--- NOTE | 2019-12-16 18:45 | NUR ---
I have reviewed this patient and I concur with the Shift Assessment completed by the Licensed Practical Nurse today this shift.
--- NOTE | 2019-12-16 19:30 | NUR ---
PT SITING UP IN BED WITHOUT DISTRESS, AOX4. DENIES NEEDS AT THIS TIME, CL IN REACH, BETHANY HARMAN
[2019-12-17] VITALS: BP 183/91
[2019-12-17 04:00] VITALS: BP 191/110
[2019-12-17 05:31] LABS: BASOPHILS 0.5 % (0-2); EOSINOPHILS 5.8 % (0-7); HEMATOCRIT 47.4 % (42.0-54.0); HEMOGLOBIN 14.9 g/dL (13.5-17.5); IMMATURE GRANULOCYTES 0.5 % (0-5); LYMPHOCYTES 15.9 % (15-50); MCH 30.6 pg (26.0-34.0); MCHC 31.4 g/dL (31.0-37.0); MCV 97.3 fL (80.0-100.0); MEAN PLATELET VOLUME 9.4 fL (7.4-10.4); MONOCYTES 13.3 % (2-11); PLATELET COUNT 194 10x3/uL (130-400); RBC 4.87 10x6/uL (4.20-6.10); RDW 14.2 % (11.5-14.5)
[2019-12-17 05:40] LABS: INR 1.11 (0.85-1.17); PROTIME 14.3 SECONDS (11.6-15.0)
[2019-12-17 05:47] LABS: ANION GAP 10.1 mmol/L (8-16); CALCIUM 8.4 mg/dL (8.5-10.1); CARBON DIOXIDE 28.9 mmol/L (21.0-32.0); CREATININE - SERUM 1.4 mg/dL (0.6-1.3); MAGNESIUM - SERUM 1.9 mg/dL (1.8-2.4); PHOSPHOROUS 3.5 mg/dL (2.5-4.9)
[2019-12-17 08:00] VITALS: BP 182/106
--- NOTE | 2019-12-17 09:00 | NUR ---
ALERT AND ORIENTED WITH ERRYTHEMA AND EDEMA NOTED TO SCROTUM WITH NYSTATIN APPLIED. CLINIDINE GIVEN PRN FOR HTN. UNABOOTS NOTED TO BLE WITH 1+ NOTED TO BUE. LUNGS CTA AND TELEMETRY INTACT AND CONT. A-FIB. LOVENOX GIVEN FOR EMBOLISM PRECAUTIONS.IV TO RIGHT A/C WITH NO S/S OF INFECTION/INFILTATION. ENCOU RAGED TO USE CALL LIGHT FOR ASSSIT.
[2019-12-17 12:00] VITALS: BP 155/89
[2019-12-17] MEDS ORDERED: NYSTATIN1 PWD TOPICAL (12:20)
[2019-12-17] MEDS ORDERED: K-DUR20 MEQ PO (12:22)
[2019-12-17] MEDS ORDERED: LASIX40 MG PO (12:22)
[2019-12-17] MEDS ORDERED: HYDROCODON-ACE1 EA10 PO (12:24)
[2019-12-17] MEDS ORDERED: KEFLEX500 MG PO (12:24)
--- NOTE | 2019-12-17 12:49 | MORECARE ---
CASE MANAGEMENT DISCHARGE SUMMARY PATIENT: CY BOLES UNIT: [id number] ADM DATE: 12/13/19 AGE: 69 : 51 SEX: M ROOM/BED: D.2236 AUTHOR: ALBARO,DOC PHYSICIAN: REFERRING PHYSICIAN: AMELIA RAYMUNDO MD DATE OF SERVICE: 12/17/19 Discharge Plan Patient Name: CY BOLES Facility: [facility]:[place] : 1950 Planned Disposition: Anticipated Discharge Date: Discharge Date: Expected LOS: Initial Reviewer: [email or web address] Initial Review Date: 12/13/2019 Generated: 12/17/19 1:48 pm DCP- Discharge Planning Updated by [email or web address]: Ifrah Palmer on 12/14/19 1:[address] Patient Name: CY BOLES Admission Status: ER Accout number: [id number] Admission Date: 12-13-2019 : 1950 Admission Diagnosis: Attending: AMELIA RAYMUNDO Current LOS: 1 Anticipated DC Date: Planned Disposition: Primary Insurance: MEDICARE A & B Discharge Planning Comments: CM met with patient at bedside after explaining CM role and obtaining verbal consent. CM discussed availability / needs of home health, REHAB and medical equipment. STATES DOES NOT WANT HH OR REHAB. IF IT LOOKS LIKE HE WILL NEED IT AT DISCHARGE I WILL SEND REFERRALS IF HE WILL AGREE. CM TO FOLLOW AND ASSIST. Scaling Machine Operator: Ifrah Palmer DCPIA - Discharge Planning Initial Assessment Updated by [id number]: Ifrah Palmer on 12/14/19 2:39 pm * Is the patient Alert and Oriented? Yes * PCP KASH * Pharmacy [facility] * Preadmission Environment Home Alone * ADLs Independent * Other Equipment HAS WALKER AND WC IF NEEDED. * List name and contact numbers for known caregivers / representatives who currently or will assist patient after discharge: AGA [phone] * Community resources currently utilized None * Has this patient been hospitalized within the prior 30 days at any hospital? No External Providers External Provider: [facility] Contact Date: Service Request Date: Service Type: Resolution: Reviewer: Comments: Coverage Notice Reviewer: [id number] - Ifrah Palmer Notice Issued Date-Time: 12/17/2019 12:45 Notice Type: IM Discharge Notice Notice Delivered To: Patient Relationship to Patient: Seater Grinder Name: Delivery Method: HAND - Hand Delivered Lana Days: Prior Verbal Notification: Recipient Understood Notice: Yes Recipient Signature: Yes Med Rec Note Co-signed by Attending: Coverage Notice Comment: Reviewer: [email or web address] Destiny Palmer Notice Issued Date-Time: 12/17/2019 12:45 Notice Type: Patient Choice Letter Notice Delivered To: Patient Relationship to Patient: Seater Grinder Name: Delivery Method: HAND - Hand Delivered Lana Days: Prior Verbal Notification: Recipient Understood Notice: Yes Recipient Signature: Yes Med Rec Note Co-signed by Attending: Coverage Notice Comment: Last DP export: 12/14/19 1:47 p Patient Name: CY BOLES Page 71491 at 1249 All edits/amendments must be made on the electronic document DICTATION DATE: 12/17/191247 FIRM ADMINISTRATOR: ROSANA 12/17/19 1248 RPT#: [id number] DC DATE: STATUS: ADM IN [facility] [address] [place] [address] END OF REPORT
--- NOTE | 2019-12-17 13:02 | MORECARE ---
CASE MANAGEMENT DISCHARGE SUMMARY PATIENT: CY BOLES UNIT: [id number] ADM DATE: 12/13/19 AGE: 69 : 51 SEX: M ROOM/BED: D.2236 AUTHOR: ALBARO,DOC PHYSICIAN: REFERRING PHYSICIAN: AMELIA RAYMUNDO MD DATE OF SERVICE: 12/17/19 Discharge Plan Patient Name: CY BOLES Facility: [facility]:[place] : 1950 Planned Disposition: Anticipated Discharge Date: Discharge Date: Expected LOS: Initial Reviewer: [email or web address] Initial Review Date: 12/13/2019 Generated: 12/17/19 2:02 pm Comments DCP- Discharge Planning Updated by [id number]: Ifrah Palmer on 12/17/19 11:[address] Patient Name: CY BOLES Admission Status: ER Accout number: [id number] Admission Date: 12-13-2019 : 1950 Admission Diagnosis:RASH AND OTHER NONSPECIFIC SKIN ERUPTION Attending: AMELIA RAYMUNDO Current LOS: 4 Anticipated DC Date: Planned Disposition: Primary Insurance: MEDICARE A & B Discharge Planning Comments: PATIENT STATES CURRENT WITH [facility]. [place] SIGNED TO RESUME [facility] AND IMM SIGNED. FAXING OVER CLINICALS TO [facility] NOW. CM TO FOLLOW AND ASSIST. Prison Psychiatrist: Ifrah Palmer DCP- Discharge Planning Updated by [id number]: Ifrah Palmer on 12/14/19 1:[address] Patient Name: CY BOLES Admission Status: ER Accout number: [id number] Admission Date: 12-13-2019 : 1950 Admission Diagnosis: Attending: AMELIA RAYMUNDO Current LOS: 1 Anticipated DC Date: Planned Disposition: Primary Insurance: MEDICARE A & B Discharge Planning Comments: CM met with patient at bedside after explaining CM role and obtaining verbal consent. CM discussed availability / needs of home health, REHAB and medical equipment. STATES DOES NOT WANT HH OR REHAB. IF IT LOOKS LIKE HE WILL NEED IT AT DISCHARGE I WILL SEND REFERRALS IF HE WILL AGREE. CM TO FOLLOW AND ASSIST. Prison Psychiatrist: Ifrah Palmer DCPIA - Discharge Planning Initial Assessment Updated by [email or web address]: Ifrah Palmer on 12/14/19 2:39 pm * Is the patient Alert and Oriented? Yes * PCP KASH * Pharmacy [facility] * Preadmission Environment Home Alone * ADLs Independent * Other Equipment HAS WALKER AND WC IF NEEDED. * List name and contact numbers for known caregivers / representatives who currently or will assist patient after discharge: Janis [phone] * Community resources currently utilized None * Has this patient been hospitalized within the prior 30 days at any hospital? No Coverage Notice Reviewer: [id number] Palmer Notice Issued Date-Time: 12/17/2019 12:45 Notice Type: IM Discharge Notice Notice Delivered To: Patient Relationship to Patient: Plumber Maintenance Name: Delivery Method: HAND - Hand Delivered Lana Days: Prior Verbal Notification: Recipient Understood Notice: Yes Recipient Signature: Yes Med Rec Note Co-signed by Attending: Coverage Notice Comment: Reviewer: LOGAN Palmer Notice Issued Date-Time: 12/17/2019 12:45 Notice Type: Patient Choice Letter Notice Delivered To: Patient Relationship to Patient: Plumber Maintenance Name: Delivery Method: HAND - Hand Delivered Lana Days: Prior Verbal Notification: Recipient Understood Notice: Yes Recipient Signature: Yes Med Rec Note Co-signed by Attending: Coverage Notice Comment: Last DP export: 12/17/19 11:49 a Patient Name: CY BOLES Page 42565 at 1302 All edits/amendments must be made on the electronic document DICTATION DATE: 12/17/19 1302 JIVE DEVELOPER: ROSANA 12/17/19 1302 RPT#: [id number] DC DATE: STATUS: ADM IN [facility] [address] [place] [address] END OF REPORT
[2019-12-17 16:00] VITALS: BP 158/90
--- NOTE | 2019-12-17 16:15 | MORECARE ---
CASE MANAGEMENT DISCHARGE SUMMARY PATIENT: CY BOLES UNIT: [id number] ADM DATE: 12/13/19 AGE: 69 : 51 SEX: M ROOM/BED: D.2236 AUTHOR: ALBARO,DOC PHYSICIAN: REFERRING PHYSICIAN: AMELIA RAYMUNDO MD DATE OF SERVICE: 12/17/19 Discharge Plan Patient Name: CY BOLES Facility: [facility]:[place] : 1950 Planned Disposition: Anticipated Discharge Date: Discharge Date: Expected LOS: Initial Reviewer: [email or web address] Initial Review Date: 12/13/2019 Generated: 12/17/19 5:15 pm Comments DCP- Discharge Planning Updated by [id number]: Ifrah Palmer on 12/17/19 3:[address] Patient Name: CY BOLES Admission Status: ER Accout number: [id number] Admission Date: 12-13-2019 : 1950 Admission Diagnosis:RASH AND OTHER NONSPECIFIC SKIN ERUPTION Attending: AMELIA RAYMUNDO Current LOS: 4 Anticipated DC Date: Planned Disposition: Primary Insurance: MEDICARE A & B Discharge Planning Comments: PATIENT STATES CURRENT WITH [facility]. HOLLY SIGNED TO RESUME [facility] AND IMM SIGNED. FAXING OVER CLINICALS TO [facility] NOW. CM TO FOLLOW AND ASSIST. Concrete Paving Supervisor: Ifrah Palmer Appended by Ifrah Palmer on 12/17/2019 16:12 CDT: [facility] WILL SEE FRIDAY. DCP- Discharge Planning Updated by [id number]: Ifrah Palmer on 12/14/19 1:[address] Patient Name: CY BOLES Admission Status: ER Accout number: [id number] Admission Date: 12-13-2019 : 1950 Admission Diagnosis: Attending: AMELIA RAYMUNDO Current LOS: 1 Anticipated DC Date: Planned Disposition: Primary Insurance: MEDICARE A & B Discharge Planning Comments: CM met with patient at bedside after explaining CM role and obtaining verbal consent. CM discussed availability / needs of home health, REHAB and medical equipment. STATES DOES NOT WANT HH OR REHAB. IF IT LOOKS LIKE HE WILL NEED IT AT DISCHARGE I WILL SEND REFERRALS IF HE WILL AGREE. CM TO FOLLOW AND ASSIST. Concrete Paving Supervisor: Ifrah Palmer DCPIA - Discharge Planning Initial Assessment Updated by [email or web address]: Ifrah Palmer on 12/14/19 2:39 pm * Is the patient Alert and Oriented? Yes * PCP KASH * Pharmacy [facility] * Preadmission Environment Home Alone * ADLs Independent * Other Equipment HAS WALKER AND WC IF NEEDED. * List name and contact numbers for known caregivers / representatives who currently or will assist patient after discharge: AGA [phone] * Community resources currently utilized None * Has this patient been hospitalized within the prior 30 days at any hospital? No Coverage Notice Reviewer: [id number] Palmer Notice Issued Date-Time: 12/17/2019 12:45 Notice Type: IM Discharge Notice Notice Delivered To: Patient Relationship to Patient: Commercial Pest Control Technician Name: Delivery Method: HAND - Hand Delivered Lana Days: Prior Verbal Notification: Recipient Understood Notice: Yes Recipient Signature: Yes Med Rec Note Co-signed by Attending: Coverage Notice Comment: Reviewer: [id number] Palmer Notice Issued Date-Time: 12/17/2019 12:45 Notice Type: Patient Choice Letter Notice Delivered To: Patient Relationship to Patient: Commercial Pest Control Technician Name: Delivery Method: HAND - Hand Delivered Lana Days: Prior Verbal Notification: Recipient Understood Notice: Yes Recipient Signature: Yes Med Rec Note Co-signed by Attending: Coverage Notice Comment: Last DP export: 12/17/19 12:02 p Patient Name: CY BOLES Page 75407 at 1615 All edits/amendments must be made on the electronic document DICTATION DATE: 12/17/191614 BAKER BREAD: ROSANA 12/17/191614 RPT#: [id number] [place] DATE: STATUS: ADM IN [facility] [address] [place] [address] END OF REPORT
--- NOTE | 2019-12-17 17:55 | NUR ---
IV DISCONTINUED AND VERBALIZED UNDERSTANDING OF DISCHARGE INSTRUCTIONS WITH RX FOR [place] GIVEN TO PATIENT. ASSISTED IN DRESSING AND DISCHARGED UNDER THE CARE OF FAMILY. STABLE AT TIME OF DISCHARGE.
--- NOTE | 2019-12-20 08:27 | MORECARE ---
CASE MANAGEMENT DISCHARGE SUMMARY PATIENT: CY BOLES UNIT: [id number] ADM DATE: 12/13/19 AGE: 69 : 52 SEX: M ROOM/BED: D.2236 AUTHOR: ALBARO,DOC PHYSICIAN: REFERRING PHYSICIAN: AMELIA RAYMUNDO MD DATE OF SERVICE: 12/20/19 Discharge Plan Patient Name: CY BOLES Facility: [facility]:[place] : 1950 Planned Disposition: Anticipated Discharge Date: Discharge Date: 12/17/2019 Expected LOS: Initial Reviewer: [email or web address] Initial Review Date: 12/13/2019 Generated: 12/20/19 9:27 am Comments DCP- Discharge Planning Updated by [email or web address]: Ifrah Palmer on 12/17/19 3:[address] Patient Name: CY BOLES Admission Status: ER Accout number: [id number] Admission Date: 12-13-2019 : 1950 Admission Diagnosis:RASH AND OTHER NONSPECIFIC SKIN ERUPTION Attending: AMELIA RAYMUNDO Current LOS: 4 Anticipated DC Date: Planned Disposition: Primary Insurance: MEDICARE A & B Discharge Planning Comments: PATIENT STATES CURRENT WITH [facility]. HOLLY SIGNED TO RESUME [facility] AND IMM SIGNED. FAXING OVER CLINICALS TO [facility] NOW. CM TO FOLLOW AND ASSIST. Inbound Call Center Agent: Ifrah Palmer Appended by Ifrah Palmer on 12/17/2019 16:12 CDT: [facility] WILL SEE FRIDAY. DCP- Discharge Planning Updated by [id number]: Ifrah Palmer on 12/14/19 1:[address] Patient Name: CY BOLES Admission Status: ER Accout number: [id number] Admission Date: 12-13-2019 : 1950 Admission Diagnosis: Attending: AMELIA RAYMUNDO Current LOS: 1 Anticipated DC Date: Planned Disposition: Primary Insurance: MEDICARE A & B Discharge Planning Comments: CM met with patient at bedside after explaining CM role and obtaining verbal consent. CM discussed availability / needs of home health, REHAB and medical equipment. STATES DOES NOT WANT HH OR REHAB. IF IT LOOKS LIKE HE WILL NEED IT AT DISCHARGE I WILL SEND REFERRALS IF HE WILL AGREE. CM TO FOLLOW AND ASSIST. Inbound Call Center Agent: Ifrah Palmer DCPIA - Discharge Planning Initial Assessment Updated by [id number]: Ifrah Palmer on 12/14/19 2:39 pm * Is the patient Alert and Oriented? Yes * PCP KASH * Pharmacy [facility] * Preadmission Environment Home Alone * ADLs Independent * Other Equipment HAS WALKER AND WC IF NEEDED. * List name and contact numbers for known caregivers / representatives who currently or will assist patient after discharge: AGA [phone] * Community resources currently utilized None * Has this patient been hospitalized within the prior 30 days at any hospital? No Coverage Notice Reviewer: [id number] Palmer Notice Issued Date-Time: 12/17/2019 12:45 Notice Type: IM Discharge Notice Notice Delivered To: Patient Relationship to Patient: Advertising Manager Name: Delivery Method: HAND - Hand Delivered Lana Days: Prior Verbal Notification: Recipient Understood Notice: Yes Recipient Signature: Yes Med Rec Note Co-signed by Attending: Coverage Notice Comment: Reviewer: [email or web address] Palmer Notice Issued Date-Time: 12/17/2019 12:45 Notice Type: Patient Choice Letter Notice Delivered To: Patient Relationship to Patient: Advertising Manager Name: Delivery Method: HAND - Hand Delivered Lana Days: Prior Verbal Notification: Recipient Understood Notice: Yes Recipient Signature: Yes Med Rec Note Co-signed by Attending: Coverage Notice Comment: Last DP export: 12/17/19 3:15 p Patient Name: CY BOLES Page 75781 at 0827 All edits/amendments must be made on the electronic document DICTATION DATE: 12/20/19826 PLUMBING ASSEMBLER: ROSANA 12/20/19826 RPT#: [id number] DC DATE:12/17/19 STATUS: DIS IN [facility] [address] [place] [address] END OF REPORT
== END 2019-12-17 17:55 | disposition home health service (06) | DRG 728 ==
LOC: D.ER 15:09 → D.MS 18:52
PROVIDERS: Family Medicine; ADMIT Family Medicine; ATTEND Family Medicine
DX: N49.2 Inflammatory disorders of scrotum (principal); Z68.42 Body mass index [BMI] 45.0-49.9, adult; E87.1 Hypo-osmolality and hyponatremia; I87.2 Venous insufficiency (chronic) (peripheral); E66.01 Morbid (severe) obesity due to excess calories; I10 Essential (primary) hypertension; I48.91 Unspecified atrial fibrillation

== ENCOUNTER 2020-12-30 21:57 | Emergency (ER) | payer MEDICARE, OTHER ==
[~2020-12-30] VITALS: Ht 190.5 cm; Wt 162.7 kg
[~2020-12-30 21:57] MED LIST changes: +COLACE100 MG PO; +Eucerin CREAM TOPICAL; +FUROSEMIDE20 MG PO; +HYDROCODON-ACE1 EA10 PO; +K-DUR20 MEQ PO; +KEFLEX500 MG PO; +MUCINEX600 MG PO; +NYSTATIN1 PWD TOPICAL; +TESSALON PERLE100 MG PO
[2020-12-30 22:00] VITALS: Ht 190.5 cm; Wt 162.7 kg
[2020-12-30] MEDS ORDERED: CIALIS10 MG PO (22:05)
[2020-12-30 22:25] LABS: BASOPHILS 0.3 % (0-2); EOSINOPHILS 5.4 % (0-7); HEMOGLOBIN 14.2 g/dL (13.5-17.5); LYMPHOCYTES 11.5 % (15-50); MCH 30.2 pg (26.0-34.0); MCV 91.4 fL (80.0-100.0); MEAN PLATELET VOLUME 6.7 fL (7.4-10.4); NEUTROPHILS 73.8 % (40-80); PLATELET COUNT 225 10x3/uL (130-400); RBC 4.71 10x6/uL (4.20-6.10); RDW 16.5 % (11.5-14.5); WBC 11.1 10x3/uL (4.8-10.8)
[2020-12-30 22:35] LABS: ANION GAP 15.1 mmol/L (8-16); CALCIUM 8.2 mg/dL (8.5-10.1); CARBON DIOXIDE 26.2 mmol/L (21.0-32.0); CREATININE - SERUM 1.2 mg/dL (0.6-1.3); POTASSIUM - SERUM 3.3 mmol/L (3.5-5.1)
[2020-12-30 22:37] LABS: APTT 73.9 SECONDS (22.8-39.4)
[2020-12-30 22:40] LABS: INR 5.92 (0.85-1.17); PROTIME 49.5 SECONDS (11.6-15.0)
[2020-12-30 22:42] LABS: ALBUMIN 3.1 g/dL (3.4-5.0); BILIRUBIN - TOTAL 1.1 mg/dL (0.2-1.3); MAGNESIUM - SERUM 1.7 mg/dL (1.8-2.4); PROTEIN - SERUM 7.2 g/dL (6.4-8.2)
[2020-12-31 01:00] VITALS: BP 206/101
== END 2020-12-31 01:17 | disposition other institution (70) ==
LOC: D.ER 21:57
PROVIDERS: Family Medicine
DX: I62.00 Nontraumatic subdural hemorrhage, unspecified (principal); Z79.01 Long term (current) use of anticoagulants; I48.20 Chronic atrial fibrillation, unspecified; R56.9 Unspecified convulsions; I10 Essential (primary) hypertension